=== PATIENT | male | born 1950 | race Caucasian/White ===

== ENCOUNTER → 2017-01-08 | Outpatient (CLI) | payer MEDICARE ==
[~2017-01-08] MED LIST: /TERBI25T PO; ASPI81CH32 PO; ATOR40TA PO; CINA30TA PO; DIAL3000 PO; FURO1TAB15 PO; GABA-279 PO; HUMU70IN SC; INSULADS SC; LOSA100T36 PO; Lantus SQ; PANT40TA2 PO; RENV2.4P PO; SERT-155 PO; SUCR1TA PO; SUCR1TAB56 PO; Spironolactone PO; THYR30TA PO; TORS20TA2 PO; TRIL600T PO
== END ==
LOC: M LAB 12:17
PROVIDERS: ATTEND Internal Medicine Nephrology
DX: Z99.2 Dependence on renal dialysis (principal)

== ENCOUNTER 2017-01-12 19:46 | Inpatient (IN) | payer MEDICARE ==
[~2017-01-12] VITALS: Ht 172.7 cm; Wt 92.7 kg
[~2017-01-12 19:46] MED LIST changes: -ASPI81CH32 PO; -ATOR40TA PO; -CINA30TA PO; -DIAL3000 PO; -FURO1TAB15 PO; -GABA-279 PO; -INSULADS SC; -PANT40TA2 PO; -RENV2.4P PO; -SERT-155 PO; -SUCR1TA PO; -SUCR1TAB56 PO
[2017-01-12] MEDS ORDERED: PANTOPRAZOLE 40MG INJ (PROTONIX) (C9113) IV ONE (20:45)
[2017-01-12 20:46] LABS: BASO % 0.4 % (0.0-1.0); EOS # 0.1 K/mm3 (0.0-0.50); EOS % 1.4 % (0.0-3.0); LARGE UNSTAINED CELL # 0.1 K/mm3 (0.0-0.4); LARGE UNSTAINED CELL % 1.2 % (0.0-4.0); LYMPH # 1.6 K/mm3 (1.5-4.5); LYMPH % 16.7 % (24.0-44.0); MEAN CORPUSCULAR HEMOGLOBIN 28.9 pg (27.0-33.0); MEAN CORPUSCULAR HGB CONC 32.2 g/dl (32.0-36.5); MEAN CORPUSCULAR VOLUME 89.8 fl (80.0-96.0); MONO # 0.6 K/mm3 (0.0-0.8); MONO % 6.3 % (0.0-5.0); NEUTROPHILS # 6.5 K/mm3 (1.8-7.7); NEUTROPHILS % 74.1 % (36.0-66.0); PLATELET COUNT, AUTOMATED 355 k/mm3 (150-450); RED CELL DISTRIBUTION WIDTH 12.5 % (11.5-14.5); WHITE BLOOD COUNT 8.8 K/mm3 (4.0-10.0)
[2017-01-12 20:52] LABS: INR 1.15
[2017-01-12 21:11] LABS: CALCIUM LEVEL 7.6 MG/DL (8.8-10.2); CREATININE FOR GFR 6.01 MG/DL (0.70-1.30); GLOMERULAR FILTRATION RATE 10.1 (>49)
[2017-01-12] MEDS ORDERED: CINA30TA PO (21:58)
[2017-01-12] MEDS ORDERED: DIAL3000 PO (21:58)
[2017-01-12] MEDS ORDERED: GABA-279 PO (21:58)
[2017-01-12] MEDS ORDERED: SERT-155 PO (21:58)
[2017-01-12] MEDS ORDERED: ASPI81CH32 PO (21:58)
[2017-01-12] MEDS ORDERED: ATOR40TA75 PO (21:58)
[2017-01-12] MEDS ORDERED: RENV2.4P PO (21:58)
[2017-01-12] MEDS ORDERED: FURO80TA2 PO (21:58)
[2017-01-12] MEDS ORDERED: INSULADS SC (21:59)
[2017-01-12] MEDS ORDERED: GLUCOSE 4 GM CHEW TABLET PO PRN (23:00)
[2017-01-12] MEDS ORDERED: GLUCAGON FOR INJ 1 MG VIAL (J1610) SC PRN (23:00)
[2017-01-12] MEDS ORDERED: DEXTROSE 50% 50 ML SYRINGE IV PRN (23:00)
[2017-01-12] MEDS ORDERED: ONDANSETRON 4MG/2ML VIAL (J2405) IV PRN (23:00)
[2017-01-13] VITALS (23 sets, daily range): BP systolic 109–181; BP diastolic 58–99
[2017-01-13] MEDS: PANTOPRAZOLE SODIUM 40 MG in D5W MINI-BAG PLUS 50 ML IV SCH ×5 (00:04→17:17)
[2017-01-13] MEDS: HumaLOG INSULIN (NovoLOG) PER UNIT SC SCH ×4 (00:11→17:18)
--- NOTE | 2017-01-13 01:36 | HPE ---
DATE OF ADMISSION: 01/12/2017 PRIMARY CARE PROVIDER: Gabriela Argueta, resident clinic. CHIEF COMPLAINT: Dark tarry stools. HISTORY OF PRESENT ILLNESS: The patient is a 66-year-old man with end-stage renal disease on hemodialysis Friday, Friday, Friday who was reportedly admitted to [facility] on 12/18 and was there for several days in [place]. He tells me that he had lots of fluid and had extra sessions of hemodialysis and Lasix and improved significantly. Upon discharge, he was started on a baby aspirin and told to have a stress test conducted locally when he got back home here. Over the last several days, the patient has noted progressively worsening fatigue, shortness of breath with exertion and then dark tarry stools. For the last 24-48 hours he has noted lightheadedness and dizziness when standing and today noticed ana blood in his stool, which prompted him to present to the emergency room. The patient also has had epigastric pain, which has progressively worsened over the last several days. He denies chest pain, nausea, vomiting. PAST MEDICAL HISTORY: 1. End-stage renal disease followed by Dr. Waters. 2. Secondary hyperparathyroidism. 3. Insulin-dependent diabetes mellitus. 4. Diabetic neuropathy, retinopathy and nephropathy. 5. Hypertension. 6. Dyslipidemia. 7. Obstructive sleep apnea. 8. Depression with inpatient mental health admissions. ALLERGIES: METFORMIN, ROSIGLITAZONE. PAST SURGICAL HISTORY: 1. Bilateral cataract surgery. 2. Gastric bypass surgery and repair. 3. Bilateral shoulder arthroscopy. SOCIAL HISTORY: Lives with his . He is a former drinker, but quit drinking months ago. He is retired. HOME MEDICATIONS: - aspirin 81 mg daily - atorvastatin 40 mg daily - cinacalcet 30 mg daily - Lasix 80 mg three times a day - gabapentin 100 mg daily - sertraline 150 mg daily - Lantus 8-14 units subcutaneously twice a day - Renvela 2.4 grams one packet three times a day - Daily-Isidro 3 mg one tablet REVIEW OF SYSTEMS: Negative other than history of present illness (HPI). FAMILY HISTORY: Noncontributory. PHYSICAL EXAMINATION: VITAL SIGNS: Temperature 98.5, pulse 116, respiratory rate 18, oxygen saturation 96% on room air, blood pressure 109/55. GENERAL: He is a pale, elderly man lying in a stretcher. He does not appear to be in any acute distress. HEENT: He has conjunctival pallor. Moist mucous membranes. No elevation of central venous pressure (CVP). CARDIOVASCULAR EXAMINATION: S1, S2, he is tachycardic with distant heart sounds appreciated. RESPIRATORY EXAMINATION: Clear. ABDOMINAL EXAMINATION: There is tenderness to palpation in the epigastric region. Bowel sounds are present. The abdomen is otherwise soft. EXTREMITIES: No clubbing or cyanosis. There is 1-2+ edema bilaterally. LABORATORY STUDIES: WBC 8.8, hemoglobin 6.5, hematocrit 20.2, platelet count 355. Chemistry panel: Sodium 133, potassium 5.0, chloride 94, bicarbonate 29, BUN 76 , creatinine 6.0. INR is 1.1. No imaging. ASSESSMENT AND PLAN: This is a 66-year-old man with end-stage renal disease presenting now with gastrointestinal (GI) bleed. 1. GI bleed. Given his epigastric symptoms and his recent start of a nonsteroidal antiinflammatory drug (NSAID), although it is a baby aspirin, there is concern for upper GI bleed potentially related to anastomosis site related to gastric bypass surgery versus other ulcer. Given that his blood pressure is somewhat soft and he is tachycardic and likely orthostatic, I will admit him to the medical intensive care unit for a Protonix drip. He is to receive two units of packed red blood cells (PRBCs) stat. We will trend his hemoglobin and hematocrit and transfuse more if necessary. I have spoken with Dr. Mcdermott already this evening. I requested a consultation for general surgery. If the patient fails to improve or his bleeding fails to resolve with the aforementioned measures, he may require endoscopy. They have agreed to see the patient in consultation. The patient is nothing by mouth. 2. End-stage renal disease on hemodialysis and secondary hyperparathyroidism. Will place a consult to Dr. Waters, who will be co-provider tomorrow morning for his regular scheduled hemodialysis. I would suspect the patient will receive several units of blood and will require fluid removal as he appears to be fluid overloaded already. 3. Insulin-dependent diabetes mellitus. Will place him on sliding scale and fingersticks every 6 hours. In relation to his diabetic neuropathy, will continue with his gabapentin. 4. Depression. Continue sertraline. 5. Dyslipidemia. The patient is continued on atorvastatin. 6. Coronary artery disease. It is questionable diagnosis. The patient was started on a statin and an aspirin after being in congestive heart failure (CHF) while in [facility] last month. It is possible that he was found to have coronary artery disease during that stay. I will put a records request in to obtain the discharge summary from that hospitalization. 7. Deep venous thrombosis (DVT) prophylaxis. Sequentials and thromboembolism deterrent stockings (TEDS), no pharmacological agents. DISPOSITION: The patient is admitted to medical intensive care unit to Dr. Guerrier's service who will continue following the patient at 7 a.m. [facility]
[2017-01-13 04:05] LABS: BASO % 0.4 % (0.0-1.0); EOS % 0.4 % (0.0-3.0); LARGE UNSTAINED CELL # 0.1 K/mm3 (0.0-0.4); LARGE UNSTAINED CELL % 1.4 % (0.0-4.0); LYMPH # 1.4 K/mm3 (1.5-4.5); LYMPH % 16.5 % (24.0-44.0); MEAN CORPUSCULAR HEMOGLOBIN 30.3 pg (27.0-33.0); MEAN CORPUSCULAR HGB CONC 34.5 g/dl (32.0-36.5); MEAN CORPUSCULAR VOLUME 87.7 fl (80.0-96.0); MONO # 0.6 K/mm3 (0.0-0.8); MONO % 6.8 % (0.0-5.0); NEUTROPHILS % 74.5 % (36.0-66.0); PLATELET COUNT, AUTOMATED 269 k/mm3 (150-450); RED CELL DISTRIBUTION WIDTH 13.6 % (11.5-14.5)
[2017-01-13 04:27] LABS: ALBUMIN 2.1 GM/DL (3.2-5.2); ALBUMIN/GLOBULIN RATIO 0.7 (1.00-1.93); BILIRUBIN,TOTAL 0.9 MG/DL (0.2-1.0); CALCIUM LEVEL 7.6 MG/DL (8.8-10.2); CREATININE FOR GFR 6.11 MG/DL (0.70-1.30); GLOMERULAR FILTRATION RATE 9.9 (>49); POTASSIUM SERUM 4.9 MEQ/L (3.5-5.1); TOTAL PROTEIN 5.1 GM/DL (6.4-8.2)
[2017-01-13] MEDS: SERTRALINE HCL 50 MG TAB PO SCH (08:56)
[2017-01-13] MEDS: ATORVASTATIN 20 MG TAB PO SCH (08:56)
[2017-01-13] MEDS: CINACALCET 30 MG TAB (SENSIPAR) PO SCH (08:56)
[2017-01-13] MEDS ORDERED: GABAPENTIN 100 MG CAP PO SCH (09:00)
[2017-01-13 13:05] LABS: MEAN CORPUSCULAR HEMOGLOBIN 30.3 pg (27.0-33.0); MEAN CORPUSCULAR HGB CONC 34.7 g/dl (32.0-36.5); MEAN CORPUSCULAR VOLUME 87.3 fl (80.0-96.0); RED CELL DISTRIBUTION WIDTH 13.8 % (11.5-14.5); WHITE BLOOD COUNT 9.8 K/mm3 (4.0-10.0)
--- NOTE | 2017-01-13 14:23 | CR ---
DATE OF CONSULTATION: 01/13/2017 REASON FOR CONSULTATION: Gastrointestinal (GI) bleed in this gentleman with end-stage renal disease who is in need for dialysis. HISTORY OF PRESENT ILLNESS: Mr. Rico is a 66-year-old gentleman with known history of diabetes, hypertension, dyslipidemia, end-stage renal disease and secondary hyperparathyroidism. He is admitted due to tarry stools and some rectal bleeding. His hemoglobin was noticed to be 6.5 on admission. He has been transfused 3 units of packed RBCs. I was notified this morning about his admission and a nephrology consultation was requested. The patient is seen this morning in the intensive care unit. PAST MEDICAL AND SURGICAL HISTORY: Significant for: 1. End-stage renal disease secondary to diabetic nephropathy. 2. Hypertension. 3. Insulin-dependent diabetes. 4. Anemia of chronic kidney disease. 5. Secondary hyperparathyroidism. 6. Dyslipidemia. 7. History of obstructive sleep apnea. 8. History of depression. 9. Prior history of gastric bypass surgery. PAST SURGICAL HISTORY: Significant for: 1. Bilateral cataract surgery. 2. Bilateral shoulder arthroscopy. 3. Gastric bypass surgery. 4. Left arm AV fistula creation. MEDICATIONS: His home medications include: - aspirin 81 mg daily - atorvastatin 40 mg daily - cinacalcet 30 mg daily - Lasix 80 mg three times a week - gabapentin 100 mg daily - sertraline 150 mg daily - Lantus insulin 14 units twice a day - Renvela three tablets three times a day with meals - multivitamin one tablet daily PERSONAL AND SOCIAL HISTORY: Patient is and lives with his five. He has history of prior drinking which he has quit a while ago. He does not smoke. FAMILY HISTORY: Negative for end-stage renal disease. REVIEW OF SYSTEMS: The patient denies any fever or chills. He recently moved to [facility] from [place]. He missed his dialysis treatment, I believe on Friday. He reports to be compliant with dialysis previously. Ears, nose and throat are unremarkable. Cardiovascular system negative for known coronary artery disease. He has a history of congestive heart failure with diminished left ventricular systolic function. Pulmonary system is negative for cough or hemoptysis. GI system is as per history of present illness. The patient reports multiple stools with either dark red or black color. He denies any vomiting. system is negative for dysuria or hematuria. Musculoskeletal system significant for chronic leg edema. Ears, nose and throat are unremarkable. Hematological system is significant for anemia of chronic kidney disease which has now worsened with acute blood loss. He has not had any anticoagulation other than aspirin. Psychosocial system significant for depression. Neurological system negative for seizures. Skin is negative for rash or ulcers. PHYSICAL EXAMINATION: The patient looks pale but not in any acute distress. He is sitting in the chair at the time of my initial visit. Temperature 97.9 degrees Fahrenheit, heart rate 92 per minute and respiratory rate 20 per minute. Blood pressure 135/62 mmHg and oxygen saturation 94% on room air. Head is atraumatic. Ears, nose and throat are unremarkable. Neck is supple and JVD is elevated at about angle. Heart exam reveals tachycardia but no pericardial friction rub. Systolic murmur grade 2/6 is audible. Lungs clear to auscultation bilaterally. Abdomen soft and minimal tenderness in epigastric area is present. Bowel sounds are normal. Extremities have 1+ edema but no cyanosis or clubbing. Left arm AV fistula is patent. Neurologically he is awake, alert and oriented times three. LABORATORY DATA: On admission, hemoglobin was 6.5 and hematocrit 20.2. WBC count 8.8, and platelets 355. Repeat hemoglobin was 7.3 and most recent one is 8.6. Sodium is 134 and potassium 4.9, BUN 80 and creatinine 6.11. Calcium level 7.6, total protein 5.1 and albumin 2.1. PROBLEMS: 1. Acute GI bleed. I am concerned about the possibility of uremic gastritis as the patient has missed dialysis treatment. He will be scheduled for dialysis later this afternoon. Do not use any heparin during dialysis treatment. The patient is also going to have upper endoscopy later this afternoon and will try to get his dialysis completed prior to endoscopy. He has been transfused 3 units of packed RBCs and we will consider to transfuse him further as needed. He should have another CBC drawn at the start of dialysis. 2. End-stage renal disease. The patient is regularly dialyzed on Friday, Friday and Friday schedule. He did miss his dialysis treatment on Friday. He will be dialyzed today and then we will try to keep him on his regular schedule. 3. Congestive heart failure. His volume status is slightly decompensated. Will remove about 3 liters of fluid with hemodialysis. At this point he should not be transfused unless it is an emergency or he is being dialyzed. We will transfuse him during dialysis if needed. 4. Hypertension. Blood pressure is reasonable on current medications and in fact he is currently not receiving any antihypertensives. 5. Secondary hyperparathyroidism. The patient has been on Sensipar during week days and he also receives vitamin D analog during hemodialysis. We will check his intact PTH level and then consider further steps. I thank you for involving me in the care of Mr. Rico. I will follow him along with you.
--- NOTE | 2017-01-13 18:16 | ROOR ---
Patient Name: Octavio Rico Procedure Date: 01/13/2017 5:20 PM Date of : 1950 Age: 66 Gender: Male Note Status: Finalized Procedure: Upper GI endoscopy Indications: Melena Providers: Melecio Peters MD Referring MD: Nereyda Guerrier MD Requesting Provider: Medicines: Monitored Anesthesia Care Complications: No immediate complications. Procedure: Pre-Anesthesia Assessment: - Prior to the procedure, a History and Physical was performed, and patient medications and allergies were reviewed. The patient is competent. The risks and benefits of the procedure and the sedation options and risks were discussed with the patient. All questions were answered and informed consent was obtained. Patient identification and proposed procedure were verified by the physician, the nurse and the cloth opener hand in the procedure room. Mental Status Examination: alert and oriented. Airway Examination: normal oropharyngeal airway and neck mobility. Respiratory Examination: clear to auscultation. CV Examination: normal. Prophylactic Antibiotics: The patient does not require prophylactic antibiotics. Prior Anticoagulants: The patient has taken aspirin, last dose was 1 day prior to procedure. ASA Grade Assessment: IV - A patient with severe systemic disease that is a constant threat to life. After reviewing the risks and benefits, the patient was deemed in satisfactory condition to undergo the procedure. The anesthesia plan was to use monitored anesthesia care (MAC). Immediately prior to administration of medications, the patient was re-assessed for adequacy to receive sedatives. The heart rate, respiratory rate, oxygen saturations, blood pressure, adequacy of pulmonary ventilation, and response to care were monitored throughout the procedure. The physical status of the patient was re-assessed after the procedure. The Endoscope was introduced through the and advanced to the. The Endoscope was introduced through the mouth, and advanced to the afferent and efferent jejunal loops. The upper GI endoscopy was accomplished without difficulty. The patient tolerated the procedure well. Findings: The examined esophagus was normal. Two non-bleeding cratered gastric ulcers with pigmented material were found at the anastomosis. The largest lesion was 10 mm in largest dimension. Clot removal with lavage was attempted. This was partially successful and revealed a non-bleeding lesion with an adherent clot (Mahad Class IIb). Estimated blood loss: none. Exam of the jejunum was otherwise normal. Impression: - Normal esophagus. - Non-bleeding gastric ulcers with pigmented material. - No specimens collected. Recommendation: - Admit the patient to hospital young for ongoing care. - Resume regular diet today. - Use Protonix (pantoprazole) 40 mg PO BID for 3 months. Melecio Peters MD Melecio Peters MD 01/13/2017 6:16:04 PM This report has been signed electronically. Number of Addenda: 0 Note Initiated On: 01/13/2017 5:20 PM Estimated Blood Loss: Estimated blood loss: none.
--- NOTE | 2017-01-13 18:47 | IPNPDOC ---
Text Note Date of Service The patient was seen on 01/13/17. NOTE Subjective: Octavio Rico is a 66 year old male with a h/o CHF, ESRD, IDDM, hypertension, dyslipidemia, depression, diabetic neuropathy, retinopathy and nephropathy with secondary hyperparathyroidism status post gastric bypass in 2009 who presents with the chief complaint of black, tarry stools. The stools start as a black solid and at the end turn to a dark maroon liquid which is described as tarry in consistency. He has had multiple episodes of melena ( about 4 to 5) since yesterday and has never had a GI bleed before. He was seen in the ED yesterday and admitted after a stool GUAIAC was positive. He complains of SOB, light headedness, and dizziness when sitting up. Increasing generalized weakness and fatigue which he rates as 8/10 in severity but states he is always fatigued at baseline. Some lower abdominal pain and nausea with dry heaves but no vomiting or hematemesis. Patient states there used to be a painful, "rock hard lump at the incision site" after his gastric bypass which has since improved on its own. Reports some pedal edema which is unchanged from his baseline. No chest pain or palpitations. No fever or chills. Of note, he was seen at [facility] in [place], [place] on where a CXR showed "fluid in my lungs". He was started on a statin and aspirin 81mg daily and referred for a stress test at that time but never completed one. Denies any history of WA in the past. Objective: Vitals: T:97.9F BP:135/62 RR:20 P:93 O2 Saturation: 94% RA General: Alert, elderly gentleman in no acute distress. Lying in gurney. HEENT: Head: normocephalic, atraumatic. Eyes: PERRL, sclera are nonicteric. Pale conjunctivae. Nose: No external lesions Throat: no pharyngeal erythema or exudates, moist buccal mucosa Neck: Strong, visible waveform pulsations R jugular > L Respiratory: clear to auscultation bilaterally with no wheezes, rales, or rhonchi. Cardiovascular: Tachycardia. There is a systolic murmur appreciated at the right parasternal and left upper parasternal areas. Abdomen: Palpable area of soft tissue in epigastric region that is nontender. Bilateral lower quadrantal tenderness, greatest in the midline lower abdomen. soft, no hepatosplenomegaly appreciated. Bowel sounds present. Extremities: 5/5 strength in upper and lower extremities bilaterally. 3+ pitting pretibial edema bilaterally. Neurological: sensation intact and symmetrical in upper and lower extremities bilaterally. Responds and answers questions appropriately. Lymphatics: no palpable lymph nodes, swollen glands Integumentary: skin free from rashes, lesions, abrasions Vascular: pulses palpable and symmetrical in upper and lower extremities bilaterally. Fistula in place left arm Laboratory data: CBC RBC 2.95 from 2.41 and 2.25 Hgb 8.6 from 7.3 and 6.5 Hct 24.8 from 21.2 and 20.2 CMP Na 134 from 133 Cl 97 from 94 BUN 80 from 76 Cr 6.11 from 6.01 Ca 7.6 from 7.6 Glucose 125 from 92 from 189 albumin low at 2.1 PTH high at 129.2 PT high at 14.8 INR 1.15 PTT 32.3 See remainder of laboratory data below Microbiology: none Imaging: none Assessment/Plan: Acute GI bleed: Suspect NSAID (aspirin) induced vs. anastamotic site bleed of gastric bypass surgery vs. ulcer vs. uremic gastritis. Continue protonix drip. Status-post 2 units PRBCs. Trend H&H and transfuse as necessary. General Surgery consulted for possible EGD. Patient made NPO for this procedure. Normocytic Anemia/Anemia of Chronic Disease: most likely related to blood loss and/or ESRD. Monitor H&H. Transfuse PRN. ESRD on HD on MWF schedule: Nephrology consulted. Follow recommendations. 2/2 Hyperparathyroidism: Follow Nephrology recommendations. IDDM: continue ISS and fingersticks q6h. Diabetic Neuropathy: continue gabapentin. HTN: currently controlled and stable. Continue to monitor. Depression: continue sertraline. Dyslipidemia: continue atorvastatin. ?CAD Dx: On a statin and aspirin after CHF Tx in [facility] last month. Continue statin. Hold aspirin as this could be the cause of his GI bleed. CHF: continue recommendations by nephrology to manage fluid status. DVT ppx: TEDs and SCDs. No pharmacologic ppx recommended at this time due to GI bleed. Immunizations as per protocol. My preceptor for this patient encounter was Dr. Nereyda Guerrier, and was physically present in the building during the encounter and was fully available. As needed, all aspects of the patient interview, examination, medical decision making process, and medical care plan development were reviewed and approved by the preceptor. Preceptor is aware and concurs with the plan as stated in the body of this note and will attest to such by his/her cosignature. VS,Fishbone, I+O VS, Fishbone, I+O Laboratory Tests 01/12/17 20:36 Red Blood Count 2.25 L, Mean Corpuscular Volume 89.8, Mean Corpuscular Hemoglobin 28.9, Mean Corpuscular Hemoglobin Concent 32.2, Red Cell Distribution Width 12.5, Neutrophils (%) (Auto) 74.1 H, Lymphocytes (%) (Auto) 16.7 L, Monocytes (%) (Auto) 6.3 H, Eosinophils (%) (Auto) 1.4, Basophils (%) ( Auto) 0.4, Neutrophils # (Auto) 6.5, Lymphocytes # (Auto) 1.6, Monocytes # (Auto ) 0.6, Eosinophils # (Auto) 0.1, Basophils # (Auto) 0.0, Calcium Level 7.6 L 01/13/17 03:46 Red Blood Count 2.41 L, Mean Corpuscular Volume 87.7, Mean Corpuscular Hemoglobin 30.3, Mean Corpuscular Hemoglobin Concent 34.5, Red Cell Distribution Width 13.6, Neutrophils (%) (Auto) 74.5 H, Lymphocytes (%) (Auto) 16.5 L, Monocytes (%) (Auto) 6.8 H, Eosinophils (%) (Auto) 0.4, Basophils (%) ( Auto) 0.4, Neutrophils # (Auto) 6.0, Lymphocytes # (Auto) 1.4 L, Monocytes # ( Auto) 0.6, Eosinophils # (Auto) 0.0, Basophils # (Auto) 0.0, Calcium Level 7.6 L , Aspartate Amino Transf (AST/SGOT) 15, Alanine Aminotransferase (ALT/SGPT) 16, Alkaline Phosphatase 70, Total Bilirubin 0.9, Total Protein 5.1 L, Albumin 2.1 L 01/13/17 08:55 01/13/17 12:38 Red Blood Count 2.95 L, Mean Corpuscular Volume 87.3, Mean Corpuscular Hemoglobin 30.3, Mean Corpuscular Hemoglobin Concent 34.7, Red Cell Distribution Width 13.8 Vital Signs Date Time Temp Pulse Resp B/P (MAP) Pulse Ox O2 Delivery O2 Flow Rate FiO2 01/13/17 11:47 97.9 93 20 150/70 (96) 93 01/13/17 09:35 Room Air 01/13/17 08:00 2.0 I&O- Last 24 Hours up to 6 AM 01/13/17 05:59 Intake Total 0 ml Output Total 150 ml Balance -150 ml MARY HECK OGME-1 Jan 13, 2017 14:51
[2017-01-13] MEDS: PANTOPRAZOLE 40MG TAB (PROTONIX) PO SCH (20:28)
[2017-01-13] MEDS: SUCRALFATE 1 GM TAB PO SCH (20:28)
[2017-01-13] MEDS ORDERED: HumaLOG INSULIN (NovoLOG) PER UNIT SC SCH (21:00)
[2017-01-13] MEDS ORDERED: SLF 3 ML SYR IV PRN (21:15)
[2017-01-13] MEDS: SLF 3 ML SYR IV SCH (21:33)
[2017-01-14 04:28] VITALS: BP 132/54
[2017-01-14] MEDS: SLF 3 ML SYR IV SCH (05:14)
[2017-01-14 07:06] LABS: MEAN CORPUSCULAR HEMOGLOBIN 30.3 pg (27.0-33.0); MEAN CORPUSCULAR HGB CONC 34.4 g/dl (32.0-36.5); MEAN CORPUSCULAR VOLUME 88.2 fl (80.0-96.0); RED CELL DISTRIBUTION WIDTH 13.9 % (11.5-14.5); WHITE BLOOD COUNT 7.3 K/mm3 (4.0-10.0)
[2017-01-14 07:23] LABS: CALCIUM LEVEL 8.1 MG/DL (8.8-10.2); CREATININE FOR GFR 4.36 MG/DL (0.70-1.30); GLOMERULAR FILTRATION RATE 14.6 (>49); POTASSIUM SERUM 4.4 MEQ/L (3.5-5.1)
[2017-01-14 08:05] VITALS: BP 128/64
[2017-01-14] MEDS: CINACALCET 30 MG TAB (SENSIPAR) PO SCH (08:06)
[2017-01-14] MEDS: HumaLOG INSULIN (NovoLOG) PER UNIT SC SCH ×2 (08:06→11:58)
[2017-01-14] MEDS: SUCRALFATE 1 GM TAB PO SCH ×2 (08:06→11:57)
[2017-01-14] MEDS: SERTRALINE HCL 50 MG TAB PO SCH (08:06)
[2017-01-14] MEDS: ATORVASTATIN 20 MG TAB PO SCH (08:06)
[2017-01-14] MEDS: PANTOPRAZOLE 40MG TAB (PROTONIX) PO SCH (08:07)
[2017-01-14] MEDS ORDERED: PANT40TA2 PO (11:05)
[2017-01-14] MEDS ORDERED: SUCR1TA PO (11:05)
--- NOTE | 2017-01-14 17:34 | IPN ---
DATE: 01/14/2017 Mr. Rico is seen this morning on his bedside. He underwent hemodialysis yesterday which he tolerated very well. He also had upper endoscopy done by Dr. Peters late afternoon which showed two nonbleeding ulcers near the anastomoses. He has history of gastric bypass in the past. Since initial transfusion of three units of packed red blood cells (RBCs), his hemoglobin and hematocrit have remained stable. He denies any further black stools or blood in the rectum. There is no nausea or vomiting and he is tolerating diet very well. He denies any dyspnea or chest pain. PHYSICAL EXAMINATION: On physical examination, temperature 97.3 degrees Fahrenheit, heart rate 110 per minute and respiratory rate 18 per minute. Blood pressure 128/64 mmHg and oxygen saturation 97% on two liters oxygen. Head is atraumatic. Neck is supple and jugular venous distention (JVD) is mildly elevated above sternal angle. Ears, nose and throat are unremarkable. Heart sounds are irregular in rhythm. Lungs with few basilar rales bilaterally. Abdomen is soft and nontender and without a palpable organomegaly. Extremities without any cyanosis or clubbing. Left arm arteriovenous (AV) fistula is patent. Neurologically, he is awake, alert and oriented times three. LABORATORY DATA: Today's laboratories show sodium level 136 and potassium 4.4. BUN 45 and creatinine 4.36. Calcium 8.1. WBC count 7.3, hemoglobin 8.5 and hematocrit 24.8. Platelets are 290. PROBLEMS: 1. Acute blood loss anemia. His hemoglobin was 6.5 on admission and he received three units of packed red blood cells (RBCs). Anemia has improved significantly since admission and has remained stable over the last 24 hours. 2. Gastrointestinal (GI) bleed and gastric ulcers. The patient will remain on a proton pump inhibitor (PPI). He did have two gastric ulcers but no active bleeding. He has been placed on Carafate 1 gram four times a day in addition to Protonix 40 mg twice a day which will be continued as outpatient. 3. End-stage renal disease. The patient was dialyzed yesterday and next dialysis will be scheduled for 01/15/2017 as an outpatient. We will not give him heparin during dialysis for the next two treatments. 4. Congestive heart failure. His volume status is mildly decompensated. We will try to remove about three liters of fluid with next hemodialysis on 01/15/2017. 5. Diabetes. His diabetes has been reasonably well-controlled during his stay here. The patient will resume his chronic insulin therapy at home. DISPOSITION: From a renal standpoint, the patient can be discharged to home today and followup as an outpatient. He has recently moved to [place] from [facility]. The patient will be seen in my office to establish for care and he will also followup at outpatient dialysis unit.
--- NOTE | 2017-01-14 19:45 | IPNPDOC ---
Text Note Date of Service The patient was seen on 01/14/17. VS,Vine, I+O VS, Fishbone, I+O Laboratory Tests 01/14/17 06:54 Red Blood Count 2.81 L, Mean Corpuscular Volume 88.2, Mean Corpuscular Hemoglobin 30.3, Mean Corpuscular Hemoglobin Concent 34.4, Red Cell Distribution Width 13.9, Calcium Level 8.1 L Vital Signs Date Time Temp Pulse Resp B/P (MAP) Pulse Ox O2 Delivery O2 Flow Rate FiO2 01/14/17 08:05 97.3 117 18 128/64 (85) 97 Nasal Cannula 2.0 I&O- Last 24 Hours up to 6 AM 01/14/17 06:00 Intake Total 940 ml Output Total 2550 ml Balance -1610 ml MARY HECK-1 Jan 14, 2017 19:45
--- NOTE | 2017-01-14 19:51 | DS.PDOC ---
Discharge Summary General Date of Admission Jan 12, 2017 at 22:54 Date of Discharge 01/14/17 Primary Care Physician: GABRIELA ARGUETA DO Attending Physician: SANTOSH OROZCO DO Specialist/Consultants Involve: AMARI WATERS MD @ Specialist/Consultants Involve Dr. Ronnell Peters Discharge Summary Consults: Nephrology: Dr. Amari Waters General Surgery: Dr. Ronnell Peters Procedures performed during hospital stay: Upper GI Endoscopy Discharge diagnosis: Acute GI Bleed Normocytic Anemia Anemia of Chronic Disease Secondary diagnosis: End Stage Renal Disease on Hemodialysis on MWF schedule Secondary Hyperparathyroidism Insulin Dependent Diabetes Mellitus Diabetic Neuropathy Hypertension Depression Dyslipidemia Possible Coronary Artery Disease (unconfirmed) Congestive Heart Failure Hospital course: Mr. Rico is a 66 yo M with a PMH of ESRD (secondary to diabetic nephropathy) on HD on MWF schedule and secondary hyperparathyroidism, anemia of CKD, JACKELYN, depression, hx of gastric bypass surgery, CHF, IDDM, HTN, dyslipidemia , presented to [facility] ED on 01/12/17 for progressively worsening fatigue, SOB with exertion, lightheadedness and dizziness for 24-48 hours prior to arrival, and dark tarry stools with ana blood in his stool. He had just been discharged from [facility] in [place] on 12/18 for reported fluid overload for which he had extra session of HD and lasix with noted improvement. He was begun on a baby aspirin upon discharge. He was instructed to apparently have a stress test done back home here locally. However, he began to have the above noted symptoms several days after discharge. On the H&P physical examination, patient was reported to have epigastric tenderness to palpation and 1-2+ edema bilaterally. H&H was 6.5 and 20.2 respectively, BUN was 76, Cr was 6. Patient was admitted for GI bleed. There was a concern for upper GI bleed potentially related to the anastomatic site related to patient's gastric bypass surgery versus possible ulcer vs. NSAID induced bleed (recently begun aspirin). Patient was admitted to the ICU for protonix drip and received 3 units of PRBCs. General surgery was consulted. Nephrology was consulted for ESRD and secondary hyperparathyroidism as well as for fluid management. Patient was placed on insulin sliding scale and fingersticks q6h. His home medications were continued. Patient also may have coronary artery disease but this is a questionable diagnosis. After being at [facility] and treated for CHF, he was started on a statin and aspirin last month. Therefore, it is possible that they may have found CAD during that hospitalization. Patient was given DVT prophylaxis with TEDs and sequentials but no pharmacologic therapy due to bleeding risk. EGD was performed which showed normal esophagus, non-bleeding gastric ulcers with pigmented material at the anastamosis site of the gastric bypass surgical site, and no specimens were collected. A clot removal with lavage was attempted which was partially successful and revealed a non-bleeding lesion with an adherent clot (Mahad Class IIb). Jejunum was normal. Dr. Peters recommended for patient to resume his regular diet and to use protonix 40 mg PO BID x 3 months. During nephrology consult, Dr. Waters was concerned about the possibility of uremic gastritis as the patient had missed a dialysis treatment. Dr. Waters ordered a dialysis treatment on 01/13/17 and for patient to continue with his regular dialysis schedule. On 01/14/17, patient reported improvement in his symptoms and denied SOB, lightheadedness, dizziness, rectal bleeding. He was clinically and hemodynamically stable for discharge. His H&H was 8.5 and 24.8. BUN was 45 and Cr was 4.36. GFR was 14.6. PTH intact was 129.2. Progress note on date of discharge: Subjective: Patient seen and examined sitting up in chair. Denies headache, fevers, chills, lightheadedness, chest pain, SOB, nausea, vomiting, abdominal pain, diarrhea, constipation, weakness, dizziness, melena, hematochezia, hematemesis. Denies fatigue more than usual. Admits to some lower extremity edema but improved from prior after hemodialysis yesterday. Objective: Vitals: T:97.3 F BP:128/64 RR:18 P:117 O2 Saturation: 97% on 2L nasal cannula. General: Alert, elderly gentleman in no acute distress. Sitting up in chair. HEENT: Head: normocephalic, atraumatic. Eyes: PERRL, sclera are nonicteric. + Conjunctival pallor. Nose: No external lesions Neck: Supple. Respiratory: clear to auscultation bilaterally with no wheezes, rales, or rhonchi. Cardiovascular: Tachycardic rate. +Systolic murmur appreciated at the right parasternal and left upper parasternal areas. Abdomen: Soft, nontender, nondistended, no hepatosplenomegaly appreciated. Bowel sounds present. Extremities: 1-2+ pitting pretibial edema bilaterally. Neurological: no focal neurologic deficits appreciated bilaterally. Integumentary: skin free from rashes, lesions, abrasions Vascular: +2 dorsalis pedis and radial pulses palpable and symmetric bilaterally. Fistula in place left arm. Laboratory data: See remainder of laboratory data below Microbiology: none Imaging: none Assessment: 66 yo M presented for acute GI bleed suspected due to possible uremic gastritis vs. NSAID induced (aspirin) vs. anastamotic site of bleed of gastric bypass surgery vs. other ulcer. Status-post 3 units PRBCs. Disposition: Clinically and hemodynamically stable for discharge to home. Will stop aspirin. He will continue his other home medications. Follow-up: With Dr. Amari Waters in 1-[address] Peters within 1-2 weeks. With PCP within 3-5 days. Activity: As tolerated. Diet: Regular Medications on discharge: Please see below. Cc: Dr. Gabriela Argueta Time spent on discharge: 35 minutes. Vital Signs/I&Os Vital Signs Date Time Temp Pulse Resp B/P (MAP) Pulse Ox O2 Delivery O2 Flow Rate FiO2 01/14/17 08:05 97.3 117 18 128/64 (85) 97 Nasal Cannula 2.0 I&O- Last 24 Hours up to 6 AM 01/14/17 06:00 Intake Total 940 ml Output Total 2550 ml Balance -1610 ml Laboratory Data Labs 24H Laboratory Tests 2 01/13/17 20:22: Bedside Glucose (Misc Panel) 207H 01/14/17 06:54: Anion Gap 7L, Glomerular Filtration Rate 14.6L, Blood Urea Nitrogen 45H, Creatinine 4.36H, Sodium Level 136, Potassium Level 4.4, Chloride Level 100, Carbon Dioxide Level 29, Calcium Level 8.1L 01/14/17 11:51: Bedside Glucose (Misc Panel) 192H CBC/BMP Laboratory Tests 01/14/17 06:54 Red Blood Count 2.81 L, Mean Corpuscular Volume 88.2, Mean Corpuscular Hemoglobin 30.3, Mean Corpuscular Hemoglobin Concent 34.4, Red Cell Distribution Width 13.9, Calcium Level 8.1 L FSBS Laboratory Tests Test 01/13/17 20:22 01/14/17 11:51 Range/Units Bedside Glucose (Misc Panel) 207 192 80-115 MG/DL Discharge Medications Scheduled (Sertraline HCl) 50 Mg Tab, 50 MG PO DAILY, (Reported) (Dialyvite 3000 3 mg) 1 Tab Tab, 1 TAB PO DAILY, (Reported) Atorvastatin Calcium (Atorvastatin Calcium) 40 Mg Tab, 40 MG PO DAILY, (Reported ) Cinacalcet Hydrochloride (Sensipar) 30 Mg Tab, 30 MG PO DAILY, (Reported) Insulin Glargine (Lantus) 100 Unit/Ml Inj, 8-14 UNIT SC BID, (Reported) Pantoprazole Sodium (Pantoprazole Sodium) 40 Mg Tab, 40 MG PO BID, (Reported) Sevelamer Carbonate (Renvela Oral Suspension) 2.4 Gm Ron, 1 PKT PO WM, (Reported ) PATIENT STATES HAS BEEN TOO WEAK TO TAKE FOR FEW DAYS Sucralfate (Sucralfate) 1 Gm Tab, 1 GM PO ACHS, (Reported) Scheduled PRN Gabapentin (Gabapentin) 100 Mg Cap, 100 MG PO DAILY PRN for DIABETIC NEUROPATHY, (Reported) Allergies Coded Allergies: Metformin (Verified Adverse Reaction, Severe, Heart Failure, 12/04/12) Rosiglitazone (Verified Adverse Reaction, Severe, Heart Failure, 12/04/12) GME ATTESTATION GME ATTESTATION My preceptor for this patient encounter was Dr. Santosh Orozco, and was physically present in the building during the encounter and was fully available. As needed, all aspects of the patient interview, examination, medical decision making process, and medical care plan development were reviewed and approved by the preceptor. Preceptor is aware and concurs with the plan as stated in the body of this note and will attest to such by his/her cosignature. MARY HECK OGME-1 Jan 14, 2017 19:51
[2017-01-14] MEDS ORDERED: GABAPENTIN 100 MG CAP PO SCH (21:00)
== END 2017-01-14 12:45 | disposition home health service (06) | DRG 377 ==
LOC: M ED 20:14 → M ED INP 22:54 → M ICU 23:47 → M PCU 01-13 09:40
PROVIDERS: ADMIT Internal Medicine; ATTEND General Practice
PROC: 30233N1 Transfusion of Nonautologous Red Blood Cells into Peripheral Vein, Percutaneous Approach (ICD-10-PCS; principal; 2017-01-12)
PROC: 0DJ08ZZ Inspection of Upper Intestinal Tract, Via Natural or Artificial Opening Endoscopic (ICD-10-PCS; 2017-01-13)
PROC: 0DC68ZZ Extirpation of Matter from Stomach, Via Natural or Artificial Opening Endoscopic (ICD-10-PCS; 2017-01-13)
PROC: 5A1D00Z (ICD-10-PCS; 2017-01-14)
DX: K92.2 Gastrointestinal hemorrhage, unspecified (principal); N18.6 End stage renal disease; N25.81 Secondary hyperparathyroidism of renal origin; I13.2 Hypertensive heart and chronic kidney disease with heart failure and with stage 5 chronic kidney disease, or end stage renal disease; D62 Acute posthemorrhagic anemia; E11.40 Type 2 diabetes mellitus with diabetic neuropathy, unspecified; E78.5 Hyperlipidemia, unspecified; F32.9 Major depressive disorder, single episode, unspecified; I50.9 Heart failure, unspecified; I25.10 Atherosclerotic heart disease of native coronary artery without angina pectoris; E11.21 Type 2 diabetes mellitus with diabetic nephropathy; D63.1 Anemia in chronic kidney disease; G47.33 Obstructive sleep apnea (adult) (pediatric); Z79.899 Other long term (current) drug therapy; Z88.8 Allergy status to other drugs, medicaments and biological substances; E11.319 Type 2 diabetes mellitus with unspecified diabetic retinopathy without macular edema; Z79.82 Long term (current) use of aspirin; Z79.01 Long term (current) use of anticoagulants; K25.9 Gastric ulcer, unspecified as acute or chronic, without hemorrhage or perforation

== ENCOUNTER → 2017-01-16 | Outpatient (REF) | payer MEDICARE ==
[~2017-01-16] MED LIST changes: +ASPI81CH32 PO; +ATOR40TA PO; +CINA30TA PO; +DIAL3000 PO; +FURO1TAB15 PO; +GABA-279 PO; +INSULADS SC; +PANT40TA2 PO; +RENV2.4P PO; +SERT-155 PO; +SUCR1TA PO; +SUCR1TAB56 PO
[2017-01-16 16:47] LABS: BASO % 0.4 % (0.0-1.0); EOS # 0.1 K/mm3 (0.0-0.50); EOS % 1.1 % (0.0-3.0); LARGE UNSTAINED CELL # 0.1 K/mm3 (0.0-0.4); LARGE UNSTAINED CELL % 1.8 % (0.0-4.0); LYMPH # 1.4 K/mm3 (1.5-4.5); LYMPH % 15.5 % (24.0-44.0); MEAN CORPUSCULAR HEMOGLOBIN 29.9 pg (27.0-33.0); MEAN CORPUSCULAR HGB CONC 33.3 g/dl (32.0-36.5); MEAN CORPUSCULAR VOLUME 89.9 fl (80.0-96.0); MONO # 0.8 K/mm3 (0.0-0.8); MONO % 9.7 % (0.0-5.0); NEUTROPHILS # 5.8 K/mm3 (1.8-7.7); NEUTROPHILS % 71.6 % (36.0-66.0); PLATELET COUNT, AUTOMATED 354 k/mm3 (150-450); RED CELL DISTRIBUTION WIDTH 14.2 % (11.5-14.5); WHITE BLOOD COUNT 8.2 K/mm3 (4.0-10.0)
== END ==
LOC: M SFHCPLAZ 14:01
DX: K25.4 Chronic or unspecified gastric ulcer with hemorrhage (principal)

== ENCOUNTER 2017-01-19 07:54 | Inpatient (IN) | payer MEDICARE ==
[~2017-01-19] VITALS: Ht 172.7 cm; Wt 87.4 kg
[~2017-01-19 07:54] MED LIST changes: -SUCR1TAB56 PO
[2017-01-19 08:42] LABS: BASO % 0.4 % (0.0-1.0); EOS # 0.1 K/mm3 (0.0-0.50); EOS % 1.9 % (0.0-3.0); LARGE UNSTAINED CELL # 0.2 K/mm3 (0.0-0.4); LARGE UNSTAINED CELL % 2.3 % (0.0-4.0); LYMPH # 1.6 K/mm3 (1.5-4.5); LYMPH % 20.8 % (24.0-44.0); MEAN CORPUSCULAR HEMOGLOBIN 29.7 pg (27.0-33.0); MEAN CORPUSCULAR HGB CONC 32.8 g/dl (32.0-36.5); MEAN CORPUSCULAR VOLUME 90.5 fl (80.0-96.0); MONO # 0.5 K/mm3 (0.0-0.8); MONO % 7.3 % (0.0-5.0); NEUTROPHILS # 4.7 K/mm3 (1.8-7.7); NEUTROPHILS % 67.3 % (36.0-66.0); PLATELET COUNT, AUTOMATED 365 k/mm3 (150-450); RED CELL DISTRIBUTION WIDTH 14.5 % (11.5-14.5); WHITE BLOOD COUNT 6.9 K/mm3 (4.0-10.0)
--- NOTE | 2017-01-19 08:48 | REP ---
Portable chest, 01/19/2017, 2069, single AP view, patient sitting: Comparison 02/21/2013. There are bilateral pleural effusions as an interval change. Cardiac size appears enlarged, however there has magnification from portable positioning. The visualized lung ewing are clear. Sierra, mediastinum, bony thorax are unremarkable. Impression: Bilateral pleural effusions. Cardiomegaly. Signed by Saul Pace MD 01/19/2017 08:40 A
[2017-01-19 08:59] LABS: CALCIUM LEVEL 8.1 MG/DL (8.8-10.2); CREATININE FOR GFR 4.97 MG/DL (0.70-1.30); GLOMERULAR FILTRATION RATE 12.5 (>49); POTASSIUM SERUM 3.6 MEQ/L (3.5-5.1)
[2017-01-19] MEDS ORDERED: PANT40TA2 PO (09:53)
[2017-01-19] MEDS ORDERED: SUCR1TAB56 PO (09:53)
[2017-01-19 10:21] LABS: INR 1.1
[2017-01-19] MEDS ORDERED: GABAPENTIN 100 MG CAP PO PRN (10:30)
[2017-01-19] MEDS ORDERED: ACETAMINOPHEN TAB 650MG DOSE (2X325MG) PO PRN (10:30)
[2017-01-19] MEDS ORDERED: DEXTROSE 50% 50 ML SYRINGE IV PRN (10:30)
[2017-01-19] MEDS ORDERED: GLUCOSE 4 GM CHEW TABLET PO PRN (10:30)
[2017-01-19] MEDS ORDERED: GLUCAGON FOR INJ 1 MG VIAL (J1610) SC PRN (10:30)
[2017-01-19 10:33] LABS: PERCENT SATURATION 17.7 % (19.7-37.4)
[2017-01-19 10:55] LABS: MAGNESIUM LEVEL 2.4 MG/DL (1.8-2.4)
[2017-01-19 11:18] LABS: PHOSPHORUS LEVEL 3.5 MG/DL (2.5-4.9)
--- NOTE | 2017-01-19 12:10 | HPE ---
DATE OF ADMISSION: 01/19/2017 PRIMARY CARE PROVIDER: Dr. Argueta, resident clinic. CHIEF COMPLAINT: Increased shortness of breath with dizziness. HISTORY OF PRESENT ILLNESS: This patient is a 66-year-old male with a past medical history significant for end stage renal disease, insulin dependent diabetes, diabetic neuropathy, retinopathy and nephropathy, hypertension, dyslipidemia, obstructive sleep apnea, and depression who presented to [facility] on 01/19/2017 for worsening shortness of breath. The patient stated for the past two weeks he started having more shortness of breath and he could not lie flat and he also noticed to have increased fatigue and difficulty with daily activity functions. The patient was also noted to have dizziness during the body posture changes. The patient has a history of recent hospitalization from 01/12/2017 to 01/14/2017 for symptomatic anemia from gastrointestinal (GI) bleed. Upper endoscopy was performed. The patient was found to have gastric ulcers. Per patient, after discharge the patient did not see any blood in the stool. The patient did not get a colonoscopy the last time because he thought the bleeding seems more like an upper GI bleed not lower GI bleed and he did not feel the need for the colonoscopy. The patient also has a history of obstructive sleep apnea. He was on CPAP previously; however, he could not tolerate it. He had a gastric bypass and after significant weight loss he thought he did not need the obstructive sleep apnea treatment anymore. The list of discharge medications were reviewed with the patient; however, per patient he was told take the water pill three times a day; however, he only remembered to take it once a day. ALLERGIES: - METFORMIN - ROSIGLITAZONE PAST MEDICAL HISTORY: 1. End stage renal disease on hemodialysis on Mondays, Wednesdays and Fridays schedule. 2. Secondary hyperparathyroidism. 3. Insulin dependent diabetes. 4. Diabetic neuropathy, retinopathy and nephropathy. 5. Hypertension. 6. Dyslipidemia. 7. Obstructive sleep apnea, not on CPAP. 8. Depression and had history [facility] admission in the past. PAST SURGICAL HISTORY: 1. Gastric bypass in 2009. 2. Bilateral shoulder arthroplasty. SOCIAL HISTORY: Denies smoking. Patient quit drinking many months ago. The patient lives with his . The patient is full code. HOME MEDICATIONS: - atorvastatin 40 mg by mouth daily - Sensipar 30 mg by mouth daily - Daily-Isidro one tablet by mouth daily - Lasix 80 mg by mouth three times a day - gabapentin 100 mg by mouth daily - Lantus 14 units subcutaneously twice a day - pantoprazole 40 mg by mouth twice a day - sertraline 50 mg by mouth daily - Renvela one packet by mouth with meals - sucralfate 1 gram by mouth before meals and at bedtime REVIEW OF SYSTEMS: General: No fever. No chills. HEENT: No vision change. No auditory changes. Cardiovascular: No chest pain. No palpitations. Respiratory: Increased shortness of breath after discharge from the hospital last time. Now patient cannot sleep flat. Denies any sputum production. He denied any weakness. Abdomen: History of gastric bypass in 2009. The patient was recently admitted for GI bleed from 01/12/2017 to 01/14/2017. Denies any active bleeding after discharge. The patient had an EGD which was negative. Musculoskeletal: Noted to have a worsening swelling of the bilateral lower extremities. Neurological: Patient has chronic diabetic neuropathy, has decreased sensation of the bilateral lower extremities for many years. OBJECTIVE: Vital Signs: Temperature 97.9. Pulse 80. Respirations 16. Blood pressure 124/63. Pulse oximetry 97% in room air. General: No signs of acute distress. Alert and oriented times three. HEENT: Positive jugular venous distention (JVD). Normocephalic, atraumatic. Cardiovascular: Positive systolic murmur best heard at the left sternal border. Positive S1, S2. Regular rate. Lungs: Positive fine crackles bilaterally. No wheezes. Abdomen: Morbidly obese. Soft. Nontender. Nondistended. Bowel sounds present. No rebound. No guarding. Extremities: 2+ pitting edema below the knee. No sign of cyanosis. LABORATORY DATA: WBC 6.9, hemoglobin 7.5, hematocrit 23, and platelet count 365. Sodium is 136, potassium 3.6, chloride 94, BUN 28, creatinine 4.97, GFR 12.5, fasting glucose 81, calcium 8.1, magnesium 2.4, iron 31, TIBC 175, ferritin 1279. BNP 1490. Triglycerides 61. Total cholesterol 110. LDL is 43.8. TSH is 1.02. PT 14.3, INR 1.1. IMAGING STUDIES: Chest x-ray shows bilateral pleural effusion and cardiomegaly. ASSESSMENT AND PLAN: 1. Acute respiratory distress, most likely secondary to fluid overload. The patient will be admitted to the progressive care unit (PCU) on the inpatient status. The television agent has been consulted. The patient may have urgent hemodialysis today followed by ultra filtration tomorrow. According to the history, the patient has been very noncompliant with his medications. This creates a group home issue for the patient's medical management. 2. Symptomatic anemia. The patient came in with hemoglobin of 7.5 with hematocrit of 23. The patient had recent hospitalization for GI bleed. The patient was admitted from 01/12/2017 to 01/14/2017 and the patient received two packs of red blood cell transfusion on 01/12/2017 and 01/13/2017. EGD was done. The patient was found to have non bleeding gastric ulcers. The patient was discharged home. No colonoscopy was performed at that time. Per patient, he has not noticed any bleeding. Will follow with Hemoccult. The patient will receive one pack of red blood cell transfusion during hemodialysis today. Blood counts already obtained during the admission process. 3. Insulin dependent diabetes. Will follow A1c. The patient will be on long acting Levemir twice a day with sliding scale. 4. Diabetic neuropathy, retinopathy and nephropathy. The patient is on gabapentin. 5. Secondary hyperparathyroidism. 6. Hypertension. Will refer the Lasix dosage to the nephrology team. 7. Dyslipidemia. Atorvastatin. Lipid panel is really in normal range. 8. Obstructive sleep apnea. Per patient, patient cannot tolerate CPAP. The patient will be on obstructive sleep apnea protocol. 9. Depression. [facility] admission. The patient is on sertraline 50 mg by mouth daily. 10. History of gastric bypass surgery in 2009. Will follow with the electrolytes to see if the patient has electrolyte abnormalities causing patient's anemia. 11. Deep vein thrombosis (DVT) prophylaxis. The patient has history of GI bleed. Currently the patient has symptomatic anemia. Will try to rule out active bleeding. No anticoagulation is warranted at this time. Will continue him with thromboembolic deterrent stockings (TEDS) and sequential compression device. MTDD
[2017-01-19] MEDS ORDERED: DARBEPOETIN 100 MCG/0.5 ML *DIALYSIS* SYRINGE (J0882) IV SCH (13:15)
--- NOTE | 2017-01-19 14:22 | CR ---
DATE OF CONSULTATION: 01/19/2017 REQUESTING PHYSICIAN: Dr. Mila Cordova REASON FOR CONSULTATION: Management of end-stage renal disease, hemodialysis and fluid overload. CHIEF COMPLAINT: Patient presented to the emergency room today with progressive shortness of breath, inability to sleep at night. HISTORY OF PRESENT ILLNESS: Mr. Octavio Rico is a 66-year-old male with past medical history of end-stage renal disease on hemodialysis, well known to nephrology service from outpatient dialysis center. Patient was recently admitted to the hospital from 01/14/2017 for upper gastrointestinal (GI) bleeding, which showed gastric ulcers. Patient was stabilized, was given blood transfusions and sent home, but now, patient has come back to the hospital with progressively worsening shortness of breath, dyspnea, orthopnea, inability to ambulate. Patient reports he could not sleep all night. He was sitting up. He also complained about increased fatigue and swelling of the legs. On initial examination and imaging in the emergency room, he was found to have bilateral pleural effusions. His hemoglobin is down to 7.5 again. Patient is being admitted with symptomatic anemia and congestive heart failure (CHF), along with fluid overload. Nephrology service has been called for further help in the management of end-stage renal disease, hemodialysis, fluid overload and anemia requiring blood transfusion. PAST MEDICAL HISTORY: Patient has a past medical history of: 1. End-stage renal disease, on hemodialysis every Friday, Friday and Friday. Cause of renal failure was diabetic nephropathy. 2. Hypertension. 3. Insulin-dependent diabetes mellitus. 4. Secondary hyperparathyroidism. 5. Obstructive sleep apnea, not currently on continuous positive airway pressure (CPAP) . 6. Depression. 7. Hyperlipidemia. PAST SURGICAL HISTORY: Patient has a history of: 1. Gastric bypass surgery in 2009. 2. Bilateral cataract surgeries. 3. Bilateral shoulder arthroplasties. 4. Left upper arm atrioventricular (AV) fistula placement. ALLERGIES: Patient is allergic to METFORMIN and ROSIGLITAZONE. FAMILY HISTORY: No significant family history of end-stage renal disease requiring hemodialysis. SOCIAL HISTORY: Patient denies any smoking or illicit drug abuse. Patient used to drink alcohol, but he quit. He lives with at his home. HOME MEDICATIONS: Patient's home medications include: - Sensipar 30 mg by mouth daily - Arielle-Isidro one tablet daily - atorvastatin 40 mg daily - Lasix 80 mg by mouth three times a day, but patient is not very compliant with this dose of Lasix. - gabapentin 100 mg daily - Lantus 14 units twice a day - Protonix 40 mg twice a day - sertraline 50 mg daily - Renvela one packet three times a day with meals - sucralfate 1 gram by mouth before meals and at bedtime REVIEW OF SYSTEMS: GENERAL: Patient is complaining of weakness and inability to walk. Otherwise, he denies any fevers or chills. EYES: He denies any burry vision or double vision. EARS, NOSE and THROAT: He denies any dysphagia, odynophagia, ear discharge. CARDIOVASCULAR: He denies any chest pain, but he dose report lower extremity edema. RESPIRATORY: Patient reports dyspnea, orthopnea and shortness of breath on mild exertion. GASTROINTESTINAL: He denies any melena or hematochezia. He denies any vomiting, but he reports recent history of gastrointestinal (GI) bleed and gastric ulcers. GENITOURINARY: He denies any dysuria or hematuria. He reports that he still makes about 4-500 mL of urine a day. MUSCULOSKELETAL: He denies any muscle aches and pains, but he reports lower extremity edema. CENTRAL NERVOUS SYSTEM: Patient reports diabetic neuropathy, but denied any seizures or strokes. PSYCHIATRIC: Patient reports history of depression. SKIN: He denies any rashes or ulcers. HEMATOLOGICAL/ONCOLOGIC: Patient reports history of anemia secondary to end-stage renal disease ENDOCRINE: Patient reports history of insulin-dependent diabetes and secondary hyperparathyroidism. All other review of systems is negative. PHYSICAL EXAMINATION: GENERAL: Patient is awake, alert oriented times three, sitting upright in the bed, in mild respiratory distress. VITAL SIGNS: Temperature is 98 degrees Fahrenheit, blood pressure 122/58, pulse 80, respiratory rate 18, saturating 98% on nasal cannula. HEAD and NECK EXAMINATION: Extraocular muscles intact. Pupils equally round and reactive to light. Mucous membranes are moist. Neck is supple. There is slightly elevated jugular venous distention (JVD). CARDIOVASCULAR: S1, S2. Regular rate. No murmurs, rubs or gallops. RESPIRATORY: Decreased breath sounds at the basses. Decreased vocal resonance bilaterally at the bases. Mild crepitations on deep inspiration. ABDOMEN: Soft. Positive bowel sounds. Nontender. No ascites. No organomegaly. EXTREMITIES: No clubbing or cyanosis. Pulses 2+. Patient has 2+ pitting edema of the bilateral lower extremities up to knees. CENTRAL NERVOUS SYSTEM: No focal neurological deficit. Power is 5/5 in all extremities. PSYCHIATRIC: Normal mood and affect. AV ACCESS: Patient has a left upper arm atrioventricular (AV) fistula with positive thrill and bruit. LABORATORY REVIEW: CBC showed a WBC of 6.9, hemoglobin 7.5, platelets 365. INR 1.1. PTT 39.3. BMP showed sodium 136, potassium 3.6, chloride 94, bicarbonate 35, BUN 28, creatinine 4.9, calcium 8.1, iron 31, transferrin saturation 17.7, ferritin 1279. Brain natriuretic peptide (BNP) 1490. IMAGING: A chest x-ray done today in the emergency room showed bilateral pleural effusions and cardiomegaly. CURRENT INPATIENT MEDICATIONS: Patient's current inpatient medications include: - Tylenol as needed - Lipitor 40 mg - Sensipar 30 mg - Neurontin 100 mg as needed - Levemir 8 units subcutaneously twice a day - Protonix 40 mg by mouth twice a day - Zoloft 50 mg daily - Carafate 1 gram by mouth with meals ASSESSMENT: A 66-year-old male with past medical history of end-stage renal disease on hemodialysis, recently admitted for a gastrointestinal (GI) bleed. Patient is being admitted again with shortness of breath secondary to fluid overload and symptomatic anemia. PLAN: 1. Acute respiratory distress secondary to fluid overload. Patient has bilateral pleural effusions on the x-ray. I am going to emergently dialyze the patient. I shall try to do an ultrafiltration of about 3 liters, as tolerated by his blood pressure. If needed, patient will get another session of ultrafiltration tomorrow morning. 2. Symptomatic anemia. Patient recently had upper gastrointestinal (GI) bleed secondary to bleeding ulcers. Continue the Protonix at this time. Patient will need repeat fecal occult blood testing to make sure he is not still bleeding. I am going to get the patient one unit of packed red blood cells transfusion during dialysis today. Patient will get another unit tomorrow morning. Consent was already obtained by the hospitalist team. 3. Lower extremity edema. Patient has some residual kidney function. He is supposed to be on Lasix 80 mg by mouth three times a day. He is apparently not taking Lasix as outpatient. I am going to start the patient on Lasix IV daily, 4. Secondary hyperparathyroidism. Continue current dose of Sensipar 30 mg by mouth daily. 5. Insulin-dependent diabetes mellitus. Continue insulin sliding scale and Humalog, as per home dose. 6. Depression. Continue home dose of Zoloft 50 mg by mouth daily. 7. Malabsorption secondary to history of gastric bypass surgery in the past. Iron levels were done, which are adequate at this time. B12 and folate level are still pending. Continue the dialysis vitamins daily. Thank you for involving us in the care of this patient. We shall be happy to follow the patient along with you tomorrow morning. Emergent hemodialysis was arranged and patient was examined during dialysis as well. Plan of care was discussed with the emergency room (ER) physician, Dr. Almodovar and with the hospitalist team, Dr. Mila Cordova.
[2017-01-19 15:15] VITALS: BP 148/70
[2017-01-19] MEDS: PANTOPRAZOLE 40MG TAB (PROTONIX) PO SCH ×2 (15:27→20:25)
[2017-01-19] MEDS: HumaLOG INSULIN (NovoLOG) PER UNIT SC SCH ×3 (15:27→20:25)
[2017-01-19] MEDS: SUCRALFATE 1 GM TAB PO SCH ×3 (15:27→20:25)
[2017-01-19] MEDS: ATORVASTATIN 20 MG TAB PO SCH (15:52)
[2017-01-19] MEDS: SERTRALINE HCL 50 MG TAB PO SCH (15:52)
[2017-01-19 16:00] VITALS: BP 134/63
[2017-01-19] MEDS: CINACALCET 30 MG TAB (SENSIPAR) PO SCH (18:30)
--- NOTE | 2017-01-19 19:32 | ECGEPIP ---
Stationary ECG Study [facility] - ED Test Date: 2017-01-19 Pat Name: XIOMY BOYD Department: Room: [place] [address] Gender: M Calciner Feeder: heber : 1950 Requested By: DENIZ Espinosa Order Number: [id number] Reading MD: Carmen Gan Measurements Intervals [place] Rate: 80 P: 67 ID: [id number] QRS: 21 QRSD: 93 T: 0 QT: 400 QTc: 462 Interpretive Statements SINUS RHYTHM NONSPECIFIC T-WAVE ABNORMALITY DECREASED RATE 12/04/12 Electronically Signed On 01-19-2017 19:32:29 EDT by Carmen Gan
[2017-01-19 20:00] VITALS: PULSE 87
[2017-01-19] MEDS: LEVEMIR (INSULIN DETEMIR) 1 UNITS/0.01ML SC SCH (20:26)
[2017-01-19 21:33] VITALS: BP 137/72
[2017-01-20] VITALS (8 sets, daily range): BP systolic 126–178; BP diastolic 62–80; PULSE 83–96
[2017-01-20] MEDS: ATORVASTATIN 20 MG TAB PO SCH (05:22)
[2017-01-20] MEDS: SUCRALFATE 1 GM TAB PO SCH ×4 (05:23→20:38)
[2017-01-20] MEDS: SERTRALINE HCL 50 MG TAB PO SCH (05:23)
[2017-01-20] MEDS: PANTOPRAZOLE 40MG TAB (PROTONIX) PO SCH ×2 (05:23→20:38)
[2017-01-20] MEDS: LEVEMIR (INSULIN DETEMIR) 1 UNITS/0.01ML SC SCH ×2 (05:23→20:39)
[2017-01-20] MEDS: CINACALCET 30 MG TAB (SENSIPAR) PO SCH (05:26)
[2017-01-20] MEDS: HumaLOG INSULIN (NovoLOG) PER UNIT SC SCH ×4 (05:30→20:39)
[2017-01-20 05:36] LABS: MEAN CORPUSCULAR HEMOGLOBIN 30.5 pg (27.0-33.0); MEAN CORPUSCULAR HGB CONC 32.8 g/dl (32.0-36.5); RED CELL DISTRIBUTION WIDTH 14.5 % (11.5-14.5); WHITE BLOOD COUNT 7.6 K/mm3 (4.0-10.0)
[2017-01-20 06:01] LABS: CALCIUM LEVEL 8.4 MG/DL (8.8-10.2); CREATININE FOR GFR 4.15 MG/DL (0.70-1.30); GLOMERULAR FILTRATION RATE 15.5 (>49); POTASSIUM SERUM 4.1 MEQ/L (3.5-5.1)
[2017-01-20] MEDS ORDERED: PANTOPRAZOLE 40MG TAB (PROTONIX) PO SCH (09:00)
[2017-01-20 10:12] LABS: VITAMIN B12 LEVEL 1135 PG/ML (247-911)
[2017-01-20 10:13] LABS: FOLATE > 24.0 NG/ML (>5.4)
--- NOTE | 2017-01-20 12:17 | IPN ---
DATE: 01/20/2017 SUBJECTIVE: Patient is seen and examined in the room today. Patient states his difficulty breathing has been improving. Patient still have significant bilateral lower extremity swelling but he feels to swelling is better. Patient has hemodialysis yesterday with 2.5 liter fluid removal. Patient tolerated dialysis well. No complaints. OBJECTIVE: Vital signs: Temperature is 98.6, pulse 85, respiration 20, blood pressure 129/62, pulse ox 98% on room air. General: No sign of acute distress. Alert and oriented times three. HEENT: Normocephalic, atraumatic. Extraocular motor grossly intact. Cardiovascular: Positive S1, S2. Regular rate. Lungs: Positive for fine crackles bilaterally. No wheezes. Abdomen: Soft, nontender, nondistended. Bowel sounds present. No rebound, no guarding. Extremities: 2+ pedal edema bilaterally especially below the knee. No cyanosis. LABORATORY DATA: WBC is 7.6, hemoglobin 8.9, hematocrit 27.2, platelet count 384. Sodium 138, potassium 4.1, chloride 99, carbon dioxide 31, BUN 19, creatinine 4.15, glomerular filtration rate 15.5, fasting glucose is 76, A1c 6, calcium is 8.4. ASSESSMENT AND PLAN: 1. Fluid overload. Patient had hemodialysis yesterday, 2.5 liters was removed from patient. Patient is scheduled for repeat hemodialysis today again. During yesterday's dialysis and today's dialysis, patient will be supplemented with one packed red blood cell units each. Per the medical record, patient does not have any echocardiogram performed in the past and patient never had a diagnosis of congestive heart failure. Echocardiogram was performed and we are awaiting for the results. 2. End stage renal disease on hemodialysis. Patient's regular dialysis days are Friday, Friday, Friday. Patient had dialysis on Friday and patient will have repeat hemodialysis today. We will appreciate nephrology's assistance. 3. Symptomatic anemia. During admission, patient was found to have hemoglobin of 7.9. One packed red blood cell unit was given during dialysis yesterday. We will plan to give patient another unit of pack red blood cell transfusion today. Patient's hemoglobin and hematocrit is improving. No sign of active bleeding. However, patient does have a history of gastrointestinal bleed. Patient had a recent hospitalization for GI bleed. Patient was admitted from 01/12 to 01/14/2017. Patient received two packed red blood cell transfusion at the time. EGD was performed. Patient was showing non-bleeding gastric ulcers. No colonoscopy was performed at that time. I have ordered stool hemoccult, however, no result is available yet. 4. Insulin dependent diabetes. Patient has a good hemoglobin A1c. Continue with Levemir twice daily, with sliding scale. Patient has diabetic neuropathy, retinopathy and nephropathy. Patient is on gabapentin. 5. History of hyperparathyroidism. 6. Hypotension. Refer Lasix dosage to nephrology team. 7. Dyslipidemia, on atorvastatin. 8. Obstructive sleep apnea (JACKELYN). Patient could not tolerate the CPAP. Patient on obstructive sleep apnea protocol. 9. Depression. Patient has a history of [facility] admission. Patient is currently on Sertraline 50 mg by mouth daily. 10. History of gastric bypass surgery in 2009. 11. Hypertension. Blood pressure in satisfactory range. 12. Dyslipidemia. Patient is on atorvastatin 40 mg by mouth daily. 13. Deep venous thrombosis (DVT) prophylaxis due to history of gastrointestinal (GI) bleed. Patient is on thromboembolic deterrent stockings (TEDS) and Sequential compression devices (SCD).
--- NOTE | 2017-01-20 19:39 | ECHO ---
DATE OF PROCEDURE: 01/20/2017 REFERRING PHYSICIAN: Dr. Cordova INDICATION: Dyspnea. Patient has a history of gastric bypass surgery and a known pleural effusion. HEIGHT: 68 inches WEIGHT: 206 pounds DIMENSIONS: IVS: 1.3 LV: 5.0 LVPW: 1.3 LA: 4.7 Aorta: 3.4 Ascending aorta 3.3. LV systolic 3.3. FINDINGS: The study is of acceptable technical quality. Of note the patient is in sinus rhythm with ventricular rate approximately 90 beats per minute. Left ventricle is of normal size and has overall preserved LV systolic function. I estimate left ventricle ejection fraction (LVEF) around 55 to 60%. Mild left ventricular hypertrophy is noted. The right ventricle is not dilated. Aortic valve is sclerotic and there is thickening of cusps and some limitation of mobility, by 2D imaging I assume about mild aortic stenosis. There are degenerative abnormalities of mitral valve with mitral annular calcifications but leaflets are fairly mobile. Tricuspid and pulmonic valves appear normal. No pericardial effusion is noted. Left pleural effusion and ascites are noted. Inferior vena cava is dilated and there is minimal collapse with respiration indicative of likely very high central venous pressure aortic root appears normal. Aortic arch was not well seen. Abdominal aorta appears normal. Doppler interrogation of aortic valve reveals no insufficiency and mild stenosis (mean gradient 24 mmHg, calculated SHEKHAR 1.7 cm2). There is mild mitral insufficiency and mild tricuspid insufficiency. Calculated pulmonary artery pressure is at least in low 50's which would correspond to moderate pulmonary hypertension but I can not rule out that it is even higher. Pulmonic valve us functionally competent. Mitral inflow pattern and tissue Doppler imaging of mitral annulus reveal grade 2 diastolic dysfunction. There is normal mitral inflow pattern and tissue Doppler velocities are 7.9 and 8.0 cm per second for septal and lateral mitral annulus respectively. CONCLUSIONS: 1. The study is of acceptable technical quality. 2. Normal left ventricle (LV) size with grossly normal LV systolic function and grade 2 diastolic dysfunction. Mild left ventricular hypertrophy. 3. Mild aortic stenosis. 4. Mild mitral and tricuspid insufficiency. 5. High central venous pressure. 6. At least moderate pulmonary hypertension. 7. Ascites and left pleural effusions are noted. COMMENT: Subacute bacterial endocarditis (SBE) prophylaxis is not recommended. [facility]
--- NOTE | 2017-01-20 22:06 | IPN ---
DATE: 01/20/2017 SUBJECTIVE: The patient was seen and examined at the bedside today morning during hemodialysis. Patient was dialyzed yesterday as well. He tolerated the hemodialysis procedure well. He was given one unit of packed red blood cell (PRBC) transfusion yesterday. He reports that his shortness of breath is significantly better. He was able to lay down flat last night and sleep last night as well. Today, patient was getting his regular hemodialysis as per Friday, Friday, Friday schedule. Patient does not have any active complaints at this time. REVIEW OF SYSTEMS: Patient denies any fevers, chills, rigors, headache, nausea, vomiting, chest pain, shortness of breath, pain in abdomen, constipation, or diarrhea. The rest of the review of systems is negative. OBJECTIVE: VITAL SIGNS: Temperature 98 degrees Fahrenheit, blood pressure 129/62, pulse 85, respiratory rate 18, saturating 98% on room air. INTAKE/OUTPUT: Ultrafiltration with hemodialysis is 2.5 liters yesterday, it was 3 liters today, and weight in the bed scale is 91.3 kg. PHYSICAL EXAMINATION: GENERAL: The patient is awake, alert, oriented times three, laying in bed getting hemodialysis done. No apparent distress at this time. HEAD and NECK EXAM: Extraocular muscles intact. Pupils equally round and reactive to light. Neck is supple. There is no jugular venous distention (JVD). CARDIOVASCULAR: S1, S2, regular rate. No murmur, rub, or gallop. RESPIRATORY: Chest is clear to auscultation bilaterally. Patient has slightly decreased breath sounds and decreased vocal resonance at the bases at this time. ABDOMEN: Soft, positive bowel sounds, nontender. No asictes. No organomegaly. EXTREMITIES: No clubbing or cyanosis. Pulses are 2+. Patient has 2+ pitting edema of the bilateral lower extremities. CENTRAL NERVOUS SYSTEM (WHEELCHAIR VAN DRIVER): No focal neurological deficit. Power is 5/5 in all extremities. PSYCHIATRIC: Normal mood and affect. ARTERIOVENOUS (AV) ACCESS: Patient has a left upper arm AV fistula which is being used for dialysis at this time. LABORATORY REVIEW: CBC showed WBC 7.6, hemoglobin 8.9, platelets 384. BMP showed sodium 137, potassium 4.1, chloride 99, bicarbonate 31, BUN 19, creatinine 4.15, calcium 8.4. CURRENT MEDICATIONS: The patient's current medications were all reviewed by me. His Protonix has been changed to 40 mg by mouth twice a day. There is no other change in the medication today as compared with yesterday. ASSESSMENT: 66-year-old male with past medical history of end-stage renal disease on hemodialysis recently admitted for gastrointestinal (GI) bleed about a week ago. Patient was admitted again yesterday with shortness of breath secondary to fluid overload and symptomatic anemia. PLAN: 1. Acute respiratory distress secondary to fluid overload. Patient was dialyzed yesterday, 2.5 liters of fluid was removed. Patient is symptomatically significantly better. We should do another ultrafiltration (UF) of 3 liters as tolerated by his blood pressure today. 2. Symptomatic anemia. Patient got one unit of packed red blood cell (PRBC) transfusion yesterday. His fecal occult blood testing is pending. I will give him another dose of one unit of packed red blood cell (PRBC) transfusion again during hemodialysis today. Patient was also given a dose of Aranesp 200 mcg IV with hemodialysis yesterday. 3. Lower extremity edema. We are trying to manage the edema with hemodialysis and ultrafiltration. I have started the patient on Lasix, but patient does not make any significant urine so we shall have to manage his volume status with dialysis only.
[2017-01-21 06:00] VITALS: BP 127/68
[2017-01-21 07:16] LABS: MEAN CORPUSCULAR HEMOGLOBIN 30.1 pg (27.0-33.0); MEAN CORPUSCULAR HGB CONC 32.2 g/dl (32.0-36.5); MEAN CORPUSCULAR VOLUME 93.3 fl (80.0-96.0); RED CELL DISTRIBUTION WIDTH 14.4 % (11.5-14.5); WHITE BLOOD COUNT 7.5 K/mm3 (4.0-10.0)
[2017-01-21 07:28] LABS: CALCIUM LEVEL 8.6 MG/DL (8.8-10.2); CREATININE FOR GFR 3.61 MG/DL (0.70-1.30); GLOMERULAR FILTRATION RATE 18.1 (>49); POTASSIUM SERUM 4.2 MEQ/L (3.5-5.1)
[2017-01-21] MEDS: HumaLOG INSULIN (NovoLOG) PER UNIT SC SCH (07:30)
[2017-01-21] MEDS: LEVEMIR (INSULIN DETEMIR) 1 UNITS/0.01ML SC SCH (08:36)
[2017-01-21] MEDS: SUCRALFATE 1 GM TAB PO SCH (08:37)
[2017-01-21] MEDS: ATORVASTATIN 20 MG TAB PO SCH (08:37)
[2017-01-21] MEDS: SERTRALINE HCL 50 MG TAB PO SCH (08:37)
[2017-01-21] MEDS: PANTOPRAZOLE 40MG TAB (PROTONIX) PO SCH (08:37)
[2017-01-21] MEDS: CINACALCET 30 MG TAB (SENSIPAR) PO SCH (08:44)
--- NOTE | 2017-01-21 11:18 | IPN ---
DATE: 01/21/2017 SUBJECTIVE: The patient was seen and examined at the bedside today in the morning. The patient got a second session of hemodialysis done yesterday. He feels much better today. His hemoglobin is stable. He says his shortness of breath is significantly improved and he wants to go home today. REVIEW OF SYSTEMS: The patient denies any fevers, chills, rigors, headache, nausea, vomiting, chest pain, shortness of breath, pain in abdomen, constipation, diarrhea, hematochezia or melena. The rest of the review of systems is negative. OBJECTIVE: VITAL SIGNS: Temperature 97.2 degrees Fahrenheit, blood pressure 127/68, pulse 86, respiratory rate 14, saturating 99% on room air. INTAKE/OUTPUT: Urine output is not recorded. Ultrafiltration with hemodialysis was 3 liters yesterday. Weight in the bed scale is 87.4 kg today. PHYSICAL EXAMINATION: GENERAL: The patient is awake, alert, oriented times three, sitting on the sofa in no apparent distress. HEAD and NECK EXAM: Extraocular muscles intact. Pupils equally round and reactive to light. Neck is supple. There is no jugular venous distention (JVD). CARDIOVASCULAR: S1, S2, regular rate. No murmur, rub, or gallop. RESPIRATORY: Chest is clear to auscultation bilaterally. Bilateral equal air entry. No rales or rhonchi. ABDOMEN: Soft, positive bowel sounds, nontender. No ascites. No organomegaly. EXTREMITIES: No clubbing or cyanosis. Pulses are 2+. Patient has 2+ pitting edema of the bilateral lower extremities. CENTRAL NERVOUS SYSTEM (VP RHEUMATOLOGY): No focal neurological deficit. Power is 5/5 in all extremities. LABORATORY REVIEW: CBC showed WBC 7.5, hemoglobin 9.9, platelets 353. BMP showed sodium 135, potassium 4.2, chloride 100, bicarbonate 30, BUN 16, creatinine 3.6, calcium 8.6. CURRENT MEDICATIONS: The patient's medications were all reviewed by me. There is no change in the medications today as compared with yesterday. ASSESSMENT: 66-year-old male with past medical history of end-stage renal disease on hemodialysis recently admitted for symptomatic anemia and shortness of breath secondary to fluid overload. PLAN: 1. Shortness of breath. The patient's shortness of breath is significantly better. He was dialyzed back to back for two days. Next hemodialysis session is tomorrow. There is no urgent need of hemodialysis today. 2. Symptomatic anemia. The patient got two units of packed red blood cell (PRBC) transfusions during this admission. Hemoglobin is 9.9 now, which is close to the target. The rest of the anemia management is as per outpatient. 3. End stage renal disease on hemodialysis. The patient's regular dialysis days are Friday, Friday and Friday. Next hemodialysis session will be tomorrow as outpatient. DISCHARGE PLANNING: It is okay to discharge the patient from a nephrology standpoint. The rest of the fluid and anemia management will be done as an outpatient.
--- NOTE | 2017-01-21 22:51 | DSES ---
DATE OF ADMISSION: 01/19/2017 DATE OF DISCHARGE: 01/21/2017 PRIMARY CARE PROVIDER: Dr. Gabriela Argueta, Resident Clinic HIGH REACH OPERATOR: Poonam Guerrero MD PRIMARY DISCHARGE DIAGNOSES: 1. Fluid overload secondary to end-stage renal disease on hemodialysis. 2. End-stage renal disease secondary to diabetic nephropathy. 3. Hypertension. 4. Secondary hyperparathyroidism. 5. Obstructive sleep apnea, not on continuous positive airway pressure (CPAP). 6. Grade 2 diastolic dysfunction. 7. Mild aortic stenosis. 8. Depression. 9. Hyperlipidemia. 10. History of left upper arm arteriovenous (AV) fistula. 11. History of gastric bypass surgery 2009. DISCHARGE MEDICATIONS: - atorvastatin 40 mg daily - Sensipar 30 mg daily - Dialyvite 3000 3 mg daily - gabapentin 100 as needed - Lantus insulin 8-14 units twice a day - Protonix 40 mg twice a day - sertraline 50 mg daily - sevelamer one packet with meals - Carafate 1 gram before food and nightly Patient is currently not on Lasix as he is unresponsive. Fluid management per his commercial hvac technician and diuresis to be done via hemodialysis only. Patient is not on an angiotensin-converting enzyme (JOSE D) inhibitor secondary to end-stage renal disease on maintenance hemodialysis. HOSPITAL COURSE: This is a 66-year-old male with history of end-stage renal disease secondary to type 2 diabetes with diabetic nephropathy and retinopathy, insulin-dependent, hypertension, dyslipidemia, obstructive sleep apnea (JACKELYN), not on CPAP, and depression, presented on 01/19/2017, with worsening shortness of breath, fatigue, and difficulty with activities of daily living (ADLs). Patient was recently hospitalized from 01/12/2017 to 01/14/2017, for symptomatic anemia secondary to gastric ulcers. No colonoscopy was performed. He was found to be in fluid overload. Hemoglobin was 7.5, hematocrit of 23, with symptomatic anemia. The patient did receive red blood cell transfusion, a total of two units, with improvement in hemoglobin and maintenance of hemoglobin at 9.9 and hematocrit of 30, with no recurrent bleeding. Patient underwent hemodialysis as he was not responsive to Lasix. Chest x-ray showed bilateral pleural effusions. Patient's echocardiogram showed normal systolic function, grade 2 diastolic dysfunction with ejection fraction (EF) of 60%, mild aortic stenosis, and at least moderate pulmonary hypertension with mild mitral and tricuspid insufficiency. His admission weight was 93.44 kg, discharge weight of 87.4 kg. The patient was instructed on no added salt diet, daily weights, and to call his commercial hvac technician and to continue on maintenance hemodialysis as outpatient. He had symptomatic improvement, ambulated well, was on room air, 99% on discharge. LABORATORY DATA ON DISCHARGE: White count 7.5, hemoglobin 9.9, hematocrit 30, platelet count 353, sodium 135, potassium 4.2, chloride 100, bicarbonate 30, BUN 16, creatinine 3.6, glucose of 99, BNP of 1490. IMAGING STUDY: Chest x-ray shows bilateral pleural effusions and cardiomegaly.
== END 2017-01-21 12:00 | disposition home health service (06) | DRG 291 ==
LOC: M ED 08:15 → M ED INP 10:26 → M PCU 15:12 → M MS5PR 01-20 12:42
PROVIDERS: ADMIT Internal Medicine; ATTEND General Practice
PROC: 30233N1 Transfusion of Nonautologous Red Blood Cells into Peripheral Vein, Percutaneous Approach (ICD-10-PCS; principal; 2017-01-19)
DX: I50.33 Acute on chronic diastolic (congestive) heart failure (principal); N18.6 End stage renal disease; N25.81 Secondary hyperparathyroidism of renal origin; K90.9 Intestinal malabsorption, unspecified; E78.5 Hyperlipidemia, unspecified; F32.9 Major depressive disorder, single episode, unspecified; E11.21 Type 2 diabetes mellitus with diabetic nephropathy; G47.33 Obstructive sleep apnea (adult) (pediatric); I35.0 Nonrheumatic aortic (valve) stenosis; Z79.899 Other long term (current) drug therapy; E11.319 Type 2 diabetes mellitus with unspecified diabetic retinopathy without macular edema; E87.70 Fluid overload, unspecified; Z88.8 Allergy status to other drugs, medicaments and biological substances; E11.40 Type 2 diabetes mellitus with diabetic neuropathy, unspecified; Z79.4 Long term (current) use of insulin; Z91.19 Patient's noncompliance with other medical treatment and regimen; D64.9 Anemia, unspecified; Z98.84 Bariatric surgery status

== ENCOUNTER 2017-04-02 10:26 | Inpatient (IN) | payer MEDICARE ==
[~2017-04-02] VITALS: Ht 172.7 cm; Wt 81.8 kg
[~2017-04-02 10:26] MED LIST changes: -ATOR40TA PO; +ATOR40TA75 PO; -FURO1TAB15 PO; +FURO80TA2 PO; +SUCR1TAB56 PO
[2017-04-02] MEDS ORDERED: PANTOPRAZOLE 40MG INJ (PROTONIX) (C9113) IV ONE (11:15)
[2017-04-02] MEDS ORDERED: ONDANSETRON 4MG/2ML VIAL (J2405) IV ONE (11:15)
[2017-04-02] MEDS ORDERED: NS 1,000 ML IV ONE (11:15)
[2017-04-02 12:01] LABS: ALBUMIN 2.9 GM/DL (3.2-5.2); ALBUMIN/GLOBULIN RATIO 0.83 (1.00-1.93); ALKALINE PHOSPHATASE 71 U/L (45-117); ALT/SGPT 21 U/L (12-78); AMYLASE 54 U/L (25-115); ANION GAP 5 MEQ/L (8-16); AST/SGOT 12 U/L (15-37); BILIRUBIN,DIRECT 0.2 MG/DL (0.0-0.2); BILIRUBIN,TOTAL 0.5 MG/DL (0.2-1.0); BLOOD UREA NITROGEN 65 MG/DL (7-18); CALCIUM LEVEL 8.8 MG/DL (8.8-10.2); CARBON DIOXIDE LEVEL 33 MEQ/L (21-32); CHLORIDE LEVEL 97 MEQ/L (98-107); CREATININE FOR GFR 5.45 MG/DL (0.70-1.30); GLOMERULAR FILTRATION RATE 11.3 (>49); GLUCOSE, FASTING 130 MG/DL (80-110); SODIUM LEVEL 135 MEQ/L (136-145); TOTAL PROTEIN 6.4 GM/DL (6.4-8.2)
[2017-04-02 12:03] LABS: POTASSIUM SERUM 5.2 MEQ/L (3.5-5.1)
[2017-04-02 12:06] LABS: BASO % 0.8 % (0.0-1.0); EOS # 0.1 K/mm3 (0.0-0.50); EOS % 1.6 % (0.0-3.0); LARGE UNSTAINED CELL # 0.1 K/mm3 (0.0-0.4); LARGE UNSTAINED CELL % 2.8 % (0.0-4.0); LYMPH # 1.3 K/mm3 (1.5-4.5); MEAN CORPUSCULAR HEMOGLOBIN 28.9 pg (27.0-33.0); MEAN CORPUSCULAR VOLUME 90.1 fl (80.0-96.0); MONO # 0.3 K/mm3 (0.0-0.8); MONO % 6.5 % (0.0-5.0); NEUTROPHILS # 2.8 K/mm3 (1.8-7.7); NEUTROPHILS % 62.2 % (36.0-66.0); PLATELET COUNT, AUTOMATED 208 k/mm3 (150-450); RED CELL DISTRIBUTION WIDTH 15.8 % (11.5-14.5); WHITE BLOOD COUNT 4.5 K/mm3 (4.0-10.0)
[2017-04-02] MEDS ORDERED: GLUCOSE 4 GM CHEW TABLET PO PRN (12:45)
[2017-04-02] MEDS ORDERED: GLUCAGON FOR INJ 1 MG VIAL (J1610) SC PRN (12:45)
[2017-04-02] MEDS ORDERED: ONDANSETRON 4MG/2ML VIAL (J2405) IV PRN (12:45)
[2017-04-02] MEDS ORDERED: DEXTROSE 50% 50 ML SYRINGE IV PRN (12:45)
[2017-04-02] MEDS ORDERED: ONDANSETRON 4 MG TAB (S0181) PO PRN (12:45)
[2017-04-02] MEDS ORDERED: ACETAMINOPHEN TAB 650MG DOSE (2X325MG) PO PRN (12:45)
--- NOTE | 2017-04-02 12:45 | REP ---
CT ABDOMEN AND PELVIS WITHOUT IV CONTRAST: CT abdomen and pelvis is performed without oral or IV contrast. Sagittal and coronal reconstruction images are performed. There are no prior studies for comparison. Visualized lung bases demonstrate mild to moderate pleural effusions, right greater than left with some minimal adjacent atelectasis/infiltrate. Liver, spleen, adrenals, pancreas are grossly unremarkable. There are extensive vascular calcifications. There is a small cyst in the lower pole of the right kidney. No hydronephrosis. There is no abdominal aortic aneurysm. No definite adenopathy is seen. There is no free air or free fluid. No gross bowel wall thickening is seen. The appendix appears normal. No definite pelvic mass is seen. The urinary bladder is grossly unremarkable. There are degenerative changes of the spine. IMPRESSION: Mild to moderate bilateral pleural effusions with minor adjacent atelectasis/infiltrate. No definite acute abnormality is seen in the abdomen or pelvis although the study is limited without IV contrast. Signed by Saul Aquino MD 04/02/2017 04:43 P
--- NOTE | 2017-04-02 14:12 | HPEPDOC ---
Medical History and Physical Date of Admission Apr 02, 2017 at 12:43 History and Physical HISTORY AND PHYSICAL Date of admission: 04/02/2017 PCP: Dr. Argueta at the resident clinic Chief complaint: Bloody bowel movements HPI: 66y/o male with end-stage renal disease on hemodialysis, diabetes mellitus type 2, diabetic neuropathy, diabetic retinopathy, diabetic nephropathy, hypertension, hyperlipidemia, history of JACKELYN, depression, obesity s/p gastric bypass, known gastric ulcers, who presented with 7 episodes of bloody BMs. He states that these began at 9 AM this morning. After arriving at the ER, he says he has had one more bowel movement that was bloody. He states that prior to 9 AM this morning he was feeling well. He denies any rectal pain or abdominal pain. He also denies any nausea, vomiting, or dizziness. He describes the blood in his stool as clots. He denies being on any anticoagulation, but states that he previously was on aspirin, but Dr. Waters instructed him to stop this several months ago. The patient reports that his last colonoscopy was greater than 6 years ago. He has had a recent EGD performed at our facility by Dr. Peters in January of this year. At that time, it showed 2 nonbleeding gastric ulcers at the anastomoses. At the time, it was recommended that the patient use Protonix twice a day for 3 months, but on his home medication list, he does not report that this is something he is still taking. Past medical history: end-stage renal disease on hemodialysis, diabetes mellitus type 2, diabetic neuropathy, diabetic retinopathy, diabetic nephropathy , hypertension, hyperlipidemia, history of JACKELYN, depression, known gastric ulcers Past surgical history: Gastric bypass in 2009, bilateral shoulder arthroplasty Family history: Congenital heart disease, diabetes mellitus type 2, coronary artery disease, brain aneurysm Social history: The patient currently lives with his . He states that he has a history of heavy drinking, but has not had a drink in several years. He denies any history of drug or tobacco use. Allergies: Metformin, rosiglitazone Review of systems: General: Negative for fever and chills Eyes: Negative for vision changes and ocular discharge ENT: Negative for sore throat and nose bleed Cardiovascular: Negative for chest pain and palpitations Respiratory: Negative for cough. Positive for shortness of breath GI: Negative for nausea, vomiting, abdominal pain, rectal pain. Positive for bloody bowel movements with clots Musculoskeletal: Negative for neck and back pain Skin: Negative for rash Neuro: Negative for headache, dizziness, numbness, tingling Psych: Positive for depression, negative for suicidal ideation Endocrine: The patient states that he still urinates, and he denies any changes in his urinary habits : Negative for dysuria Heme: Positive for rectal bleeding Home meds: See below Physical exam: Vital signs: Vital Sign - Last 24 Hours 04/02/17 04/02/17 04/02/17 10:27 11:00 11:46 Temp 98.6 97.6 Pulse 80 80 Resp 16 17 B/P (MAP) 160/72 (101) 136/65 (88) Pulse Ox 100 91 O2 Delivery Room Air Gen.: awake, alert, no acute distress Eyes: Extraocular movements intact, normal sclera ENT: Moist mucous membranes Cardiovascular: RRR, no murmurs rubs or gallops Lungs: clear to auscultation bilaterally, no rales, rhonchi, or wheeze Abdomen: Soft, NT/ND, normal BS, small reducible abdominal wall hernia located along his prior surgical incision Musculoskeletal: normal range of motion Extremities: 2+ peripheral edema Neuro: alert and oriented 3, normal speech, no focal deficits Psych: Normal mood with congruent affect Labs and radiology: See below Hemoglobin 9.6, baseline hemoglobin appears to be in the nines Wet read of the CT abdomen and pelvis shows no acute findings, but final read by radiologist is still pending Assessment and plan: 66y/o male with end-stage renal disease on hemodialysis, diabetes mellitus type 2, diabetic neuropathy, diabetic retinopathy, diabetic nephropathy, hypertension , hyperlipidemia, history of JACKELYN, depression, obesity s/p gastric bypass, known gastric ulcers, who presented with 7 episodes of bloody BMs and is admitted with lower GI bleed. 1. Lower GI bleed in setting of known gastric ulcers: Patient is currently hemodynamically stable and his hemoglobin is at his baseline in the nines. We' ll continue to monitor serial H&H's, and the patient has agreed to blood transfusion if his clinical situation should change and he needs that. Transfusion consent was completed by myself and his emergency department nurse Sandy, and was placed on his chart. I have spoken with Dr. Somers of general surgery, who has agreed to evaluate the patient for potential scope. At this time he will be nothing by mouth with IV PPI given twice a day. Given that he is on hemodialysis, we will hold off on any fluids at this time, and defer any fluids to nephrology. We will continue him on his home Carafate. 2. End-stage renal disease on hemodialysis: We appreciate the help of Dr. Yocasta Waters in managing his dialysis. 3. Diabetes mellitus type 2: Hold home Lantus while nothing by mouth. Continue sliding scale insulin while in house. 4. History of JACKELYN: The patient states that since his last sleep study he has lost over 100 pounds. He denies using the CPAP at this time. He will need further evaluation as an outpatient with a repeat sleep study given history of dramatic change in weight. 5. Depression: Continue home Zoloft. DVT prophylaxis: SCDs Dispo: admit as an inpatient to the service of Dr. Vincent CODE STATUS: Full code Vital Signs Vital Signs Date Time Temp Pulse Resp B/P (MAP) Pulse Ox O2 Delivery O2 Flow Rate FiO2 04/02/17 11:46 97.6 80 17 136/65 (88) 91 04/02/17 10:27 Room Air Laboratory Data Labs 24H Laboratory Tests 2 04/02/17 10:52: White Blood Count 4.5, Red Blood Count 3.33L, Hemoglobin 9.6L, Hematocrit 30.0L , Mean Corpuscular Volume 90.1, Mean Corpuscular Hemoglobin 28.9, Mean Corpuscular Hemoglobin Concent 32.0, Red Cell Distribution Width 15.8H, Platelet Count 208, Neutrophils (%) (Auto) 62.2, Lymphocytes (%) (Auto) 26.0, Monocytes (%) (Auto) 6.5H, Eosinophils (%) (Auto) 1.6, Basophils (%) (Auto) 0.8 , Neutrophils # (Auto) 2.8, Lymphocytes # (Auto) 1.3L, Monocytes # (Auto) 0.3, Eosinophils # (Auto) 0.1, Basophils # (Auto) 0.0, Large Unclassified Cells % 2.8 , Large Unclassified Cells # 0.1, Anion Gap 5L, Glomerular Filtration Rate 11.3L , Lactic Acid Level 0.8, Calcium Level 8.8, Aspartate Amino Transf (AST/SGOT) 12L, Alanine Aminotransferase (ALT/SGPT) 21, Alkaline Phosphatase 71, Total Bilirubin 0.5, Direct Bilirubin 0.2, Total Protein 6.4, Albumin 2.9L, Albumin/ Globulin Ratio 0.83L, Amylase Level 54, Lipase 226 CBC/BMP Laboratory Tests 04/02/17 10:52 Red Blood Count 3.33 L, Mean Corpuscular Volume 90.1, Mean Corpuscular Hemoglobin 28.9, Mean Corpuscular Hemoglobin Concent 32.0, Red Cell Distribution Width 15.8 H, Neutrophils (%) (Auto) 62.2, Lymphocytes (%) (Auto) 26.0, Monocytes (%) (Auto) 6.5 H, Eosinophils (%) (Auto) 1.6, Basophils (%) ( Auto) 0.8, Neutrophils # (Auto) 2.8, Lymphocytes # (Auto) 1.3 L, Monocytes # ( Auto) 0.3, Eosinophils # (Auto) 0.1, Basophils # (Auto) 0.0 Home Medications Scheduled (Sertraline HCl) 50 Mg Tab, 50 MG PO DAILY (Dialyvite 3000 3 mg) 1 Tab Tab, 1 TAB PO DAILY Insulin Glargine (Lantus) 100 Unit/Ml Inj, 8-12 UNIT SC BID Sucralfate (Sucralfate) 1 Gm Tab, 1 GM PO ACHS Allergies Coded Allergies: Metformin (Verified Adverse Reaction, Severe, Heart Failure, 12/04/12) Rosiglitazone (Verified Adverse Reaction, Severe, Heart Failure, 12/04/12) CAROLE ESTRADA Apr 02, 2017 14:12
[2017-04-02 17:30] VITALS: BP 145/65
[2017-04-02] MEDS: SUCRALFATE 1 GM TAB PO SCH ×2 (17:30→21:00)
[2017-04-02] MEDS ORDERED: GOLYTELY SOLN 4000 ML BTL PO ONE (20:00)
[2017-04-02 20:10] VITALS: BP 171/78
[2017-04-02] MEDS: PANTOPRAZOLE 40MG INJ (PROTONIX) (C9113) IV SCH (20:59)
[2017-04-03 00:23] VITALS: BP 157/78
[2017-04-03 05:14] VITALS: BP 148/73
[2017-04-03 05:58] LABS: BASO % 0.8 % (0.0-1.0); EOS # 0.1 K/mm3 (0.0-0.50); EOS % 2.2 % (0.0-3.0); LARGE UNSTAINED CELL # 0.2 K/mm3 (0.0-0.4); LARGE UNSTAINED CELL % 3.5 % (0.0-4.0); LYMPH # 1.5 K/mm3 (1.5-4.5); MEAN CORPUSCULAR HEMOGLOBIN 28.7 pg (27.0-33.0); MEAN CORPUSCULAR HGB CONC 32.7 g/dl (32.0-36.5); MEAN CORPUSCULAR VOLUME 87.9 fl (80.0-96.0); MONO # 0.3 K/mm3 (0.0-0.8); MONO % 6.7 % (0.0-5.0); NEUTROPHILS # 2.7 K/mm3 (1.8-7.7); PLATELET COUNT, AUTOMATED 193 k/mm3 (150-450); WHITE BLOOD COUNT 4.7 K/mm3 (4.0-10.0)
[2017-04-03] MEDS ORDERED: GOLYTELY SOLN 4000 ML BTL PO ONE (06:00)
[2017-04-03 06:30] LABS: ANION GAP 9 MEQ/L (8-16); BLOOD UREA NITROGEN 43 MG/DL (7-18); CALCIUM LEVEL 8.8 MG/DL (8.8-10.2); CARBON DIOXIDE LEVEL 28 MEQ/L (21-32); CHLORIDE LEVEL 100 MEQ/L (98-107); GLOMERULAR FILTRATION RATE 16.6 (>49); GLUCOSE, FASTING 115 MG/DL (80-110); MAGNESIUM LEVEL 2.6 MG/DL (1.8-2.4); POTASSIUM SERUM 4.6 MEQ/L (3.5-5.1); SODIUM LEVEL 137 MEQ/L (136-145)
[2017-04-03 08:00] VITALS: BP 158/70
[2017-04-03] MEDS: SERTRALINE HCL 50 MG TAB PO SCH (08:05)
[2017-04-03] MEDS: PANTOPRAZOLE 40MG INJ (PROTONIX) (C9113) IV SCH ×2 (08:05→21:56)
[2017-04-03] MEDS: SUCRALFATE 1 GM TAB PO SCH ×4 (08:05→21:56)
--- NOTE | 2017-04-03 09:50 | CR.PDOC ---
General Surgery Consultation Date of Consultation 04/03/17 History and Physical CONSULT REPORT FOR: Shani Hogan REASON FOR CONSULTATION: GI bleeding HISTORY OF PRESENT ILLNESS: Remaining asked to follow along with the patient during this hospitalization as he is being admitted for new onset of passage of bloody stools, about 8 times today. Patient describes loose, dark maroon, with some fresh blood and clots since this morning. He was apparently well prior to this. Have previously met him back in January when he was admitted for os is crevice melena. I did an upper GI endoscopy. At that time the bleeding has stopped. He was found to have some prepyloric ulcers with stigmata of bleed. He has been obtained on Carafate. His aspirin has been on hold since then. PAST MEDICAL HISTORY: As noted in the HPI and my previous consult PAST SURGICAL HISTORY: INCLUDES: See HPI and my previous consult PREVIOUS ANESTHESIA REACTIONS: None ALLERGIES: Please see below. HOME MEDICATIONS: Please see below. REVIEW OF SYSTEMS: GENERAL: Denies chills, denies weight gain or significant weight loss HEENT: Denies blurred vision and double vision. Denies ear symptoms. Denies hoarseness. NECK: Denies any neck pain CARDIOVASCULAR: Denies chest pain and palpitations. MUSCULOSKELETAL: Denies arthralgias, back pain and thrombophlebitis. SKIN: Denies rash. NEUROLOGIC: Denies headache, stroke and transient ischemic attack. PSYCHIATRIC: Denies anxiety and depression. ENDOCRINE: Denies thyroid disease. HEMATOLOGY/ONCOLOGY: Denies bleeding or clotting disorder. HEART: Denies any chest pains, palpitations, paroxysmal dyspnea, orthopnea. PULMONARY: Denies chronic cough, dyspnea and wheezing. GASTROINTESTINAL: Denies nausea, vomiting GENITOURINARY: On dialysis ENDOCRINE: Denies polydipsia, polyphagia, polyuria, heat or cold intolerance. INFECTIOUS: Denies any recent upper respiratory tract infection, UTI, need for use of antibiotics. NUTRITION: Reports good appetite. PHYSICAL EXAMINATION: VITALS SIGNS: Please see below. GENERAL APPEARANCE:Patient seen, laying in bed, awake, alert, and oriented. Comfortable, in no acute distress. SKIN: Warm and moist. HEENT: Normocephalic, atraumatic. [place] palpebral conjunctiva, anicteric sclerae. Lips and mucosa appear moist. NECK: Supple, no thyromegaly. No obvious jugular venous distention. LUNGS: Clear to auscultation bilaterally. No wheezing appreciated. HEART: No chest wall abnormalities. Regular rate and rhythm with no murmurs appreciated. ABDOMEN: Abdomen is , soft, nondistended, mildly tender periumbilical area no rebound or guarding EXTREMITIES: Extremities have no deformities. No edema identified ANCILLARIES: . LABORATORY DATA: Please see below. IMAGING STUDIES: . IMPRESSION AND PLAN: GI bleeding Patient was seen while he was on dialysis. He looks hemodynamically stable he is tolerating dialysis well. His initial hemoglobin is close to his baseline though he reports he has had several bloody stools this morning. He has had only one bloody bowel movement episode so far since he had been seen in the emergency room. From his description, probably lower GI bleeding. His last colonoscopy was in 2009. He is not sure if they ever mentioned diverticulosis during that time. But most likely this is diverticular in origin. This does not sound like melanotic stools previous description. Since we had evidence of ulcers back in January I'll also like to do an upper endoscopy this time around. We will do a bowel prep tonight so long as he remains hemodynamically stable, we will proceed with colonoscopy and upper endoscopy in the morning. Vital Signs Vital Signs Date Time Temp Pulse Resp B/P (MAP) Pulse Ox O2 Delivery O2 Flow Rate FiO2 04/03/17 08:00 97.7 89 18 158/70 (99) 99 Room Air I&Os I&O- Last 24 Hours up to 6 AM 04/03/17 06:00 Intake Total 480 ml Output Total 2300 ml Balance -1820 ml Laboratory Data Labs 24H Laboratory Tests 2 04/02/17 10:52: White Blood Count 4.5, Red Blood Count 3.33L, Hemoglobin 9.6L, Hematocrit 30.0L , Mean Corpuscular Volume 90.1, Mean Corpuscular Hemoglobin 28.9, Mean Corpuscular Hemoglobin Concent 32.0, Red Cell Distribution Width 15.8H, Platelet Count 208, Neutrophils (%) (Auto) 62.2, Lymphocytes (%) (Auto) 26.0, Monocytes (%) (Auto) 6.5H, Eosinophils (%) (Auto) 1.6, Basophils (%) (Auto) 0.8 , Neutrophils # (Auto) 2.8, Lymphocytes # (Auto) 1.3L, Monocytes # (Auto) 0.3, Eosinophils # (Auto) 0.1, Basophils # (Auto) 0.0, Large Unclassified Cells % 2.8 , Large Unclassified Cells # 0.1, Anion Gap 5L, Glomerular Filtration Rate 11.3L , Lactic Acid Level 0.8, Calcium Level 8.8, Aspartate Amino Transf (AST/SGOT) 12L, Alanine Aminotransferase (ALT/SGPT) 21, Alkaline Phosphatase 71, Total Bilirubin 0.5, Direct Bilirubin 0.2, Total Creatine Kinase 82, Creatine Kinase MB 1.4, Creatine Kinase MB Relative Index 1.70, Troponin I < 0.02, Total Protein 6.4, Albumin 2.9L, Albumin/Globulin Ratio 0.83L, Amylase Level 54, Lipase 226 04/02/17 17:59: Bedside Glucose (Misc Panel) 73L 04/02/17 21:09: Total Creatine Kinase 55, Creatine Kinase MB 1.4, Creatine Kinase MB Relative Index 2.54, Troponin I < 0.02 04/03/17 00:04: Bedside Glucose (Misc Panel) 151H 04/03/17 05:49: White Blood Count 4.7, Red Blood Count 3.09L, Hemoglobin 8.9L, Hematocrit 27.2L , Mean Corpuscular Volume 87.9, Mean Corpuscular Hemoglobin 28.7, Mean Corpuscular Hemoglobin Concent 32.7, Red Cell Distribution Width 16.0H, Platelet Count 193, Neutrophils (%) (Auto) 58.0, Lymphocytes (%) (Auto) 29.0, Monocytes (%) (Auto) 6.7H, Eosinophils (%) (Auto) 2.2, Basophils (%) (Auto) 0.8 , Neutrophils # (Auto) 2.7, Lymphocytes # (Auto) 1.5, Monocytes # (Auto) 0.3, Eosinophils # (Auto) 0.1, Basophils # (Auto) 0.0, Large Unclassified Cells % 3.5 , Large Unclassified Cells # 0.2, Anion Gap 9, Glomerular Filtration Rate 16.6L , Blood Urea Nitrogen 43H, Creatinine 3.90H, Sodium Level 137, Potassium Level 4.6, Chloride Level 100, Carbon Dioxide Level 28, Calcium Level 8.8, Total Creatine Kinase 59, Magnesium Level 2.6H, Creatine Kinase MB 1.2, Creatine Kinase MB Relative Index 2.03, Troponin I < 0.02 CBC/BMP Laboratory Tests 04/02/17 10:52 Red Blood Count 3.33 L, Mean Corpuscular Volume 90.1, Mean Corpuscular Hemoglobin 28.9, Mean Corpuscular Hemoglobin Concent 32.0, Red Cell Distribution Width 15.8 H, Neutrophils (%) (Auto) 62.2, Lymphocytes (%) (Auto) 26.0, Monocytes (%) (Auto) 6.5 H, Eosinophils (%) (Auto) 1.6, Basophils (%) ( Auto) 0.8, Neutrophils # (Auto) 2.8, Lymphocytes # (Auto) 1.3 L, Monocytes # ( Auto) 0.3, Eosinophils # (Auto) 0.1, Basophils # (Auto) 0.0 04/02/17 18:04 04/02/17 23:44 04/03/17 05:49 Red Blood Count 3.09 L, Mean Corpuscular Volume 87.9, Mean Corpuscular Hemoglobin 28.7, Mean Corpuscular Hemoglobin Concent 32.7, Red Cell Distribution Width 16.0 H, Neutrophils (%) (Auto) 58.0, Lymphocytes (%) (Auto) 29.0, Monocytes (%) (Auto) 6.7 H, Eosinophils (%) (Auto) 2.2, Basophils (%) ( Auto) 0.8, Neutrophils # (Auto) 2.7, Lymphocytes # (Auto) 1.5, Monocytes # (Auto ) 0.3, Eosinophils # (Auto) 0.1, Basophils # (Auto) 0.0, Calcium Level 8.8, Total Creatine Kinase 59 Home Medications Scheduled (Sertraline HCl) 50 Mg Tab, 50 MG PO DAILY, (Reported) (Dialyvite 3000 3 mg) 1 Tab Tab, 1 TAB PO DAILY, (Reported) Insulin Glargine (Lantus) 100 Unit/Ml Inj, 8-12 UNIT SC BID, (Reported) Sucralfate (Sucralfate) 1 Gm Tab, 1 GM PO ACHS, (Reported) Allergies Coded Allergies: Metformin (Verified Adverse Reaction, Severe, Heart Failure, 12/04/12) Rosiglitazone (Verified Adverse Reaction, Severe, Heart Failure, 12/04/12) PATRICK MENESES MD Apr 03, 2017 09:49
[2017-04-03 12:00] VITALS: BP 145/68
--- NOTE | 2017-04-03 14:12 | IPNPDOC ---
Subjective Date Seen The patient was seen on 04/03/17. Subjective Chief Complaint/HPI Patient seen and examined at the bedside. States that he did have dark colored stools overnight, but notes that they were a clearer brown compared to before when they were darker with clots. Otherwise denies any acute overnight complaints. Objective Physical Examination General Exam: Positive: Alert, Cooperative, No Acute Distress ENT Exam: Positive: Atraumatic, Mucous membr. moist/pink Neck Exam: Negative: JVD Chest Exam: Positive: Clear to auscultation, Normal air movement Heart Exam: Positive: Rate Normal, Normal S1, Normal S2 Abdomen Exam: Positive: Soft, Negative: Tenderness Extremity Exam: Negative: Tenderness, Swelling Psych Exam: Positive: Oriented x 3 Assessment /Plan Plan/VTE VTE Prophylaxis Ordered?: Yes Plan Acute GI bleed History of Gastric Ulcers noted on EGD in January 2017 Patient did have a colonoscopy in 2009, does not recollect the results at this time Not on any anticoagulation or antiplatelet therapy Hgb stable since admission, blood pressure stable Patient does state that he had a few BMs overnight with dark colored stool noted --however he reports that the color is turning into a clearer brown compared to before when it was dark with clots Denies any symptoms of SOB, C/P, Palpitations Cont PPI, Carafate Surgery on board--tentatively scheduled for EGD + Colonoscopy today End-stage renal disease on hemodialysis s/p HD yesterday Nephrology on board for assistance Diabetes mellitus type 2 Insulin Sliding Scale History of JACKELYN Not on CPAP, as he states that he has lost 100lbs since Will need to f/u as an outpatient for repeat studies, further evaluation Depression Continue Zoloft DVT Prophylaxis TEDs VS, I&O, 24H, Fishbone Vital Signs/I&O Vital Signs Date Time Temp Pulse Resp B/P (MAP) Pulse Ox O2 Delivery O2 Flow Rate FiO2 04/03/17 12:00 97.8 86 18 145/68 (93) 100 Room Air I&O- Last 24 Hours up to 6 AM 04/03/17 06:00 Intake Total 480 ml Output Total 2300 ml Balance -1820 ml Laboratory Data 24H LABS Laboratory Tests 2 04/02/17 17:59: Bedside Glucose (Misc Panel) 73L 04/02/17 21:09: Total Creatine Kinase 55, Creatine Kinase MB 1.4, Creatine Kinase MB Relative Index 2.54, Troponin I < 0.02 04/03/17 00:04: Bedside Glucose (Misc Panel) 151H 04/03/17 05:49: Total Creatine Kinase 59, Creatine Kinase MB 1.2, Creatine Kinase MB Relative Index 2.03, Troponin I < 0.02, White Blood Count 4.7, Red Blood Count 3.09L, Hemoglobin 8.9L, Hematocrit 27.2L, Mean Corpuscular Volume 87.9, Mean Corpuscular Hemoglobin 28.7, Mean Corpuscular Hemoglobin Concent 32.7, Red Cell Distribution Width 16.0H, Platelet Count 193, Neutrophils (%) (Auto) 58.0, Lymphocytes (%) (Auto) 29.0, Monocytes (%) (Auto) 6.7H, Eosinophils (%) (Auto) 2.2, Basophils (%) (Auto) 0.8, Neutrophils # (Auto) 2.7, Lymphocytes # (Auto) 1.5, Monocytes # (Auto) 0.3, Eosinophils # (Auto) 0.1, Basophils # (Auto) 0.0, Large Unclassified Cells % 3.5, Large Unclassified Cells # 0.2, Anion Gap 9, Glomerular Filtration Rate 16.6L, Blood Urea Nitrogen 43H, Creatinine 3.90H, Sodium Level 137, Potassium Level 4.6, Chloride Level 100, Carbon Dioxide Level 28, Calcium Level 8.8, Magnesium Level 2.6H 04/03/17 12:13: Bedside Glucose (Misc Panel) 122H CBC/BMP Laboratory Tests 04/02/17 18:04 04/02/17 23:44 04/03/17 05:49 Red Blood Count 3.09 L, Mean Corpuscular Volume 87.9, Mean Corpuscular Hemoglobin 28.7, Mean Corpuscular Hemoglobin Concent 32.7, Red Cell Distribution Width 16.0 H, Neutrophils (%) (Auto) 58.0, Lymphocytes (%) (Auto) 29.0, Monocytes (%) (Auto) 6.7 H, Eosinophils (%) (Auto) 2.2, Basophils (%) ( Auto) 0.8, Neutrophils # (Auto) 2.7, Lymphocytes # (Auto) 1.5, Monocytes # (Auto ) 0.3, Eosinophils # (Auto) 0.1, Basophils # (Auto) 0.0, Calcium Level 8.8, Total Creatine Kinase 59 04/03/17 11:43 MARY ZACARIAS MD Apr 03, 2017 14:12
[2017-04-03] MEDS ORDERED: GLUCOSE 4 GM CHEW TABLET PO PRN (14:15)
[2017-04-03] MEDS ORDERED: DEXTROSE 50% 50 ML SYRINGE IV PRN (14:15)
[2017-04-03] MEDS ORDERED: GLUCAGON FOR INJ 1 MG VIAL (J1610) SC PRN (14:15)
[2017-04-03] MEDS ORDERED: PROPOFOL 200 MG/20 ML VIAL As Ordered ONE (15:27)
[2017-04-03] MEDS ORDERED: LIDOCAINE 2% INJ 100 MG/5 ML SDV (FOR ANES.) As Ordered ONE (15:28)
--- NOTE | 2017-04-03 15:37 | ROOR ---
Patient Name: Octavio Rico Procedure Date: 04/03/2017 2:24 PM Date of : 1950 Age: 66 Gender: Male Note Status: Finalized Procedure: Upper GI endoscopy Indications: Melena Providers: Melecio Peters MD Referring MD: Amari Waters MD Requesting Provider: Medicines: Monitored Anesthesia Care Complications: No immediate complications. Procedure: Pre-Anesthesia Assessment: - Prior to the procedure, a History and Physical was performed, and patient medications and allergies were reviewed. The patient is competent. The risks and benefits of the procedure and the sedation options and risks were discussed with the patient. All questions were answered and informed consent was obtained. Patient identification and proposed procedure were verified by the physician, the nurse and the anesthesiologist in the procedure room. Mental Status Examination: alert and oriented. Airway Examination: normal oropharyngeal airway and neck mobility. Respiratory Examination: clear to auscultation. CV Examination: normal. Prophylactic Antibiotics: The patient does not require prophylactic antibiotics. Prior Anticoagulants: The patient has taken no previous anticoagulant or antiplatelet agents. ASA Grade Assessment: III - A patient with severe systemic disease. After reviewing the risks and benefits, the patient was deemed in satisfactory condition to undergo the procedure. The anesthesia plan was to use monitored anesthesia care (MAC). Immediately prior to administration of medications, the patient was re-assessed for adequacy to receive sedatives. The heart rate, respiratory rate, oxygen saturations, blood pressure, adequacy of pulmonary ventilation, and response to care were monitored throughout the procedure. The physical status of the patient was re-assessed after the procedure. The Endoscope was introduced through the mouth, and advanced to the afferent and efferent jejunal loops. The upper GI endoscopy was accomplished without difficulty. The patient tolerated the procedure well. Findings: The examined esophagus was normal. One oozing superficial gastric ulcer with adherent clot was found at the anastomosis. The lesion was 10 mm in largest dimension. Initially nonbleeding with adherent clot, when clot dislodged, no active bleeding but surrounding mucosa friable with slight contact bleeding. Attempt at clip placement failed, hard mucosa, clip would not take. Bleeding stopped on its own. For hemostasis, one hemostatic clip was successfully placed (MR conditional). Bleeding had stopped at the end of the procedure. The examined jejunum was normal. Impression: - Normal esophagus. - Oozing gastric ulcer with adherent clot. Clip (MR conditional) was placed. - Normal examined jejunum. - No specimens collected. Recommendation: - Admit the patient to hospital young for ongoing care. - Clear liquid diet today. Melecio Peters MD Melecio Peters MD 04/03/2017 3:37:09 PM This report has been signed electronically. Number of Addenda: 0 Note Initiated On: 04/03/2017 2:24 PM Estimated Blood Loss: Estimated blood loss was minimal.
--- NOTE | 2017-04-03 15:42 | ROOR ---
Patient Name: Octavio Rico Procedure Date: 04/03/2017 2:26 PM Date of : 1950 Age: 66 Room: Main OR Gender: Male Note Status: Finalized Procedure: Colonoscopy Indications: Gastrointestinal bleeding Providers: Melecio Petres MD Referring MD: Amari Waters MD Requesting Provider: Medicines: Monitored Anesthesia Care Complications: No immediate complications. Procedure: Pre-Anesthesia Assessment: - Prior to the procedure, a History and Physical was performed, and patient medications and allergies were reviewed. The patient is competent. The risks and benefits of the procedure and the sedation options and risks were discussed with the patient. All questions were answered and informed consent was obtained. Patient identification and proposed procedure were verified by the physician, the nurse and the anesthesiologist in the procedure room. Mental Status Examination: alert and oriented. Airway Examination: normal oropharyngeal airway and neck mobility. Respiratory Examination: clear to auscultation. CV Examination: normal. Prophylactic Antibiotics: The patient does not require prophylactic antibiotics. Prior Anticoagulants: The patient has taken no previous anticoagulant or antiplatelet agents. ASA Grade Assessment: III - A patient with severe systemic disease. After reviewing the risks and benefits, the patient was deemed in satisfactory condition to undergo the procedure. The anesthesia plan was to use monitored anesthesia care (MAC). Immediately prior to administration of medications, the patient was re-assessed for adequacy to receive sedatives. The heart rate, respiratory rate, oxygen saturations, blood pressure, adequacy of pulmonary ventilation, and response to care were monitored throughout the procedure. The physical status of the patient was re-assessed after the procedure. The Colonoscope was introduced through the anus and advanced to the cecum, identified by appendiceal orifice and ileocecal valve. The colonoscopy was somewhat difficult due to inability to fully insufflate, pt not able to hold air. The quality of the bowel preparation was fair. Findings: The perianal exam findings include non-thrombosed external hemorrhoids and internal hemorrhoids that prolapse with straining, but require manual replacement into the anal canal (Grade III). The colon (entire examined portion) appeared normal. No evidence of recent bleed, no stimata of recent bleed. No additional abnormalities were found on retroflexion. Impression: - Preparation of the colon was fair. - Non-thrombosed external hemorrhoids and internal hemorrhoids that prolapse with straining, but require manual replacement into the anal canal (Grade III) found on perianal exam. - The entire examined colon is normal. - No specimens collected. Recommendation: - Admit the patient to hospital young for ongoing care. Melecio Peters MD Melecio Peters MD 04/03/2017 3:41:50 PM This report has been signed electronically. Number of Addenda: 0 Note Initiated On: 04/03/2017 2:26 PM Estimated Blood Loss: Estimated blood loss: none.
[2017-04-03] MEDS ORDERED: NS 1,000 ML IV SCH (16:15)
[2017-04-03 16:52] VITALS: BP 167/79
--- NOTE | 2017-04-03 17:15 | CR ---
DATE OF CONSULTATION: 04/02/2017 CONSULTATION REPORT FOR: Dr. Shani Hogan REASON FOR CONSULTATION: Management of end-stage renal disease on hemodialysis. CHIEF COMPLAINT: Recurrent bloody bowel movements. HISTORY OF PRESENT ILLNESS: The patient is a 66-year-old male with past medical history of end-stage renal disease secondary to type 2 diabetes on hemodialysis Friday, Friday and Friday maintenance schedule via a left upper extremity arteriovenous (AV) fistula, has been dialysis dependent for the past two years, also past medical history of long-standing type 2 diabetes of 40 years duration, diabetic neuropathy, diabetic retinopathy, history of hypertension, dyslipidemia, obesity status post gastric bypass, and history of known gastric ulcers and secondary hyperparathyroidism. The patient was in his usual state of health until this morning when he had seven episodes of bloody bowel movements. He denies any associated abdominal pain or cramps. He denies any nausea or vomiting. He does note mild lightheadedness in the morning. The bloody bowel movements were described as dark clots. He had one further episode in the emergency room this morning. The patient has had a prior episode of gastrointestinal (GI) bleed. He was admitted to [facility] in January of 2017 for the same. He had an upper endoscopy performed at the time that showed two non-bleeding gastric ulcers. His last colonoscopy was several years ago. On triage, the patient was hypertensive, blood pressure 160/82 with a normal pulse of 80. In the emergency room, he was given one liter normal saline bolus and started on Protonix IV. Laboratories revealed a stable hemoglobin of 9.6 with a potassium of 5.2. He is due for dialysis today. The patient did not require transfusion thus far. He has been scheduled for endoscopy and colonoscopy tomorrow. The patient was seen by myself on hemodialysis today. He had 2000 mL removed and tolerated his session without any complaint. REVIEW OF SYSTEMS: Negative for headache, syncope. Positive for mild lightheadedness in the morning, since resolved. Negative for chest pain, palpitations. Positive for dyspnea on exertion. Negative for nausea, vomiting, diarrhea. Positive for multiple dark bloody bowel movements as per history of present illness (HPI). Positive for lower extremity edema. Negative for abdominal pain. Remainder of review of systems is negative. VITAL SIGNS: Temperature 97.7, pulse 81, respiratory rate 18, blood pressure 124/65, saturating 100% on room air. Intake: Received one liter normal saline bolus in the emergency room (ER). Dialysis net ultrafiltration: 2000 mL. PHYSICAL EXAMINATION: GENERAL: Awake, alert and oriented times three, sitting upright in no acute distress. EYES: Extraocular muscles intact. No conjunctival pallor. EARS, NOSE AND THROAT: Moist mucous membranes. NECK: Supple. No lymphadenopathy. CARDIOVASCULAR: Regular rate and rhythm. No murmurs, 2+ radial pulse, 1 to 2+ pitting edema in the lower extremities. LUNGS: Clear to auscultation bilaterally without rales, rhonchi, or wheeze. ABDOMEN: Soft, nontender, nondistended. Positive bowel sounds. MUSCULOSKELETAL: Normal range of motion. EXTREMITIES: Left upper extremity fistula with thrill and bruit. NEUROLOGIC: Alert and oriented times three. No focal deficits. Appropriately interactive and conversational. PSYCHIATRIC: Appropriate mood and affect. LABORATORY DATA: Hemoglobin 9.6, white count 4.5, of note the hemoglobin is pre-dialysis, platelet count 208. Sodium 135, potassium 5.2, bicarbonate 33, BUN 65, corrected calcium 9.6. IMAGING STUDIES: CT abdomen and pelvis shows mild to moderate bilateral pleural effusions. No free air. No free fluid. INPATIENT MEDICATIONS: - acetaminophen as needed - ondansetron 4 mg by mouth six hours as needed - Protonix 40 mg IV twice a day - sertraline 50 mg by mouth daily - sucralfate HOME MEDICATIONS: Insulin, Dialyvite, sertraline. The patient denies taking sevelamer, Sensipar, Protonix. PAST MEDICAL HISTORY: 1. End-stage renal disease secondary to diabetic nephropathy. 2. Insulin-dependent diabetes. 3. Anemia of chronic kidney disease. 4. Secondary hyperparathyroidism. 5. Dyslipidemia. 6. History of obstructive sleep apnea. 7. History of depression. 8. History of gastric ulcer. PAST SURGICAL HISTORY: 1. Bilateral cataract surgery. 2. Bilateral shoulder arthroscopy. 3. Gastric bypass surgery. 4. Left arm arteriovenous (AV) fistula creation. PERSONAL AND SOCIAL HISTORY: He has a prior history of drinking which he has quit awhile ago. He does not smoke. Denies recreational drugs. FAMILY HISTORY: Negative for end-stage renal disease. ALLERGIES: METFORMIN, ROSIGLITAZONE. ASSESSMENT AND PLAN: A 66-year-old male with end-stage renal disease on hemodialysis, type 2 diabetes, volume overload, secondary hyperparathyroidism, anemia of chronic kidney disease, depression, obesity status post gastric bypass, history of known gastric ulcer who presents with gastrointestinal (GI) bleed. 1. End-stage renal disease, on hemodialysis Friday, Friday and Friday maintenance schedule via left upper extremity arteriovenous (AV) fistula. The patient is clinically volume overloaded on examination. He has 2+ peripheral edema and mild to moderate bilateral pleural effusions. He denies history of recent missed dialysis sessions. He has significant interdialytic weight gain. He was previously on oral diuretics on non-dialysis days. He needs optimization of his fluid balance. He notes dyspnea on exertion and occasionally sleeps in a recliner. His volume status would be optimized over days to weeks of hemodialysis with serial ultrafiltration and fluid restriction by the patient. This will be done outpatient after this acute event of GI bleed has resolved. He has received his maintenance hemodialysis session today with 2 kg ultrafiltration. 2. GI bleed, history of gastric ulcer. The patient's target hemoglobin at dialysis is between 10-11. His current hemoglobin is 9.6 in pre-dialysis, likely diluted. He is currently asymptomatic from his GI bleed. If he needs a transfusion, we can arrange with hemodialysis. He is having complete blood count (CBC) monitoring. He will be nothing by mouth after midnight for scope tomorrow. He remains on IV Protonix twice a day. The patient denies any history of anticoagulant medication. He is no longer on aspirin for the past few months. 3. Hyperkalemia, potassium 5.2, will improve with dialysis. Continue maintenance schedule. 4. Grade 2 diastolic dysfunction. Echocardiogram 01/20/2017 reviewed. Normal left ventricular (LV) systolic function with diastolic dysfunction and moderate pulmonary hypertension. The patient's volume status is decompensated. He has bilateral mild to moderate pleural effusions and significant peripheral edema. We would optimize his volume status over days to weeks after this acute episode of GI bleed has resolved. 5. Secondary hyperparathyroidism. We will check his intact parathyroid hormone level and then consider further steps. Plan of care was discussed with Dr. Shani Hogan. Thank you for involving us in the care of Mr. Rico. I will follow him along with you.
[2017-04-03] MEDS: HumaLOG INSULIN (NovoLOG) PER UNIT SC SCH (17:34)
[2017-04-03] MEDS ORDERED: HumaLOG INSULIN (NovoLOG) PER UNIT SC SCH ×2 (18:00→21:00)
[2017-04-03 20:00] VITALS: BP 161/82
[2017-04-04] VITALS: BP 111/58
[2017-04-04 04:00] VITALS: BP 113/56
[2017-04-04 05:56] LABS: BASO % 0.3 % (0.0-1.0); EOS % 0.2 % (0.0-3.0); LARGE UNSTAINED CELL # 0.1 K/mm3 (0.0-0.4); LARGE UNSTAINED CELL % 0.9 % (0.0-4.0); LYMPH % 8.4 % (24.0-44.0); MEAN CORPUSCULAR HEMOGLOBIN 29.4 pg (27.0-33.0); MEAN CORPUSCULAR HGB CONC 33.8 g/dl (32.0-36.5); MONO # 0.4 K/mm3 (0.0-0.8); MONO % 3.8 % (0.0-5.0); NEUTROPHILS # 9.7 K/mm3 (1.8-7.7); NEUTROPHILS % 86.4 % (36.0-66.0); PLATELET COUNT, AUTOMATED 170 k/mm3 (150-450); RED CELL DISTRIBUTION WIDTH 16.2 % (11.5-14.5); WHITE BLOOD COUNT 11.2 K/mm3 (4.0-10.0)
[2017-04-04 06:15] LABS: CALCIUM LEVEL 8.4 MG/DL (8.8-10.2); CREATININE FOR GFR 5.06 MG/DL (0.70-1.30); GLOMERULAR FILTRATION RATE 12.3 (>49); MAGNESIUM LEVEL 2.6 MG/DL (1.8-2.4)
[2017-04-04] MEDS: HumaLOG INSULIN (NovoLOG) PER UNIT SC SCH ×2 (07:52→12:14)
[2017-04-04] MEDS: PANTOPRAZOLE 40MG INJ (PROTONIX) (C9113) IV SCH (07:52)
[2017-04-04] MEDS: SERTRALINE HCL 50 MG TAB PO SCH (07:52)
[2017-04-04] MEDS: SUCRALFATE 1 GM TAB PO SCH ×2 (07:52→12:13)
[2017-04-04 08:00] VITALS: BP 137/63
[2017-04-04] MEDS ORDERED: SLF 3 ML SYR IV PRN (11:15)
[2017-04-04] MEDS ORDERED: PROT1TAB2 PO (12:59)
[2017-04-04] MEDS ORDERED: SLF 3 ML SYR IV SCH (14:00)
--- NOTE | 2017-04-04 14:21 | DS.PDOC ---
Discharge Summary General Date of Admission Apr 02, 2017 at 12:43 Date of Discharge 04/04/17 Specialist/Consultants Involve Dr. Peters of General Surgery, Dr. Yocasta Waters of Nephrology Discharge Summary PROCEDURES PERFORMED DURING STAY: EGD, Colonoscopy ADMITTING DIAGNOSES: 1. . GI bleeding 2. . End-stage renal disease on hemodialysis DISCHARGE DIAGNOSES: 1. . GI bleeding 2. . End-stage renal disease on hemodialysis COMPLICATIONS/CHIEF COMPLAINT: Gi Hemorrhage. HISTORY OF PRESENT ILLNESS: . 66 y/o male with end-stage renal disease on hemodialysis, diabetes mellitus type 2, diabetic neuropathy, diabetic retinopathy, diabetic nephropathy, hypertension, hyperlipidemia, history of JACKELYN, depression, obesity s/p gastric bypass, known gastric ulcers, who presented with 7 episodes of bloody BM. The patient stated that he had began having dark colored stools around 9 AM prior to his presentation to the ER. He denied any associated abdominal pain. He did note that he had a recent EGD performed at [facility] by Dr. Peters last month. At that time, the patient was noted to have 2 nonbleeding gastric ulcers. He was recommended to continue on Protonix twice a day. However, the patient reports that the dark colored bowel movements concerned him over the last 24 hours sleep presents to the ER. He denied any complaints of fevers, chills, nausea, vomiting, chest pain, shortness breath, abdominal pain, or any other acute complaints. In the ER, the patient was noted to have a stable hemoglobin. He was admitted to the hospitalist service for further evaluation and management. A consult was placed to surgery for further evaluation and management. Nephrology was also consulted to assist in dialysis management for the patient's chronic end-stage renal disease. During hospitalization, the patient did undergo an EGD which revealed an oozing gastric ulcer with adherent clot. A clip was placed. In addition, the patient also had a colonoscopy done which revealed external hemorrhoids and internal hemorrhoids the prolapse with straining. The patient did not have any further episodes of dark colored stools here. He did receive 1 unit of packed red blood cells. Otherwise, the patient remained hemodynamically stable. At this time, the patient states that he is feeling well and is eager to return home. He has been advised to follow-up with his primary care physician within one week. In addition he has also been advised to follow-up for his dialysis appointment later this afternoon up with her p.m. In the event of any recurrent GI bleeding or acute emergencies, the patient has been advised return to ER. DISCHARGE MEDICATIONS: Please see below. ALLERGIES: Please see below. PHYSICAL EXAMINATION ON DISCHARGE: VITAL SIGNS: Please see below. General Exam: Positive: Alert, Cooperative, No Acute Distress ENT Exam: Positive: Atraumatic, Mucous membr. moist/pink Neck Exam: Negative: JVD Chest Exam: Positive: Clear to auscultation, Normal air movement Heart Exam: Positive: Rate Normal, Normal S1, Normal S2 Abdomen Exam: Positive: Soft, Negative: Tenderness Extremity Exam: Negative: Tenderness, Swelling Psych Exam: Positive: Oriented x 3 LABORATORY DATA: Please see below. IMAGING: Procedure: Upper GI endoscopy Indications: Melena Providers: Melecio Peters MD Referring MD: Amari Waters MD Requesting Provider: Medicines: Monitored Anesthesia Care Complications: No immediate complications. Procedure: Pre-Anesthesia Assessment: - Prior to the procedure, a History and Physical was performed, and patient medications and allergies were reviewed. The patient is competent. The risks and benefits of the procedure and the sedation options and risks were discussed with the patient. All questions were answered and informed consent was obtained. Patient identification and proposed procedure were verified by the physician, the nurse and the anesthesiologist in the procedure room. Mental Status Examination: alert and oriented. Airway Examination: normal oropharyngeal airway and neck mobility. Respiratory Examination: clear to auscultation. CV Examination: normal. Prophylactic Antibiotics: The patient does not require prophylactic antibiotics. Prior Anticoagulants: The patient has taken no previous anticoagulant or antiplatelet agents. ASA Grade Assessment: III - A patient with severe systemic disease. After reviewing the risks and benefits, the patient was deemed in satisfactory condition to undergo the procedure. The anesthesia plan was to use monitored anesthesia care (MAC). Immediately prior to administration of medications, the patient was re-assessed for adequacy to receive sedatives. The heart rate, respiratory rate, oxygen saturations, blood pressure, adequacy of pulmonary ventilation, and response to care were monitored throughout the procedure. The physical status of the patient was re-assessed after the procedure. The Endoscope was introduced through the mouth, and advanced to the afferent and efferent jejunal loops. The upper GI endoscopy was accomplished without difficulty. The patient tolerated the procedure well. Findings: The examined esophagus was normal. One oozing superficial gastric ulcer with adherent clot was found at the anastomosis. The lesion was 10 mm in largest dimension. Initially nonbleeding with adherent clot, when clot dislodged, no active bleeding but surrounding mucosa friable with slight contact bleeding. Attempt at clip placement failed, hard mucosa, clip would not take. Bleeding stopped on its own. For hemostasis, one hemostatic clip was successfully placed (MR conditional). Bleeding had stopped at the end of the procedure. The examined jejunum was normal. Impression: - Normal esophagus. - Oozing gastric ulcer with adherent clot. Clip (MR conditional) was placed. - Normal examined jejunum. - No specimens collected. Recommendation: - Admit the patient to hospital young for ongoing care. - Clear liquid diet today. Procedure: Colonoscopy Indications: Gastrointestinal bleeding Providers: Melecio Peters MD Referring MD: Amari Waters MD Requesting Provider: Medicines: Monitored Anesthesia Care Complications: No immediate complications. Procedure: Pre-Anesthesia Assessment: - Prior to the procedure, a History and Physical was performed, and patient medications and allergies were reviewed. The patient is competent. The risks and benefits of the procedure and the sedation options and risks were discussed with the patient. All questions were answered and informed consent was obtained. Patient identification and proposed procedure were verified by the physician, the nurse and the anesthesiologist in the procedure room. Mental Status Examination: alert and oriented. Airway Examination: normal oropharyngeal airway and neck mobility. Respiratory Examination: clear to auscultation. CV Examination: normal. Prophylactic Antibiotics: The patient does not require prophylactic antibiotics. Prior Anticoagulants: The patient has taken no previous anticoagulant or antiplatelet agents. ASA Grade Assessment: III - A patient with severe systemic disease. After reviewing the risks and benefits, the patient was deemed in satisfactory condition to undergo the procedure. The anesthesia plan was to use monitored anesthesia care (MAC). Immediately prior to administration of medications, the patient was re-assessed for adequacy to receive sedatives. The heart rate, respiratory rate, oxygen saturations, blood pressure, adequacy of pulmonary ventilation, and response to care were monitored throughout the procedure. The physical status of the patient was re-assessed after the procedure. The Colonoscope was introduced through the anus and advanced to the cecum, identified by appendiceal orifice and ileocecal valve. The colonoscopy was somewhat difficult due to inability to fully insufflate, pt not able to hold air. The quality of the bowel preparation was fair. Findings: The perianal exam findings include non-thrombosed external hemorrhoids and internal hemorrhoids that prolapse with straining, but require manual replacement into the anal canal (Grade III). The colon (entire examined portion) appeared normal. No evidence of recent bleed, no stimata of recent bleed. No additional abnormalities were found on retroflexion. Impression: - Preparation of the colon was fair. - Non-thrombosed external hemorrhoids and internal hemorrhoids that prolapse with straining, but require manual replacement into the anal canal (Grade III) found on perianal exam. - The entire examined colon is normal. - No specimens collected. Recommendation: - Admit the patient to hospital young for ongoing care. PROGNOSIS: Medically stable ACTIVITY: As tolerated. DIET: . 2 g low sodium diet DISCHARGE PLAN: DISPOSITION: 01 Home, Self-Care. DISCHARGE INSTRUCTIONS: 1. . Follow-up with primary care physician within one week 2. . Follow with nephrology for dialysis sessions as per schedule 3. . Return to the ER for any acute emergencies DISCHARGE CONDITION: Stable. TIME SPENT ON DISCHARGE: Greater than 30 minutes. Vital Signs/I&Os Vital Signs Date Time Temp Pulse Resp B/P (MAP) Pulse Ox O2 Delivery O2 Flow Rate FiO2 04/04/17 08:00 98.1 86 18 137/63 (87) 96 Room Air 04/03/17 16:06 2 I&O- Last 24 Hours up to 6 AM 04/04/17 06:00 Intake Total 485 ml Balance 485 ml Laboratory Data Labs 24H Laboratory Tests 2 04/03/17 17:17: Bedside Glucose (Misc Panel) 172H 04/03/17 22:31: Bedside Glucose (Misc Panel) 141H 04/04/17 05:45: White Blood Count 11.2H, Red Blood Count 2.67L, Hemoglobin 7.9L, Hematocrit 23.2L, Mean Corpuscular Volume 87.0, Mean Corpuscular Hemoglobin 29.4, Mean Corpuscular Hemoglobin Concent 33.8, Red Cell Distribution Width 16.2H, Platelet Count 170, Neutrophils (%) (Auto) 86.4H, Lymphocytes (%) (Auto) 8.4L, Monocytes (%) (Auto) 3.8, Eosinophils (%) (Auto) 0.2, Basophils (%) (Auto) 0.3, Neutrophils # (Auto) 9.7H, Lymphocytes # (Auto) 1.0L, Monocytes # (Auto) 0.4, Eosinophils # (Auto) 0.0, Basophils # (Auto) 0.0, Large Unclassified Cells % 0.9 , Large Unclassified Cells # 0.1, Anion Gap 11, Glomerular Filtration Rate 12.3L , Blood Urea Nitrogen 51H, Creatinine 5.06H, Sodium Level 138, Potassium Level 5.0, Chloride Level 101, Carbon Dioxide Level 26, Calcium Level 8.4L, Magnesium Level 2.6H 04/04/17 12:00: Bedside Glucose (Misc Panel) 217H CBC/BMP Laboratory Tests 04/03/17 18:03 04/04/17 05:45 Red Blood Count 2.67 L, Mean Corpuscular Volume 87.0, Mean Corpuscular Hemoglobin 29.4, Mean Corpuscular Hemoglobin Concent 33.8, Red Cell Distribution Width 16.2 H, Neutrophils (%) (Auto) 86.4 H, Lymphocytes (%) (Auto ) 8.4 L, Monocytes (%) (Auto) 3.8, Eosinophils (%) (Auto) 0.2, Basophils (%) ( Auto) 0.3, Neutrophils # (Auto) 9.7 H, Lymphocytes # (Auto) 1.0 L, Monocytes # ( Auto) 0.4, Eosinophils # (Auto) 0.0, Basophils # (Auto) 0.0, Calcium Level 8.4 L 04/04/17 08:28 FSBS Laboratory Tests Test 04/03/17 17:17 04/03/17 22:31 04/04/17 12:00 Range/Units Bedside Glucose (Misc Panel) 172 141 217 80-115 MG/DL Discharge Medications Scheduled (Sertraline HCl) 50 Mg Tab, 50 MG PO DAILY, (Reported) (Dialyvite 3000 3 mg) 1 Tab Tab, 1 TAB PO DAILY, (Reported) Insulin Glargine (Lantus) 100 Unit/Ml Inj, 8-12 UNIT SC BID, (Reported) Pantoprazole Sodium Sesquihydr (Protonix) 40 Mg Tab, 40 MG PO BID Sucralfate (Sucralfate) 1 Gm Tab, 1 GM PO ACHS, (Reported) Allergies Coded Allergies: Metformin (Verified Adverse Reaction, Severe, Heart Failure, 12/04/12) Rosiglitazone (Verified Adverse Reaction, Severe, Heart Failure, 12/04/12) MARY ZACARIAS MD Apr 04, 2017 14:21
--- NOTE | 2017-04-09 14:43 | IPN ---
DATE: 04/03/2017 SUBJECTIVE: The patient is seen today at the bedside. He tolerated his dialysis treatment well yesterday without issues. He had a net ultrafiltration of 2000 mL. He has nothing by mouth pending for endoscopy and colonoscopy later today. CBC monitoring overnight has shown stable hemoglobin. REVIEW OF SYSTEMS: Negative for headaches and fatigue, chest pain, palpitations, shortness of breath at rest. Negative for nausea and vomiting. Positive for multiple dark blood bowel movements. Positive for lower extremity edema. Remainder of review of systems is negative. PHYSICAL EXAMINATION : VITAL SIGNS: Afebrile. Temperature 97.7, pulse 89, respiratory rate 18, blood pressure 148/73, pulse oximetry 97 to 99% on room air. Intake and output: Intake, the patient has been nothing by mouth overnight. Dialysis yesterday removed 2000 mL ultrafiltration. Urine recorded as 300 mL and five recorded bowel movements after bowel prep overnight. Weight on the bed scale 82 kg, decreased from 83.6 yesterday. Awake, alert and oriented times three. Sitting upright in no acute distress. Extraocular muscles intact. No conjunctival pallor. Moist mucous membranes. Neck is supple. CARDIOVASCULAR: Regular rate and rhythm. 2+ radial pulse. 2+ pitting edema in the lower extremities. LUNGS: Symmetrical bilateral air entry without wheeze or rhonchi. ABDOMEN: Soft, nontender, nondistended. EXTREMITIES: Left upper extremity fistula with thrill and bruit. Bilateral lower extremities with pitting edema. NEUROLOGIC: Alert and oriented times three. No focal deficits. PSYCHIATRIC: Appropriate mood and affect. LABORATORY DATA: WBC 4.7, hemoglobin 8.9, unchanged from yesterday. Platelets 193. Sodium 137, potassium 4.6, bicarbonate 28, magnesium 2.6, troponin negative. INPATIENT MEDICATIONS: Unchanged from previous 24 hours. The patient did receive bowel prep for colonoscopy. ASSESSMENT AND PLAN: 1. End stage renal disease on hemodialysis Friday, Friday and Friday. The patient received a 2 hour hemodialysis treatment yesterday, which is shorter than his chronic time. I will not give him an extra hemodialysis session today as he did receive the bowel prep overnight and had frequent bowel movements. He will continue with his next maintenance session tomorrow to stay on his Friday, Friday and Friday schedule. He is clinically volume overloaded on examination. CAT scan did show bilateral mild to moderate pleural effusions and he does have peripheral edema. He has been noted to have significant intradialytic weight gain, although he states that he is compliant with fluid restriction. His volume status will continue to be optimized over weeks of chronic outpatient hemodialysis with challenges to his dry weight and serial ultrafiltration and fluid restriction by the patient. He may also need to be started on oral diuretics. He does have residual renal function. His volume status can be managed outpatient after this acute event has resolved of gastrointestinal bleed. 2. History of gastric ulcer. THe patient's hemoglobin has been stable over the past 24 hours. He has not required transfusion. He is receiving IV Protonix, and he is nothing by mouth for endoscopy and colonoscopy. 3. Grade 2 diastolic dysfunction with hypervolemia. Plan as detailed above.
--- NOTE | 2017-04-09 15:27 | IPN ---
DATE: 04/04/2017 SUBJECTIVE: The patient is seen today at the bedside. He is receiving one unit packed red blood cells transfusion ordered by hospitalist after his hemoglobin was 7.9 this morning. He underwent endoscopy yesterday which revealed an oozing gastric ulcer with adherent clot for which a clip was placed. He also had a colonoscopy which revealed external hemorrhoids and internal hemorrhoids that prolapsed with straining. The patient is currently discharge pending. He is due for dialysis at his outpatient center at 4:00 pm today. He has no complaints this morning. REVIEW OF SYSTEMS: Negative for dizziness, lightheadedness, chest pain, abdominal pain, nausea, vomiting, positive for dyspnea on exertion and lower extremity edema. PHYSICAL EXAMINATION: VITAL SIGNS: Afebrile, 98.9, pulse 86, respiratory rate 18, blood pressure 113/56, saturating 96% on room air. GENERAL: Awake, alert, oriented times four. No acute distress. HEENT: Atraumatic. Moist mucous membranes. Extraocular muscles intact. NECK: Supple. No jugular venous distention (JVD). CHEST: S1, S2, regular rate and rhythm. 2+ radial pulse. Pitting edema of the lower extremities present. RESPIRATORY: Clear to auscultation bilaterally on room air. ABDOMEN: Soft, nontender. NEUROLOGICAL: No focal deficits. PSYCHIATRIC: Appropriate mood and affect. LABS: WBC 11.2, hemoglobin 7.9, decreased from 9.3 yesterday. After platelets 170. Sodium 138, potassium 5.0. Magnesium 2.6. Glucose 120. IMAGING: Upper GI endoscopy: Oozing superficial gastric ulcer with adherent clot, with friable surrounding mucosa and slight contact bleeding. One hemostatic clip placed. Colonoscopy: Nonthrombosed external hemorrhoids and internal hemorrhoids that prolapse with straining. ASSESSMENT AND PLAN: 1. End-stage renal disease, on hemodialysis Friday, Friday, Friday. The patient is discharged pending today. He will go to his regular outpatient hemodialysis session. He will continue to have CBC monitoring at hemodialysis per protocol. 2. GI bleed. Gastric ulcer. Status post endoscopy and colonoscopy. The patient is being discharged on Protonix 40 mg by mouth twice a day and sucralfate 1 gram with meals. He is not on any anticoagulants or blood thinners including not on aspirin. 3. Diastolic dysfunction, volume overload. Will need his EDW challenged as an outpatient with more aggressive ultrafiltration over weeks with likely need for oral diuretics to help with his volume status.
== END 2017-04-04 13:58 | disposition home or self-care (01) | DRG 326 ==
LOC: M ED 10:26 → M ED INP 12:43 → M PCU 17:50
PROVIDERS: ADMIT Hospitalist; ATTEND Internal Medicine
PROC: 5A1D00Z (ICD-10-PCS; 2017-04-02)
PROC: 0DJD8ZZ Inspection of Lower Intestinal Tract, Via Natural or Artificial Opening Endoscopic (ICD-10-PCS; 2017-04-03)
PROC: 0DQ68ZZ Repair Stomach, Via Natural or Artificial Opening Endoscopic (ICD-10-PCS; principal; 2017-04-03 07:30)
PROC: 30233N1 Transfusion of Nonautologous Red Blood Cells into Peripheral Vein, Percutaneous Approach (ICD-10-PCS; 2017-04-04)
DX: K25.4 Chronic or unspecified gastric ulcer with hemorrhage (principal); N18.6 End stage renal disease; I12.0 Hypertensive chronic kidney disease with stage 5 chronic kidney disease or end stage renal disease; Z99.2 Dependence on renal dialysis; E11.40 Type 2 diabetes mellitus with diabetic neuropathy, unspecified; E11.21 Type 2 diabetes mellitus with diabetic nephropathy; F32.9 Major depressive disorder, single episode, unspecified; K64.4 Residual hemorrhoidal skin tags; D63.1 Anemia in chronic kidney disease; K64.2 Third degree hemorrhoids; E11.319 Type 2 diabetes mellitus with unspecified diabetic retinopathy without macular edema; E78.5 Hyperlipidemia, unspecified; Z98.84 Bariatric surgery status; Z88.8 Allergy status to other drugs, medicaments and biological substances; Z79.899 Other long term (current) drug therapy; Z79.4 Long term (current) use of insulin; Z82.49 Family history of ischemic heart disease and other diseases of the circulatory system; Z83.3 Family history of diabetes mellitus

== ENCOUNTER 2017-06-29 19:31 | Emergency (ER) | payer MEDICARE ==
[~2017-06-29] VITALS: Ht 172.7 cm; Wt 82.7 kg
[~2017-06-29 19:31] MED LIST changes: +PROT1TAB2 PO
[2017-06-29] MEDS ORDERED: GABA-279 PO (19:44)
[2017-06-29] MEDS ORDERED: TORS100T PO (19:44)
[2017-06-29] MEDS ORDERED: PIPERACILLIN/TAZOBACTAM SOD 2.25 GM in APPROPRIATE DILUENT 1 EA IV ONE (20:45)
[2017-06-29] MEDS ORDERED: VANCOMYCIN HCL 1,000 MG, VIAL MATE ADAPTER 1 EACH in D5W 250 ML IV ONE (20:45)
[2017-06-29 21:29] LABS: BASO % 0.3 % (0.0-1.0); EOS # 0.1 10^3/uL (0.0-0.50); EOS % 1.6 % (0.0-3.0); IMMATURE GRANULOCYTE % 0.3 % (0-0); LYMPH # 1.1 10^3/uL (1.5-4.5); LYMPH % 16.5 % (24.0-44.0); MEAN CORPUSCULAR HEMOGLOBIN 28.4 pg (27.0-33.0); MEAN CORPUSCULAR HGB CONC 32.7 g/dl (32.0-36.5); MEAN CORPUSCULAR VOLUME 86.8 fl (80.0-96.0); MONO # 0.6 10^3/uL (0.0-0.8); MONO % 8.6 % (0.0-5.0); NEUTROPHILS # 4.9 10^3/uL (1.8-7.7); NEUTROPHILS % 72.7 % (36.0-66.0); PLATELET COUNT, AUTOMATED 196 10^3/uL (150-450); RED CELL DISTRIBUTION WIDTH 14.8 % (11.5-14.5); WHITE BLOOD COUNT 6.7 10^3/uL (4.0-10.0)
[2017-06-29 21:46] LABS: CREATININE FOR GFR 4.13 MG/DL (0.70-1.30); GLOMERULAR FILTRATION RATE 15.5 (>49); POTASSIUM SERUM 3.7 MEQ/L (3.5-5.1)
[2017-06-29] MEDS ORDERED: FURO80TA2 PO (21:47)
[2017-06-29] MEDS ORDERED: NEPHTAB PO (21:47)
[2017-06-29] MEDS ORDERED: RENV2.4P PO (21:47)
[2017-06-29] MEDS ORDERED: APAP325T4 PO (21:48)
[2017-06-29 21:53] LABS: ERYTHROCYTE SEDIMENTATION RATE 23 mm/hr (0-20)
[2017-06-29] MEDS ORDERED: DOXY100C37 PO (23:33)
[2017-06-29] MEDS ORDERED: KEFL500C17 PO (23:33)
[2017-06-30 00:11] VITALS: BP 134/72
--- NOTE | 2017-06-30 07:49 | REP ---
Clinical: Pain. Technique: AP, lateral, bilateral oblique views of the right foot. Findings: Advanced osteopenia and primarily mid/hind foot arthritic degenerative changes are appreciated including diffuse heterogeneity, subcortical cystic changes, and joint space narrowing. No acute fracture dislocation. Extensive vascular calcifications noted. Lateral view best demonstrates swelling over the metatarsal region. Surrounding soft tissues without subcutaneous emphysema or radiodense foreign body. Impression: Advanced osteopenia and degenerative changes primarily involving the mid foot. Moderate swelling. Diffuse vascular calcifications raise the possibility of underlying atherosclerotic disease and diabetes. Signed by Barber Bowers MD 06/30/2017 07:41 A
== END 2017-06-30 00:33 | disposition left against medical advice (07) ==
LOC: M ED 19:31
DX: S91.111A Laceration without foreign body of right great toe without damage to nail, initial encounter (principal); L03.031 Cellulitis of right toe; E11.9 Type 2 diabetes mellitus without complications; I12.0 Hypertensive chronic kidney disease with stage 5 chronic kidney disease or end stage renal disease; N18.6 End stage renal disease; Z99.2 Dependence on renal dialysis; Z98.84 Bariatric surgery status; X58.XXXA Exposure to other specified factors, initial encounter; Y92.89 Other specified places as the place of occurrence of the external cause; Y93.89 Activity, other specified; Y99.9 Unspecified external cause status
CPT/HCPCS: 36415; 73630; 80048; 83605; 85025; 85652; 86140; 87040; 96365; 96366; 96368; 99284; J2543; J3370

== ENCOUNTER 2017-07-02 09:25 | Emergency (ER) | payer MEDICARE ==
[~2017-07-02] VITALS: Ht 172.7 cm; Wt 81.8 kg
[2017-07-02 10:20] LABS: BASO % 0.2 % (0.0-1.0); EOS # 0.1 10^3/uL (0.0-0.50); EOS % 1.1 % (0.0-3.0); IMMATURE GRANULOCYTE % 0.4 % (0-0); LYMPH # 0.9 10^3/uL (1.5-4.5); LYMPH % 10.1 % (24.0-44.0); MEAN CORPUSCULAR HGB CONC 33.3 g/dl (32.0-36.5); MEAN CORPUSCULAR VOLUME 87.1 fl (80.0-96.0); MONO # 0.9 10^3/uL (0.0-0.8); MONO % 10.8 % (0.0-5.0); NEUTROPHILS # 6.6 10^3/uL (1.8-7.7); NEUTROPHILS % 77.4 % (36.0-66.0); PLATELET COUNT, AUTOMATED 187 10^3/uL (150-450); RED CELL DISTRIBUTION WIDTH 14.8 % (11.5-14.5); WHITE BLOOD COUNT 8.5 10^3/uL (4.0-10.0)
[2017-07-02 10:39] LABS: ALBUMIN 3.1 GM/DL (3.2-5.2); ALBUMIN/GLOBULIN RATIO 0.82 (1.00-1.93); BILIRUBIN,DIRECT 0.4 MG/DL (0.0-0.2); BILIRUBIN,TOTAL 0.9 MG/DL (0.2-1.0); CALCIUM LEVEL 9.4 MG/DL (8.8-10.2); CREATININE FOR GFR 4.54 MG/DL (0.70-1.30); GLOMERULAR FILTRATION RATE 13.9 (>49); POTASSIUM SERUM 4.2 MEQ/L (3.5-5.1); TOTAL PROTEIN 6.9 GM/DL (6.4-8.2)
[2017-07-02 10:47] LABS: ERYTHROCYTE SEDIMENTATION RATE 29 mm/hr (0-20)
[2017-07-02] MEDS ORDERED: PROT1TAB2 PO (11:04)
[2017-07-02 11:08] VITALS: BP 152/79
--- NOTE | 2017-07-02 11:35 | REP ---
ABDOMINAL SERIES: Supine and erect views of the abdomen and pelvis demonstrate no free air. There is no compelling evidence for small bowel obstruction. There are diffuse vascular calcifications in the abdomen and pelvis. There are degenerative changes of the spine. An accompanying view of the chest demonstrates chronic small effusions with mild bibasilar atelectasis/infiltrate. The heart is not significantly enlarged. IMPRESSION: No free air or obstruction. Chronic small effusions and mild bibasilar atelectasis/infiltrate. Signed by Saul Aquino MD 07/02/2017 01:53 P
--- NOTE | 2017-07-03 07:45 | ED PDOC ---
Post-Departure Follow-Up radiology report faxed to Carmen Taylor MD Jul 03, 2017 07:45
== END 2017-07-02 11:18 | disposition home or self-care (01) ==
LOC: M ED 09:25
DX: L03.115 Cellulitis of right lower limb (principal); K92.2 Gastrointestinal hemorrhage, unspecified; E11.9 Type 2 diabetes mellitus without complications; N18.6 End stage renal disease; Z99.2 Dependence on renal dialysis; G47.30 Sleep apnea, unspecified; K92.1 Melena; F31.9 Bipolar disorder, unspecified; Z98.84 Bariatric surgery status; Z79.4 Long term (current) use of insulin; Z79.899 Other long term (current) drug therapy; Z88.8 Allergy status to other drugs, medicaments and biological substances
CPT/HCPCS: 74022; 80048; 80076; 85025; 85652; 86140; 99283; G0463

== ENCOUNTER → 2017-07-02 | Outpatient (REF) | payer MEDICARE ==
[~2017-07-02] MED LIST changes: +APAP325T4 PO; +DOXY100C37 PO; +KEFL500C17 PO; +NEPHTAB PO; +TORS100T PO
== END ==
LOC: M SFHCPLAZ 09:12
PROVIDERS: ATTEND Family Medicine
DX: L03.115 Cellulitis of right lower limb (principal); K92.1 Melena; Z53.21 Procedure and treatment not carried out due to patient leaving prior to being seen by health care provider

== ENCOUNTER → 2017-07-14 | Outpatient (CLI) | payer MEDICARE ==
[2017-07-14 13:34] LABS: BASO # 0.1 10^3/uL (0.0-0.2); BASO % 0.7 % (0.0-1.0); EOS # 0.1 10^3/uL (0.0-0.50); EOS % 1.1 % (0.0-3.0); IMMATURE GRANULOCYTE % 0.1 % (0-0); LYMPH % 13.6 % (24.0-44.0); MEAN CORPUSCULAR HGB CONC 32.5 g/dl (32.0-36.5); MEAN CORPUSCULAR VOLUME 89.2 fl (80.0-96.0); MONO # 0.6 10^3/uL (0.0-0.8); MONO % 7.6 % (0.0-5.0); NEUTROPHILS # 5.8 10^3/uL (1.8-7.7); NEUTROPHILS % 76.9 % (36.0-66.0); PLATELET COUNT, AUTOMATED 245 10^3/uL (150-450); RED CELL DISTRIBUTION WIDTH 14.7 % (11.5-14.5); WHITE BLOOD COUNT 7.5 10^3/uL (4.0-10.0)
[2017-07-14 14:06] LABS: ERYTHROCYTE SEDIMENTATION RATE 41 mm/hr (0-20)
--- NOTE | 2017-07-14 15:41 | REP ---
Right foot four views: Comparison is 06/29/2017. Soft tissue edema over the dorsum, as previously. There are no lytic, blastic or destructive skeletal changes. There is diffuse demineralization as previously. There is joint space narrowing and osteoarthritis at the [facility] articulations as previously. There is calcified atheroma. No radiopaque foreign body. Impression: Soft tissue edema over the dorsum. Osteoarthritis. No change from prior study. No lytic, blastic or destructive skeletal changes. Signed by Saul Pace MD 07/14/2017 03:33 P
== END ==
LOC: M LAB 12:46
PROVIDERS: ATTEND Family Medicine
DX: L97.519 Non-pressure chronic ulcer of other part of right foot with unspecified severity (principal); E11.621 Type 2 diabetes mellitus with foot ulcer; M19.071 Primary osteoarthritis, right ankle and foot; R60.0 Localized edema; N18.5 Chronic kidney disease, stage 5; E11.22 Type 2 diabetes mellitus with diabetic chronic kidney disease; Z99.2 Dependence on renal dialysis

== ENCOUNTER → 2017-07-16 | Outpatient (REF) | payer MEDICARE ==
[~2017-07-16] MED LIST changes: +CEPH500T PO; +PERCOCET PO; +VITMTA PO
== END ==
LOC: M LAB REF 16:20
PROVIDERS: ATTEND Surgery
DX: E11.621 Type 2 diabetes mellitus with foot ulcer (principal); L97.514 Non-pressure chronic ulcer of other part of right foot with necrosis of bone
CPT/HCPCS: 11044; 85652; 86140; 87070; 87077; 87186; 88305; G0463

== ENCOUNTER 2017-07-22 11:16 | Inpatient (IN) | payer MEDICARE ==
[~2017-07-22] VITALS: Ht 172.7 cm; Wt 86.0 kg
[~2017-07-22 11:16] MED LIST changes: -CEPH500T PO; -PERCOCET PO; -VITMTA PO
[2017-07-22] MEDS ORDERED: ONDANSETRON 4MG/2ML VIAL (J2405) IV PRN (13:30)
[2017-07-22 14:02] LABS: BASO % 0.4 % (0.0-1.0); EOS # 0.1 10^3/uL (0.0-0.50); EOS % 0.6 % (0.0-3.0); IMMATURE GRANULOCYTE % 0.3 % (0-0); LYMPH % 11.9 % (24.0-44.0); MEAN CORPUSCULAR HEMOGLOBIN 28.9 pg (27.0-33.0); MEAN CORPUSCULAR HGB CONC 31.6 g/dl (32.0-36.5); MEAN CORPUSCULAR VOLUME 91.6 fl (80.0-96.0); MONO # 0.6 10^3/uL (0.0-0.8); MONO % 7.6 % (0.0-5.0); NEUTROPHILS # 6.3 10^3/uL (1.8-7.7); NEUTROPHILS % 79.2 % (36.0-66.0); PLATELET COUNT, AUTOMATED 267 10^3/uL (150-450); RED CELL DISTRIBUTION WIDTH 15.8 % (11.5-14.5)
[2017-07-22 14:14] LABS: INR 0.98
[2017-07-22] MEDS ORDERED: CEPH500T PO (14:30)
[2017-07-22 14:36] LABS: CREATININE FOR GFR 4.45 MG/DL (0.70-1.30); GLOMERULAR FILTRATION RATE 14.3 (>49); POTASSIUM SERUM 4.1 MEQ/L (3.5-5.1)
[2017-07-22] MEDS ORDERED: DEXTROSE 50% 50 ML SYRINGE IV PRN (14:45)
[2017-07-22] MEDS ORDERED: GLUCAGON FOR INJ 1 MG VIAL (J1610) SC PRN (14:45)
[2017-07-22] MEDS ORDERED: GLUCOSE 4 GM CHEW TABLET PO PRN (14:45)
[2017-07-22] MEDS: HumaLOG INSULIN (NovoLOG) PER UNIT SC SCH ×4 (14:45→23:45)
[2017-07-22] MEDS ORDERED: PANT40TA2 PO (14:46)
[2017-07-22] MEDS ORDERED: TORS100T PO (14:46)
[2017-07-22] MEDS ORDERED: VITMTA PO (14:46)
[2017-07-22] MEDS ORDERED: SUCR1TA PO (14:46)
[2017-07-22] MEDS ORDERED: RENV2.4P PO (14:46)
[2017-07-22] MEDS ORDERED: PIPERACILLIN/TAZOBACTAM SOD 3.375 GM in APPROPRIATE DILUENT 1 EA IV SCH (15:00)
[2017-07-22 15:08] VITALS: BP 136/79
[2017-07-22] MEDS ORDERED: PANTOPRAZOLE 40MG TAB (PROTONIX) PO PRN (16:00)
[2017-07-22] MEDS ORDERED: SUCRALFATE 1 GM TAB PO PRN (16:00)
--- NOTE | 2017-07-22 16:26 | CR.PDOC ---
[facility] Consultation Consultation DATE OF CONSULTATION: 07/22/17 PRIMARY CARE PHYSICIAN: Sherwin Davies DO REFERRING PROVIDER: Ishmael Molina MD ATTENDING PHYSICIAN: Ishmael Molina MD REASON FOR CONSULTATION/CHIEF COMPLAINT: ESRD on hemodialysis. HISTORY OF PRESENT ILLNESS: Mr. Rico is a 66-year-old male who presents to [facility] as a direct admission from the wound center for wet gangrene of the right foot digit. Nephrology has been consulted for management of patient's ESRD on hemodialysis. Past medical history is significant for: diabetes mellitus, diabetic neuropathy , diabetic nephropathy, osteomyelitis, end-stage renal disease on hemodialysis MWF, gastroesophageal reflux disease, depression, dyslipidemia, hypertension, obstructive sleep apnea, and secondary hyperparathyroidism from ESRD. Patient states that he was in his usual state of health until approximately three weeks ago when his was taking off the sock on his right foot when she noticed that his toe was black and had "split open." Patient has neuropathy of his bilateral feet as was unaware of the injury to his toe. He made an appointment with the wound center where he was evaluated and states that his toe was "cleaned." Patient had a follow-up appointment on 07/25/17, but his noticed this morning that the toe was not doing any better and had actually worsened. They called the wound center where an opening was available for this morning. Upon presentation to the wound center, the patient was instructed to present for direct admission to the hospital to be further evaluated by the vascular surgeon. Wound center encounter: 66-year-old neuropathic diabetic male with long- standing adequately controlled with a hemoglobin A1c of 5.9. He is on dialysis and recently obtained new diabetic shoes. Within 2 weeks of changing his shoes he developed a blister involving the plantar surface of his right great toe which progressed to wet gangrene he was seen by his family practice physician who placed him on oral antibiotic therapy and referred him to our clinic. When seen the patient has an advanced Carrillo grade 3 diabetic foot ulcer which has required extensive debridement. He was instructed to be at strict bedrest not where the prior shoes and avoid any ambulation at this time. He will be referred to the body welder for appropriate footwear. A vascular evaluation has been ordered an additional blood work obtained. I discussed this case in detail with the patient and his alerting them to the fact that he may eventually require an amputation of the right great toe. Hyperbaric oxygen therapy was also discussed with the patient. When the patient was evaluated today there has been further progression of his ischemic gangrene. Bone debridement pathology report consistent with osteomyelitis. As no vascular studies could be obtained I discussed the case with Dr. Molina our vascular surgeon and told him that in my opinion the patient should be a direct admit to the hospital today, and would require an arteriogram with possible angioplasty if indicated for limb salvage. I also told Dr. Molina and the patient that in my opinion an open amputation of the right great toe was indicated. With that in mind the patient will be sent to admissions at [facility] today for a direct admission under Dr. Molina's service. Patient was assured that his dialysis will continue without interruption. Patient admits to numbness in the bilateral lower feet and chronic peripheral edema. States that he does still make urine. No acute complaints and denies shortness of breath, chest pain, fever, night sweats, chills, abdominal pain, constipation, diarrhea. Initial laboratory evaluation reveal chronic kidney disease stage III, some elevation in the blood glucose level, and very mild anemia. Vascular surgery will be performing an angiogram. Regularly scheduled dialysis days are MWF. ALLERGIES: Please see below. HOME MEDICATIONS: Please see below. PAST MEDICAL HISTORY: 1. Diabetes mellitus 2. Diabetic neuropathy 3. End-stage renal disease on hemodialysis 4. Gastroesophageal reflux disease 5. Depression 6. Dyslipidemia 7. Hypertension 8. Obstructive sleep apnea 9. Secondary hyperparathyroidism PAST SURGICAL HISTORY: 1. Gastric bypass 2. Bilateral shoulder surgery for spurs 3. Bilateral cataract surgery 4. Blepharoplasty 5. Umbilical hernia repair 6. Right arm port placement and replacement 7. Colonoscopy FAMILY HISTORY: Father: , 72, Staphylococcus septicemia, AAA Mother: , 82, CABG x3, heart disease Siblings: Seven - 5 siblings are alive - 2 siblings are Children: Three - Son, alive, 40 - Son, alive, 37 - Daughter, alive, 35, Grave's disease SOCIAL HISTORY: Marital status and/or living arrangements: Children: Three adult children - Sons x2 - Daughter Tobacco use: Denies ETOH: Former heavy alcohol user Illicit drug use: Denies IV drug use: Denies REVIEW OF SYSTEMS: CONSTITUTIONAL: Denies fever, night sweats, chills HEENT: Denies headache, acute changes to vision or hearing. CARDIOVASCULAR: Admits to chronic peripheral edema; denies chest pain, palpitations. RESPIRATORY: Denies shortness of breath, wheeze. GENITOURINARY: Still makes urine; denies hematuria, dysuria, urinary urgency or frequency. MUSCULOSKELETAL: Denies weakness. GASTROINTESTINAL: Denies nausea, vomiting, abdominal pain, constipation, diarrhea. SKIN: Admits to right great toe gangrene. NEUROLOGICAL: Admits to chronic bilateral lower extremity numbness. PSYCHIATRIC: Mood is stable. ENDOCRINE: Denies weight changes. HEMATOLOGIC/LYMPHATIC: Denies epistaxis, hematemesis, hemoptysis, melena, hematochezia. ALLERGIC/IMMUNOLOGIC: Denies lymphadenopathy. PHYSICAL EXAMINATION: VITAL SIGNS: Please see below. GENERAL APPEARANCE: male, well nourished, well developed, appears stated age, no acute distress. HEENT: Atraumatic, normocephalic, PERRL, EOMI, oral mucosa appears pink and moist, nasal septum appears midline, nares are patent, wearing a baseball cap. RESPIRATORY: Clear to auscultation bilaterally, adequate inspiratory and expiratory airway excursion, no wheeze, rhonchi, crackles. CARDIOVASCULAR: Regular rate and rhythm, normal S1 and S2, no murmur, rub, click. ABDOMEN: Soft, non-tender, non-distended, bowel sounds appreciated. EXTREMITIES: +3-4 pitting edema appreciated in the bilateral lower extremities, somewhat right lower extremity erythema. NEUROLOGICAL: CN II-XII grossly intact. PSYCHIATRIC: Alert and conversant, pleasant. LABORATORY DATA: Please see below. ASSESSMENT/PLAN: Mr. Rico is a 66-year-old male with a past medical history is significant for diabetes mellitus, diabetic neuropathy, diabetic nephropathy, osteomyelitis, end-stage kidney disease on hemodialysis MWF, gastroesophageal reflux disease, depression, dyslipidemia, hypertension, obstructive sleep apnea, and secondary hyperparathyroidism from ESRD presents with wet gangrene of the right great toe. Nephrology has been consulted for management of ESRD on hemodialysis. 1. Wet gangrene of right great toe: Evaluated by vascular surgery for angiogram and possible amputation depending on results of angiogram. Patient is currently NPO until procedure is performed. Remains on Zosyn empirically. 2. ESRD on hemodialysis: Patient's regular dialysis days are MWF. Received hemodialysis yesterday. Appropriate to continue with hemodialysis tomorrow. Depending on when angiogram takes place, still appropriate for patient to receive hemodialysis on regular schedule. Continue with Torsemide 100mg orally daily to maintain fluid balance. Monitor I/Os. 3. Hyperphosphatemia: Secondary to ESRD. Patient takes Renvela outpatient. Will start Fosrenol while admitted. Obtaining a phosphorous level. 4. Diabetes mellitus with diabetic neuropathy: Since patient is NPO for procedure, patient will have fingersticks every six hours with sliding scale insulin and hypoglycemic protocol. Continue with Gabapentin for diabetic neuropathy. 5. Gastroesophageal reflux disease: Continue with Protonix and Sucralfate. DISPOSITION: Will continue to follow along while this patient is admitted for management of ESRD on hemodialysis. Thank you for consult. Laboratory Data Labs 24H Laboratory Tests 2 07/22/17 13:54: Immature Granulocyte % (Auto) 0.3H, White Blood Count 8.0, Red Blood Count 3.94L , Hemoglobin 11.4L, Hematocrit 36.1L, Mean Corpuscular Volume 91.6, Mean Corpuscular Hemoglobin 28.9, Mean Corpuscular Hemoglobin Concent 31.6L, Red Cell Distribution Width 15.8H, Platelet Count 267, Neutrophils (%) (Auto) 79.2H , Lymphocytes (%) (Auto) 11.9L, Monocytes (%) (Auto) 7.6H, Eosinophils (%) (Auto ) 0.6, Basophils (%) (Auto) 0.4, Neutrophils # (Auto) 6.3, Lymphocytes # (Auto) 1.0L, Monocytes # (Auto) 0.6, Eosinophils # (Auto) 0.1, Basophils # (Auto) 0.0, Immature Granulocyte # (Auto) 0.0, Nucleated Red Blood Cells % (auto) 0.0, Prothrombin Time 13.1, Prothromb Time International Ratio 0.98, Activated Partial Thromboplast Time 35.2, Anion Gap 10, Glomerular Filtration Rate 14.3L, Blood Urea Nitrogen 38H, Creatinine 4.45H, Sodium Level 139, Potassium Level 4.1 , Chloride Level 96L, Carbon Dioxide Level 33H, Calcium Level 9.0 07/22/17 14:12: Bedside Glucose (Misc Panel) 151H CBC/BMP Laboratory Tests 07/22/17 13:54 Red Blood Count 3.94 L, Mean Corpuscular Volume 91.6, Mean Corpuscular Hemoglobin 28.9, Mean Corpuscular Hemoglobin Concent 31.6 L, Red Cell Distribution Width 15.8 H, Neutrophils (%) (Auto) 79.2 H, Lymphocytes (%) (Auto ) 11.9 L, Monocytes (%) (Auto) 7.6 H, Eosinophils (%) (Auto) 0.6, Basophils (%) (Auto) 0.4, Neutrophils # (Auto) 6.3, Lymphocytes # (Auto) 1.0 L, Monocytes # ( Auto) 0.6, Eosinophils # (Auto) 0.1, Basophils # (Auto) 0.0, Calcium Level 9.0 Allergies Coded Allergies: Metformin (Verified Adverse Reaction, Severe, Heart Failure, 07/02/17) Rosiglitazone (Verified Adverse Reaction, Severe, Heart Failure, 07/02/17) Home Medications Scheduled (Sertraline HCl) 50 Mg Tab, 50 MG PO DAILY, (Reported) Cephalexin Monohydrate (Cephalexin) 500 Mg Tab, 500 MG PO ASDIRECTED, (Reported) TAKES ON DIALYSIS DAYS, FRIDAY, FRIDAY AND FRIDAY Insulin Glargine (Lantus) 100 Unit/Ml Inj, 1 DOSE SC BID, (Reported) SLIDING SCALE USUALLY 8 TO 12 UNITS Multivitamins *[facility] STOCKED* (Thera M Plus *[facility] STOCKED*) 1 Tab Tab, 1 TAB PO DAILY, (Reported) Sevelamer Carbonate (Renvela Oral Suspension) 2.4 Gm Ron, 4.8 GM PO WM, ( Reported) Torsemide (Torsemide) 100 Mg Tab, 100 MG PO DAILY, (Reported) Scheduled PRN Gabapentin (Gabapentin) 100 Mg Cap, 100 MG PO BID PRN for PAIN, (Reported) Pantoprazole Sodium (Pantoprazole Sodium) 40 Mg Tab, 40 MG PO DAILY PRN for HEARTBURN, (Reported) Sucralfate (Carafate) 1 Gm Tab, 1 GM PO ACHS PRN for ULCER, (Reported) ELLIOTT JACOBSEN DO Jul 22, 2017 15:36
[2017-07-22 16:40] LABS: PHOSPHORUS LEVEL 5.8 MG/DL (2.5-4.9)
[2017-07-22] MEDS ORDERED: PROTAMINE SULF INJ 50 MG/5 ML VIAL (J2720) As Ordered ONE (17:50)
[2017-07-22] MEDS ORDERED: MIDAZOLAM INJ 2 MG/2 ML VIAL (J2250) As Ordered ONE (17:50)
[2017-07-22] MEDS ORDERED: fentaNYL 100 MCG/2 ML INJECTION (J3010) As Ordered ONE (17:50)
[2017-07-22] MEDS ORDERED: ISOVUE-300 61% 50ML VIAL (Q9967) As Ordered ONE (17:51)
[2017-07-22] MEDS ORDERED: HEPARIN 1,000 UNITS/ML 10ML VIAL (FOR RADIOLOGY& DIALYSIS ONLY) As Ordered ONE (17:51)
[2017-07-22 19:10] VITALS: BP 143/70
[2017-07-22] MEDS: PIPERACILLIN/TAZOBACTAM SOD 3.375 GM in APPROPRIATE DILUENT 1 EA IV SCH (19:31)
[2017-07-22] MEDS: LANTHANUM CARBONATE 500 MG CHEW TABLET PO SCH (19:31)
[2017-07-22 19:40] VITALS: BP 157/78
[2017-07-22 20:10] VITALS: BP 144/68
[2017-07-22] MEDS: DOCUSATE SODIUM 100 MG CAP PO SCH (20:38)
[2017-07-22 20:40] VITALS: BP 128/63
[2017-07-23] MEDS: PIPERACILLIN/TAZOBACTAM SOD 3.375 GM in APPROPRIATE DILUENT 1 EA IV SCH ×3 (01:32→18:02)
[2017-07-23 06:00] VITALS: BP 129/60
[2017-07-23] MEDS: HumaLOG INSULIN (NovoLOG) PER UNIT SC SCH ×4 (06:30→21:00)
[2017-07-23] MEDS: LANTHANUM CARBONATE 500 MG CHEW TABLET PO SCH ×3 (06:32→18:02)
[2017-07-23] MEDS: GABAPENTIN 100 MG CAP PO PRN (06:32)
[2017-07-23] MEDS: DOCUSATE SODIUM 100 MG CAP PO SCH ×2 (06:32→21:00)
[2017-07-23 07:06] LABS: CALCIUM LEVEL 8.7 MG/DL (8.8-10.2); CREATININE FOR GFR 5.05 MG/DL (0.70-1.30); GLOMERULAR FILTRATION RATE 12.3 (>49); POTASSIUM SERUM 4.2 MEQ/L (3.5-5.1)
[2017-07-23] MEDS: SERTRALINE HCL 50 MG TAB PO SCH (07:59)
[2017-07-23] MEDS: MULTIVITAMINS/MINERALS THERAP 1 TAB PO SCH (07:59)
[2017-07-23] MEDS: TORSEMIDE 100 MG TAB PO SCH (07:59)
[2017-07-23 14:00] VITALS: BP 123/57
[2017-07-23] MEDS ORDERED: HEPARIN 1,000 UNITS/ML 10ML VIAL (FOR RADIOLOGY& DIALYSIS ONLY) IV ONE (14:15)
[2017-07-23] MEDS ORDERED: LIDOCAINE 1% SDV 5 ML VIAL SQ ONE (14:15)
[2017-07-23] MEDS ORDERED: DEXTROSE 50% 50 ML SYRINGE IV PRN (14:45)
[2017-07-23] MEDS ORDERED: GLUCAGON FOR INJ 1 MG VIAL (J1610) SC PRN (14:45)
[2017-07-23] MEDS ORDERED: GLUCOSE 4 GM CHEW TABLET PO PRN (14:45)
[2017-07-23 22:00] VITALS: BP 129/76
[2017-07-24] MEDS: GABAPENTIN 100 MG CAP PO PRN (03:49)
--- NOTE | 2017-07-24 03:49 | IPN ---
DATE OF SERVICE: 07/23/2017 SUBJECTIVE: Patient was seen and examined at the bedside today morning. Patient is afebrile, hemodynamically stable. Patient reports that he got the angiogram done yesterday and his right foot big toe amputation is tentatively planned for tomorrow and today is patient's day of dialysis. REVIEW OF SYSTEMS: Patient denies any fever, chills, rigors, headache, nausea, vomiting, chest pain, shortness of breath, pain abdomen, constipation, diarrhea. He does report right foot big toe gangrene and ulcer. Otherwise, rest of review of systems is negative. OBJECTIVE: Vital signs: Temperature is 97.3 degrees Fahrenheit. Blood pressure is 129/60. Pulse is 88. Respiratory rate of 18, saturating 93% on room air. Intake and output: Urine output recorded as 150 mL so far today since overnight. Weight on the bed scale is 90.1 kg. PHYSICAL EXAMINATION: General: Patient is awake, alert, oriented times three, sitting on the sofa, no apparent distress. Head and neck exam: Extraocular muscles intact. Pupils equally round and reactive to light. Mucous membranes are moist. Neck is supple. There is no jugular venous distention (JVD). Cardiovascular: S1, S2, regular rate. No murmur, rub or gallop. Respiratory: Chest is clear to auscultation bilaterally. Bilateral equal air entry. No rales or rhonchi. Abdomen: Soft, positive bowel sounds, nontender. No ascites. No organomegaly. Musculoskeletal: Patient has 3+ pitting edema of the bilateral lower extremities up to his thighs and he has dressing on the right foot because of right big toe gangrene. Central nervous system ([employer]): No focal neurological deficit. Power is 5/5 in all extremities. Psychiatric: Normal mood and affect. LABORATORY REVIEW: CBC showed a WBC of 8, hemoglobin 11.4, platelets were 267. BMP this morning showed a sodium of 135, potassium 4.2, chloride 96, bicarbonate 27, BUN 45, creatinine 5, calcium 8.7. CURRENT INPATIENT MEDICATIONS: Patient's medications were all reviewed by me. He continues to be on intravenous (IV) Zosyn. I have decreased the Zosyn dose according to patient's glomerular filtration rate (GFR). I have stopped sucralfate because fdc use of Carafate can cause aluminum toxicity in renal failure patients. ASSESSMENT: 66-year-old male with past medical history of end-stage renal disease on hemodialysis, diabetes mellitus type 2, hypertension, obstructive sleep apnea, admitted this time because of gangrene of the right big toe. PLAN: 1. End-stage renal disease on hemodialysis. Today is patient's regular day of dialysis. Patient will be dialyzed today in the afternoon and 2.5 liters of ultrafiltration will be done as tolerated by his blood pressure. 2. Gangrene of the right big toe. Patient got the angiogram done yesterday. Patient continues to be on Zosyn. Zosyn dose has been changed to 2.25 grams intravenously (IV) every 12 hours because of end-stage renal disease. Patient will possibly get amputation done tomorrow morning. 3. Lower extremity edema. I shall try to optimize patient's volume status with hemodialysis. I would also continue patient's home dose of torsemide 100 mg by mouth daily. 4. Gastroesophageal reflux disease. Continue current dose of Protonix. Sucralfate has been held because of risk of aluminum toxicity. 5. Insulin-dependent diabetes. Continue current dose of insulin sliding scale. Hold insulin sliding scale when patient is nothing by mouth. 6. Chronic kidney disease mineral bone disease. Patient is on Renvela as outpatient. During this hospitalization, patient is getting lanthanum. When he is discharged, he will be restarted on home dose of Renvela. 7. Anemia in end-stage renal disease. Hemoglobin is 11.4, which is optimal. No need of Aranesp administration at this time.
[2017-07-24] MEDS: PIPERACILLIN/TAZOBACTAM SOD 2.25 GM in APPROPRIATE DILUENT 1 EA IV SCH ×2 (05:31→17:43)
[2017-07-24 06:00] VITALS: BP 141/66
[2017-07-24 07:13] LABS: CALCIUM LEVEL 6.7 MG/DL (8.8-10.2); CREATININE FOR GFR 3.24 MG/DL (0.70-1.30); GLOMERULAR FILTRATION RATE 20.6 (>49); POTASSIUM SERUM 3.3 MEQ/L (3.5-5.1)
[2017-07-24] MEDS: LANTHANUM CARBONATE 500 MG CHEW TABLET PO SCH ×3 (07:58→17:01)
[2017-07-24] MEDS: MULTIVITAMINS/MINERALS THERAP 1 TAB PO SCH (08:00)
[2017-07-24] MEDS: TORSEMIDE 100 MG TAB PO SCH (08:00)
[2017-07-24] MEDS: DOCUSATE SODIUM 100 MG CAP PO SCH ×2 (08:00→23:35)
[2017-07-24] MEDS: SERTRALINE HCL 50 MG TAB PO SCH (08:00)
[2017-07-24 08:40] LABS: CALCIUM LEVEL 8.7 MG/DL (8.8-10.2); CREATININE FOR GFR 3.99 MG/DL (0.70-1.30); GLOMERULAR FILTRATION RATE 16.2 (>49); POTASSIUM SERUM 4.3 MEQ/L (3.5-5.1)
[2017-07-24] MEDS: HumaLOG INSULIN (NovoLOG) PER UNIT SC SCH ×4 (09:17→21:00)
--- NOTE | 2017-07-24 11:20 | IPNPDOC ---
Date Seen The patient was seen on 07/24/17. Progress Note SUBJECTIVE: Patient was seen and examined at the bedside this morning. He offers up no complaints. Is preparing for amputation of right great toe with vascular surgery. REVIEW OF SYSTEMS: Patient denies any fever, chills, rigors, headache, nausea, vomiting, chest pain, shortness of breath, pain abdomen, constipation, diarrhea. He does report right foot big toe gangrene and ulcer. Otherwise, rest of review of systems is negative. PHYSICAL EXAMINATION: General: Patient is awake, alert, oriented times three, laying in bed, no apparent distress. Head and neck exam: Extraocular muscles intact. Pupils equally round and reactive to light. Mucous membranes are moist. Neck is supple. There is no jugular venous distention (JVD). Cardiovascular: S1, S2, regular rate. No murmur, rub or gallop. Respiratory: Chest is clear to auscultation bilaterally. Bilateral equal air entry. No rales or rhonchi. Abdomen: Soft, positive bowel sounds, nontender. No ascites. No organomegaly. Musculoskeletal: Patient has 3+ pitting edema of the bilateral lower extremities up to his thighs and he has dressing on the right foot because of right big toe gangrene. Central nervous system (NETWORK AND THREAT SUPPORT SPECIALIST): No focal neurological deficit. Power is 5/5 in all extremities. Psychiatric: Normal mood and affect. LABORATORY REVIEW: See below. CURRENT INPATIENT MEDICATIONS: Patient's medications were all reviewed by myself and my attending. He continues on decreased dose of intravenous (IV) Zosyn based on his GFR. ASSESSMENT: 66-year-old male with past medical history of end-stage renal disease on hemodialysis, diabetes mellitus type 2, hypertension, obstructive sleep apnea, admitted this time because of gangrene of the right big toe. PLAN: 1. End-stage renal disease on hemodialysis: Regular dialysis days are Friday, Friday, Friday. Ultrafiltration of 2500mL yesterday. Tolerated well. Patient still has quite a bit of fluid and we could consider dialyzing patient daily to get patient back to his dry-weight. 2. Gangrene of the right big toe: Zosyn has been renally dosed. Amputation with vascular surgery today. 3. Lower extremity edema: Could consider dialyzing patient daily to optimize patient's volume status. Will continue with patient's home dose of Torsemide 100mg orally daily. 4. Gastroesophageal reflux disease: Continue current dose of Protonix. Discontinued Sucralfate. 5. Insulin-dependent diabetes: Continue current dose of insulin sliding scale. Hold insulin sliding scale when patient is nothing by mouth. 6. Chronic kidney disease mineral bone disease: Patient is on Renvela as outpatient. During this hospitalization, patient is getting lanthanum. When he is discharged, he will be restarted on home dose of Renvela. 7. Anemia in end-stage renal disease. Hemoglobin is 11.4 which was checked on 07/22/17, which is optimal. No need of Aranesp administration at this time. DISPOSITION: Amputation of right great toe scheduled for today. Continue with current hemodialysis schedule. VS, I&O, 24H, Fishbone Vital Signs/I&O Vital Signs Date Time Temp Pulse Resp B/P (MAP) Pulse Ox O2 Delivery O2 Flow Rate FiO2 07/24/17 06:00 98.1 80 18 141/66 (91) 95 Room Air I&O- Last 24 Hours up to 6 AM 07/25/17 06:00 Intake Total 240 ml Output Total 100 ml Balance 140 ml Laboratory Data 24H LABS Laboratory Tests 2 07/23/17 12:06: Bedside Glucose (Misc Panel) 196H 07/23/17 17:55: Bedside Glucose (Misc Panel) 116H 07/23/17 21:01: Bedside Glucose (Misc Panel) 165H 07/23/17 23:56: Bedside Glucose (Misc Panel) 138H 07/24/17 06:03: Anion Gap 45H, Glomerular Filtration Rate 20.6L, Blood Urea Nitrogen 24H, Creatinine 3.24H, Sodium Level 142#, Potassium Level 3.3#L, Chloride Level 75L, Carbon Dioxide Level 22, Calcium Level 6.7#L 07/24/17 07:41: Bedside Glucose (Misc Panel) 106 07/24/17 07:53: Anion Gap 10, Glomerular Filtration Rate 16.2L, Blood Urea Nitrogen 29H, Creatinine 3.99H, Sodium Level 136, Potassium Level 4.3#, Chloride Level 98, Carbon Dioxide Level 28, Calcium Level 8.7#L CBC/BMP Laboratory Tests 07/24/17 06:03 Calcium Level 6.7 #L 07/24/17 07:53 Calcium Level 8.7 #L ELLIOTT JACOBSEN DO Jul 24, 2017 11:20
[2017-07-24 14:00] VITALS: BP 138/70
[2017-07-24 20:00] VITALS: BP 138/72
[2017-07-24] MEDS ORDERED: MIDAZOLAM INJ 2 MG/2 ML VIAL (J2250) As Ordered ONE (21:19)
[2017-07-24] MEDS ORDERED: fentaNYL 100 MCG/2 ML INJECTION (J3010) As Ordered ONE (21:19)
[2017-07-24] MEDS ORDERED: PERCOCET 5MG/325MG TAB PO PRN (22:45)
[2017-07-24] MEDS ORDERED: fentaNYL 100 MCG/2 ML INJECTION (J3010) IV PRN (22:45)
[2017-07-24] MEDS ORDERED: ONDANSETRON 4MG/2ML VIAL (J2405) IV PRN (22:45)
[2017-07-24] MEDS ORDERED: LR 1,000 ML IV SCH (22:45)
[2017-07-24] MEDS ORDERED: METOCLOPRAMIDE INJ 10MG/2ML VIAL (J2765) IV PRN (22:45)
[2017-07-24 22:55] VITALS: BP 158/84
[2017-07-24 23:25] VITALS: BP 143/70
[2017-07-24 23:55] VITALS: BP 126/60
[2017-07-25] VITALS (7 sets, daily range): BP systolic 117–144; BP diastolic 56–89
[2017-07-25] MEDS: PIPERACILLIN/TAZOBACTAM SOD 2.25 GM in APPROPRIATE DILUENT 1 EA IV SCH ×2 (05:47→18:38)
[2017-07-25 06:37] LABS: CALCIUM LEVEL 8.3 MG/DL (8.8-10.2); CREATININE FOR GFR 4.89 MG/DL (0.70-1.30); GLOMERULAR FILTRATION RATE 12.8 (>49); POTASSIUM SERUM 4.7 MEQ/L (3.5-5.1)
[2017-07-25] MEDS: GABAPENTIN 100 MG CAP PO PRN (07:58)
[2017-07-25] MEDS: SERTRALINE HCL 50 MG TAB PO SCH (08:01)
[2017-07-25] MEDS: TORSEMIDE 100 MG TAB PO SCH (08:01)
[2017-07-25] MEDS: MULTIVITAMINS/MINERALS THERAP 1 TAB PO SCH (08:01)
[2017-07-25] MEDS: LANTHANUM CARBONATE 500 MG CHEW TABLET PO SCH ×3 (08:01→18:36)
[2017-07-25] MEDS: DOCUSATE SODIUM 100 MG CAP PO SCH ×2 (08:01→20:09)
[2017-07-25] MEDS: HumaLOG INSULIN (NovoLOG) PER UNIT SC SCH ×4 (08:48→20:49)
[2017-07-25] MEDS: DAKIN'S 0.25% HALF-STRENGTH SOLN 480 ML TOP SCH ×2 (09:00→17:00)
[2017-07-25 09:37] LABS: BASO % 0.9 % (0.0-1.0); EOS # 0.1 10^3/uL (0.0-0.50); EOS % 2.8 % (0.0-3.0); IMMATURE GRANULOCYTE % 0.2 % (0-0); LYMPH # 0.9 10^3/uL (1.5-4.5); LYMPH % 21.8 % (24.0-44.0); MEAN CORPUSCULAR HEMOGLOBIN 29.7 pg (27.0-33.0); MEAN CORPUSCULAR HGB CONC 32.9 g/dl (32.0-36.5); MEAN CORPUSCULAR VOLUME 90.2 fl (80.0-96.0); MONO # 0.2 10^3/uL (0.0-0.8); MONO % 5.2 % (0.0-5.0); NEUTROPHILS # 2.9 10^3/uL (1.8-7.7); NEUTROPHILS % 69.1 % (36.0-66.0); PLATELET COUNT, AUTOMATED 225 10^3/uL (150-450); RED CELL DISTRIBUTION WIDTH 15.9 % (11.5-14.5); WHITE BLOOD COUNT 4.2 10^3/uL (4.0-10.0)
[2017-07-25] MEDS ORDERED: DARBEPOETIN 100 MCG/0.5 ML *DIALYSIS* SYRINGE (J0882) IV SCH (11:15)
[2017-07-25] MEDS ORDERED: LIDOCAINE 1% SDV 5 ML VIAL SQ ONE (11:30)
[2017-07-25] MEDS ORDERED: HEPARIN 1,000 UNITS/ML 10ML VIAL (FOR RADIOLOGY& DIALYSIS ONLY) IV ONE (11:30)
[2017-07-25] MEDS: PERCOCET 5MG/325MG TAB PO PRN (21:00)
[2017-07-26 02:00] VITALS: BP 129/77
[2017-07-26 06:00] VITALS: BP 125/66
[2017-07-26] MEDS: GABAPENTIN 100 MG CAP PO PRN ×2 (06:29→17:58)
[2017-07-26] MEDS: PERCOCET 5MG/325MG TAB PO PRN ×3 (06:29→18:52)
[2017-07-26] MEDS: PIPERACILLIN/TAZOBACTAM SOD 2.25 GM in APPROPRIATE DILUENT 1 EA IV SCH ×2 (06:30→17:58)
[2017-07-26 08:04] LABS: CALCIUM LEVEL 8.9 MG/DL (8.8-10.2); CREATININE FOR GFR 3.98 MG/DL (0.70-1.30); GLOMERULAR FILTRATION RATE 16.2 (>49); POTASSIUM SERUM 4.2 MEQ/L (3.5-5.1)
[2017-07-26] MEDS: MULTIVITAMINS/MINERALS THERAP 1 TAB PO SCH (08:25)
[2017-07-26] MEDS: TORSEMIDE 100 MG TAB PO SCH (08:25)
[2017-07-26] MEDS: HumaLOG INSULIN (NovoLOG) PER UNIT SC SCH ×4 (08:26→20:26)
[2017-07-26] MEDS: DOCUSATE SODIUM 100 MG CAP PO SCH ×2 (08:26→20:25)
[2017-07-26] MEDS: LANTHANUM CARBONATE 500 MG CHEW TABLET PO SCH ×3 (08:26→17:58)
[2017-07-26] MEDS: SERTRALINE HCL 50 MG TAB PO SCH (08:28)
[2017-07-26] MEDS: DAKIN'S 0.25% HALF-STRENGTH SOLN 480 ML TOP SCH ×2 (09:00→17:04)
[2017-07-26 10:00] VITALS: BP 106/54
[2017-07-26] MEDS ORDERED: LIDOCAINE 1% SDV 5 ML VIAL SQ ONE (10:45)
[2017-07-26] MEDS ORDERED: HEPARIN 1,000 UNITS/ML 10ML VIAL (FOR RADIOLOGY& DIALYSIS ONLY) IV ONE (10:45)
[2017-07-26 14:00] VITALS: BP 123/71
--- NOTE | 2017-07-26 15:59 | IPN ---
DATE: 07/25/2017 SUBJECTIVE: Patient was seen and examined at the bedside today morning during hemodialysis procedure. Patient got the right big toe amputation done yesterday. Patient is tolerating the hemodialysis procedure. He is hemodynamically stable. REVIEW OF SYSTEMS: Patient denies any fever, chills, rigors. He denies any chest pain, shortness of breath, pain in abdomen, constipation, or diarrhea. He reports mild pain in the right big toe amputation site and he reports bilateral lower extremity edema. Rest of review of systems is negative. OBJECTIVE: VITAL SIGNS: Temperature is 98.5 degrees Fahrenheit, blood pressure is 117/56, pulse is 90, respiratory rate of 18, saturating 95% on room air. Intake and output: Urine output is not recorded. Weight in the bed scale is 90.9 kg. PHYSICAL EXAMINATION: GENERAL: Patient is awake, alert, oriented times three, laying in the bed getting hemodialysis done. HEAD AND NECK EXAM: Extraocular muscles intact. Pupils equally round and reactive to light. Mucous membranes are moist. Neck is supple. There is no jugular venous distention (JVD). CARDIOVASCULAR: S1, S2, regular rate. No murmur, rub or gallop. RESPIRATORY: Chest is clear to auscultation bilaterally. Bilateral equal air entry. No rales or rhonchi. ABDOMEN: Soft, positive bowel sounds, nontender. No ascites. No organomegaly. MUSCULOSKELETAL: Patient has 3+ pitting edema on the bilateral lower extremities up to his thighs and he has a dressing on the right foot after a recent right big toe amputation. CENTRAL NERVOUS SYSTEM (DREDGE PIPEMAN): No focal neurological deficit. Power is 5/5 in all extremities. PSYCHIATRIC: Normal mood and affect. LABORATORY REVIEW: CBC showed a WBC of 4.2, hemoglobin is 10, platelets are 225. BMP showed sodium 137, potassium 4.7, chloride 99, bicarbonate 26, BUN 36, creatinine 4.89. CURRENT INPATIENT MEDICATIONS: Patient's medications were all reviewed by me. He continues to be on IV Zosyn 2.25 grams every 12 hours. Patient was given a dose of Aranesp 100 mcg IV with hemodialysis today. There is no other change in the medications today as compared with yesterday. ASSESSMENT: 66-year-old male with past medical history of end-stage renal disease on hemodialysis, diabetes mellitus type 2, hypertension, obstructive sleep apnea, admitted at this time because of gangrene of the right big toe. PLAN: 1. End-stage renal disease on hemodialysis. The patient is being dialyzed according to his Friday, Friday, Friday schedule. However, patient has massive edema of the bilateral lower extremities. We shall try to do an ultrafiltration of about 3.5 to 4 liters as tolerated by his blood pressures. 2. Status post amputation of the right big toe. Patient had gangrene of the big toe. Amputation is done. Continue the IV antibitoics, Zosyn 2.25 grams IV every 12 hours. Rest of the management is as per surgical team. 3. Lower extremity edema. Patient has massive edema of the bilateral lower extrmeities. Patient will possibly need another session of ultrafiltration tomorrow. Continue torsemide 100 mg by mouth daily. Ultrafiltration goal is 3.5 to 4 liters today. 4. Insulin-dependent diabetes. Continue current dose of insulin sliding scale. 5. Anemia in end-stage renal disease. Hemoglobin was above 11, however he lost some blood during surgery as well. Hemoglobin is down to 10. He was given a dose of Aranesp 100 mcg IV with hemodialysis.
[2017-07-26 18:00] VITALS: BP 132/59
[2017-07-26 22:00] VITALS: BP 120/56
[2017-07-26] MEDS: NORCO, ANEXSIA 5/325MG TABLET (HYDROcodone/ACETAMINOPHEN) PO PRN (22:53)
[2017-07-27] MEDS: DAKIN'S 0.25% HALF-STRENGTH SOLN 480 ML TOP SCH ×3 (01:00→17:00)
[2017-07-27] MEDS: PERCOCET 5MG/325MG TAB PO PRN ×3 (01:06→18:10)
[2017-07-27 02:00] VITALS: BP 121/58
[2017-07-27] MEDS: PIPERACILLIN/TAZOBACTAM SOD 2.25 GM in APPROPRIATE DILUENT 1 EA IV SCH ×2 (05:51→18:08)
[2017-07-27 05:53] LABS: MEAN CORPUSCULAR HEMOGLOBIN 29.2 pg (27.0-33.0); MEAN CORPUSCULAR HGB CONC 32.2 g/dl (32.0-36.5); MEAN CORPUSCULAR VOLUME 90.6 fl (80.0-96.0); PLATELET COUNT, AUTOMATED 214 10^3/uL (150-450); RED CELL DISTRIBUTION WIDTH 15.7 % (11.5-14.5); WHITE BLOOD COUNT 6.1 10^3/uL (4.0-10.0)
[2017-07-27 06:00] VITALS: BP 123/57
[2017-07-27 06:19] LABS: CALCIUM LEVEL 8.3 MG/DL (8.8-10.2); GLOMERULAR FILTRATION RATE 12.5 (>49); POTASSIUM SERUM 4.1 MEQ/L (3.5-5.1)
[2017-07-27] MEDS: HumaLOG INSULIN (NovoLOG) PER UNIT SC SCH ×4 (07:04→21:00)
[2017-07-27] MEDS: SERTRALINE HCL 50 MG TAB PO SCH (08:34)
[2017-07-27] MEDS: MULTIVITAMINS/MINERALS THERAP 1 TAB PO SCH (08:34)
[2017-07-27] MEDS: DOCUSATE SODIUM 100 MG CAP PO SCH ×2 (08:34→21:18)
[2017-07-27] MEDS: LANTHANUM CARBONATE 500 MG CHEW TABLET PO SCH ×3 (08:35→18:09)
[2017-07-27] MEDS: TORSEMIDE 100 MG TAB PO SCH (08:35)
--- NOTE | 2017-07-27 08:47 | IPN ---
DATE: 07/26/2017 SUBJECTIVE: The patient is seen this morning on hemodialysis, comfortable, in no acute distress. He has no complaints. We scheduled an extra dialysis treatment today in view of his peripheral edema. REVIEW OF SYSTEMS: The patient denies fevers, chills, headaches, nausea, vomiting, chest pain, palpitations, shortness of breath, constipation, diarrhea. The pain in his right foot is currently controlled. Remainder of review of systems is negative. VITAL SIGNS: Temperature 99.1, pulse 81, respiratory rate 18, blood pressure 125/66, saturating 95% on room air. INTAKE AND OUTPUT: Hemodialysis yesterday removed 3500 mL and dialysis today removed 3500 mL. GENERAL: The patient is seen on dialysis. He was sleeping comfortably when I awoke him, and he was in good spirits with no distress. HEAD AND NECK: Extraocular muscles are intact. Moist mucous membranes. Neck is supple. CARDIAC: S1, S2, regular rate. No murmur. There is 3+ pitting edema in the lower extremities which extends up to the thigh and no edema in the upper extremities. RESPIRATORY: Clear to auscultation bilaterally without crackles or rales. ABDOMEN: Soft, nontender. Positive bowel sounds. EXTREMITIES: Pitting edema present in the lower extremity up to the thighs. The left upper extremity has a fistula with thrill and bruit. NEUROLOGIC: There is no focal deficit. PSYCHIATRIC: Appropriate mood and affect. LABORATORY: Sodium 136, potassium 4.2, bicarbonate 30, calcium 8.9. INPATIENT MEDICATIONS: Reviewed by myself. The patient continues on Aranesp 100 mcg IV weekly, and there are no changes in his medications. PROBLEMS: 1. End-stage renal disease, on hemodialysis. The patient's maintenance days are Friday, Friday, Friday. Today, he received an extra session of ultrafiltration in view of his chronic peripheral edema for further correction of his volume status. Goal ultrafiltration (UF) is around 3 kg over 3 hours as tolerated by hemodynamics. 2. Gangrene of the right big toe. The patient is status post amputation and continues to followup with vascular surgery. He is on renally dosed Zosyn. 3. Heart failure with preserved ejection fraction and volume overload. Echo of January 2017 reviewed, which shows grade 2 diastolic dysfunction with left ventricular ejection fraction of about 60%. The patient's volume status is principally regulated through ultrafiltration on dialysis. He is also concurrently on oral diuretics, torsemide 100 mg by mouth daily. He was counseled in regards to fluid restriction. He received an extra session of ultrafiltration today for further correction of his edema. 4. Anemia of end-stage renal disease. The patient's hemoglobin is at goal, and he continue on Aranesp once weekly for a goal hemoglobin of 10-11.
[2017-07-27] MEDS: NORCO, ANEXSIA 5/325MG TABLET (HYDROcodone/ACETAMINOPHEN) PO PRN ×2 (09:25→21:20)
[2017-07-27 10:00] VITALS: BP 99/54
[2017-07-27 14:00] VITALS: BP 124/59
--- NOTE | 2017-07-27 19:05 | IPN ---
DATE: 07/27/2017 SUBJECTIVE: The patient is seen this morning out of bed to the chair, comfortable. He only complains of pain in the right foot. Tolerated his dialysis treatment yesterday without any issues. VITAL SIGNS: Temperature 97.8, pulse 68, respiratory rate 16, blood pressure 99/54, saturating 94% to 98% on room air. Intake and output: Hemodialysis yesterday removed 3500 mL, oral intake was 1640, net negative 1840. There is no weight recorded in the bed scale today. GENERAL: The patient is seen sitting out of bed to the chair, comfortable, in no acute distress. Extraocular muscles are intact. Oral mucosa is moist. Neck is supple. CARDIAC: S1, S2, regular rate. There is 3+ pitting edema chronically in the lower extremities, which extends up to the thigh. RESPIRATORY: Clear to auscultation. Symmetric air entry. No rales or crackles. Comfortable on room air. ABDOMEN: Soft, nontender. Positive bowel sounds. NEUROLOGIC: He is at his baseline mentation. PSYCHIATRIC: Appropriate mood and affect. LABORATORY DATA: White count 6.1, hemoglobin 10.5, sodium 136, potassium 4.1, bicarbonate 26. INPATIENT MEDICATIONS: Reviewed by myself and no change from prior. PROBLEMS: 1. End-stage renal disease on hemodialysis. On a chronic Friday, Friday, Friday maintenance schedule. The patient received an extra ultrafiltration session yesterday in view of his decompensated volume status. His next dialysis will be tomorrow, 07/28/2017, with a goal volume removal of 3.5 kg as tolerated by hemodynamics. He is counseled in regards to fluid restriction. He, as well, continues on daily torsemide. 2. Gangrene of the right big toe. The patient is pending wound closure on 07/29/2017, with Dr. Molina. He continues on Zosyn and local wound care. 3. Diabetes. His glucose has been labile, last evening 336 and this morning 76 on the chemistry. He continues on insulin. 4. History of gastrointestinal (GI) bleed. Sucralfate was discontinued due to concern of aluminum toxicity. The patient continues on Protonix.
[2017-07-27 22:00] VITALS: BP 112/57
[2017-07-28] VITALS (9 sets, daily range): BP systolic 108–147; BP diastolic 58–79
[2017-07-28] MEDS: PERCOCET 5MG/325MG TAB PO PRN ×4 (00:45→20:28)
[2017-07-28] MEDS: DAKIN'S 0.25% HALF-STRENGTH SOLN 480 ML TOP SCH ×3 (00:46→17:00)
[2017-07-28] MEDS: PIPERACILLIN/TAZOBACTAM SOD 2.25 GM in APPROPRIATE DILUENT 1 EA IV SCH ×2 (05:53→18:33)
[2017-07-28] MEDS: DOCUSATE SODIUM 100 MG CAP PO SCH ×2 (06:22→20:27)
[2017-07-28] MEDS: LANTHANUM CARBONATE 500 MG CHEW TABLET PO SCH ×3 (06:23→18:32)
[2017-07-28] MEDS: SERTRALINE HCL 50 MG TAB PO SCH (06:23)
[2017-07-28] MEDS: MULTIVITAMINS/MINERALS THERAP 1 TAB PO SCH (06:23)
[2017-07-28] MEDS: TORSEMIDE 100 MG TAB PO SCH (06:23)
[2017-07-28 06:55] LABS: CALCIUM LEVEL 9.1 MG/DL (8.8-10.2); CREATININE FOR GFR 5.94 MG/DL (0.70-1.30); GLOMERULAR FILTRATION RATE 10.2 (>49); POTASSIUM SERUM 4.2 MEQ/L (3.5-5.1)
[2017-07-28] MEDS: HumaLOG INSULIN (NovoLOG) PER UNIT SC SCH ×4 (07:30→21:00)
[2017-07-28] MEDS ORDERED: HEPARIN 1,000 UNITS/ML 10ML VIAL (FOR RADIOLOGY& DIALYSIS ONLY) IV ONE (11:15)
--- NOTE | 2017-07-28 13:45 | IPNPDOC ---
Date Seen The patient was seen on 07/28/17. Progress Note SUBJECTIVE: The patient is evaluated this morning during dialysis. He is receiving ultrafiltration of 3.5kg as long as his blood pressure is able to tolerate it. He is scheduled for wound closure of his right hallux amputation with vascular surgery today. He offers no complaints and states that his bandage on his right foot is getting changed more frequently and that it has not been as blood-soaked. VITAL SIGNS: See below. GENERAL: The patient is seen and evaluated during hemodialysis this morning, appears comfortable, in no acute distress. Extraocular muscles are intact. Oral mucosa is moist. Neck is supple. CARDIAC: S1, S2, regular rate. There is 3+ pitting edema chronically in the lower extremities, which extends up to the thigh. RESPIRATORY: Clear to auscultation. Symmetric air entry. No rales or crackles. Comfortable on room air. ABDOMEN: Soft, nontender. Positive bowel sounds. NEUROLOGIC: He is at his baseline mentation. PSYCHIATRIC: Appropriate mood and affect. LABORATORY DATA: See below. INPATIENT MEDICATIONS: Reviewed by myself and my attending. No changes have been made. PROBLEMS: 1. End-stage renal disease on hemodialysis: On a chronic Friday, Friday, Friday maintenance schedule. The patient received an extra ultrafiltration session in view of his decompensated volume status. He is currently receiving his regularly scheduled dialysis this morning. The goal is to remove 3.5kg pending hemodynamic stability. Discussed with patient the need to increase his dialysis to 4x week for the next several weeks in order to optimize the chronic lower extremity edema. Patient to remain on a fluid restriction as well as continue with Torsemide 100mg by mouth daily. Receives Fosrenol 1g by mouth with meals and Aranesp during hemodialysis. Hemoglobin is 10.5 this morning, which is an acceptable level. 2. Gangrene of the right big toe: Status-post right hallux amputation. Pending wound closure today, 07/28/17. Continue with Zosyn and local wound care. 3. Diabetes: Fasting blood glucose on labs this morning was 101. Continue with Insulin. 4. History of gastrointestinal (GI) bleed: Sucralfate was discontinued due to concern of aluminum toxicity. The patient continues on Protonix. DISPOSITION: Continue with regularly scheduled hemodialysis. Recommend increasing hemodialysis to 4x weekly in order to optimize peripheral edema. Wound closure later today with vascular surgery. VS, I&O, 24H, Fishbone Vital Signs/I&O Vital Signs Date Time Temp Pulse Resp B/P (MAP) Pulse Ox O2 Delivery O2 Flow Rate FiO2 07/28/17 10:14 Room Air 07/28/17 08:21 20 07/28/17 06:00 97.3 75 131/61 (84) 92 Laboratory Data 24H LABS Laboratory Tests 2 07/27/17 12:04: Bedside Glucose (Misc Panel) 177H 07/27/17 17:27: Bedside Glucose (Misc Panel) 241H 07/28/17 06:31: Anion Gap 11, Glomerular Filtration Rate 10.2L, Blood Urea Nitrogen 48H, Creatinine 5.94H, Sodium Level 133L, Potassium Level 4.2, Chloride Level 97L, Carbon Dioxide Level 25, Calcium Level 9.1 CBC/BMP Laboratory Tests 07/28/17 06:31 Calcium Level 9.1 ELLIOTT JACOBSEN DO Jul 28, 2017 11:57
[2017-07-28] MEDS ORDERED: PROPOFOL 200 MG/20 ML VIAL As Ordered ONE (16:31)
[2017-07-28] MEDS ORDERED: MIDAZOLAM INJ 2 MG/2 ML VIAL (J2250) As Ordered ONE (16:31)
[2017-07-28] MEDS ORDERED: fentaNYL 100 MCG/2 ML INJECTION (J3010) As Ordered ONE (16:55)
[2017-07-28] MEDS ORDERED: fentaNYL 100 MCG/2 ML INJECTION (J3010) IV PRN (17:45)
[2017-07-28] MEDS ORDERED: ONDANSETRON 4MG/2ML VIAL (J2405) IV PRN (17:45)
[2017-07-28] MEDS ORDERED: LR 1,000 ML IV SCH (17:45)
[2017-07-28] MEDS: NORCO, ANEXSIA 5/325MG TABLET (HYDROcodone/ACETAMINOPHEN) PO PRN ×2 (18:32→23:44)
[2017-07-28] MEDS: GABAPENTIN 100 MG CAP PO PRN (20:28)
[2017-07-29] MEDS: DAKIN'S 0.25% HALF-STRENGTH SOLN 480 ML TOP SCH (01:00)
[2017-07-29 02:00] VITALS: BP 119/65
[2017-07-29] MEDS: PERCOCET 5MG/325MG TAB PO PRN ×2 (02:30→08:43)
[2017-07-29] MEDS: NORCO, ANEXSIA 5/325MG TABLET (HYDROcodone/ACETAMINOPHEN) PO PRN (05:11)
[2017-07-29] MEDS: PIPERACILLIN/TAZOBACTAM SOD 2.25 GM in APPROPRIATE DILUENT 1 EA IV SCH (05:11)
[2017-07-29 06:00] VITALS: BP 117/63
[2017-07-29 06:27] LABS: CALCIUM LEVEL 8.6 MG/DL (8.8-10.2); CREATININE FOR GFR 4.69 MG/DL (0.70-1.30); GLOMERULAR FILTRATION RATE 13.4 (>49); POTASSIUM SERUM 4.3 MEQ/L (3.5-5.1)
[2017-07-29] MEDS: HumaLOG INSULIN (NovoLOG) PER UNIT SC SCH (07:30)
[2017-07-29] MEDS: SERTRALINE HCL 50 MG TAB PO SCH (08:41)
[2017-07-29] MEDS: LANTHANUM CARBONATE 500 MG CHEW TABLET PO SCH (08:41)
[2017-07-29] MEDS: MULTIVITAMINS/MINERALS THERAP 1 TAB PO SCH (08:42)
[2017-07-29] MEDS: DOCUSATE SODIUM 100 MG CAP PO SCH (08:42)
[2017-07-29] MEDS: TORSEMIDE 100 MG TAB PO SCH (08:42)
[2017-07-29] MEDS ORDERED: PERCOCET PO (09:01)
--- NOTE | 2017-07-29 11:43 | IPNPDOC ---
Date Seen The patient was seen on 07/29/17. Progress Note SUBJECTIVE: The patient is evaluated this morning at bedside. He is ready to getting to be discharged. He underwent closure of the wound of the right hallux amputation. Renal function is stable. Patient underwent hemodialysis yesterday with successful removal of 3.5kg. He will continue outpatient with regularly scheduled hemodialysis tomorrow. VITAL SIGNS: See below. GENERAL: The patient is seen and evaluated at bedside this morning, getting ready for discharge, appears comfortable, in no acute distress. Extraocular muscles are intact. Oral mucosa is moist. Neck is supple. CARDIAC: S1, S2, regular rate. There is 3+ pitting edema chronically in the lower extremities, which extends up to the thigh. RESPIRATORY: Clear to auscultation. Symmetric air entry. No rales or crackles. Comfortable on room air. ABDOMEN: Soft, nontender. Positive bowel sounds. NEUROLOGIC: He is at his baseline mentation. PSYCHIATRIC: Appropriate mood and affect. LABORATORY DATA: See below. INPATIENT MEDICATIONS: Reviewed by myself and my attending. No changes have been made. PROBLEMS: 1. End-stage renal disease on hemodialysis: On a chronic Friday, Friday, Friday maintenance schedule. Patient will resume his regularly scheduled hemodialysis as an outpatient. Resume home medications of Renvela and Torsemide. 2. Gangrene of the right big toe: Status-post right hallux amputation and subsequent wound closure on 07/28/17. Continue with Cephalexin as prescribed. Patient to follow-up with vascular surgery on 08/13/17 at 13:10. 3. Diabetes: Resume home dosing. 4. History of gastrointestinal (GI) bleed: Continue with home dosing of Protonix and Sucralfate. DISPOSITION: Stable from a renal standpoint. Continue with current outpatient hemodialysis. ATTENDING ADDENDUM: i agree with above, with the exception that pt is discontinued off sucralfate due to ESRD. VS, I&O, 24H, Fishbone Vital Signs/I&O Vital Signs Date Time Temp Pulse Resp B/P (MAP) Pulse Ox O2 Delivery O2 Flow Rate FiO2 07/29/17 08:43 17 Room Air 07/29/17 06:00 98.3 69 117/63 (81) 96 07/28/17 17:15 2 I&O- Last 24 Hours up to 6 AM 07/30/17 06:00 Intake Total 20 ml Output Total 0 ml Balance 20 ml Laboratory Data 24H LABS Laboratory Tests 2 07/28/17 13:17: Bedside Glucose (Misc Panel) 106 07/28/17 16:02: Bedside Glucose (Misc Panel) 105 07/28/17 17:56: Bedside Glucose (Misc Panel) 99 07/28/17 20:59: Bedside Glucose (Misc Panel) 298H 07/29/17 05:36: Anion Gap 11, Glomerular Filtration Rate 13.4L, Blood Urea Nitrogen 35H, Creatinine 4.69H, Sodium Level 134L, Potassium Level 4.3, Chloride Level 97L, Carbon Dioxide Level 26, Calcium Level 8.6L CBC/BMP Laboratory Tests 07/29/17 05:36 Calcium Level 8.6 L ELLIOTT JACOBSEN DO Jul 29, 2017 11:43 NIKKO HERRON DO Aug 07, 2017 21:33
--- NOTE | 2017-07-31 06:00 | REPIR ---
DATE OF PROCEDURE: 07/22/2017 PREPROCEDURE DIAGNOSES: Endstage renal disease. Diabetes mellitus. Right first toe gangrene. POSTPROCEDURE DIAGNOSES: Endstage renal disease. Diabetes mellitus. Right first toe gangrene. PROCEDURE: Aortogram, iliofemoral angiogram selective, right common femoral artery catheter placement, right lower extremity angiogram, right superficial femoral artery catheter placement, right lower extremity angiogram, MYNX closure of the left common femoral arteriotomy. SURGEON: Dr. Dipika Molina TOOL FILER HAND: ANESTHESIA: Local with 10 mL of 2% lidocaine. FLUORO TIME: 1.4 minutes. CONTRAST: 23 mL. HEPARIN: None. COMPLICATIONS: None. DRAINS: None. SPECIMENS: None. IMPLANTS: None. INDICATION: The patient is a 66-year-old male with endstage renal disease and diabetes mellitus who have developed gangrene of his right first toe and was admitted for angiography with further treatment for his right first toe gangrene. Risks, benefits and alternative treatment options were discussed with the patient. DESCRIPTION OF PROCEDURE: The patient was taken to the angiography suite, place supine on the angiography room table and then prepped and draped in a standard surgical fashion. The left common femoral artery was cannulated with a micropuncture needle and after anesthetizing the overlying skin with 2% lidocaine, the micropuncture wire was advanced through the micropuncture needle, which was upsized to a micropuncture sheath. A Bentson wire was advanced through the micropuncture sheath which was upsized to a #5-Korean sheath. An Omni Flush catheter was then placed in the aorta and the aortogram was performed. The catheter was pulled down to level of the bifurcation of the iliac arteries and then iliofemoral angiogram was performed. The catheter was directed over the bifurcation and placed in the right common femoral artery and a right lower extremity angiogram was performed. The catheter was then directed as far distal as possible in the superficial femoral artery and the remainder of the right lower extremity angiography was performed. A MYNX closure device was then used to close the arteriotomy in the left common femoral artery. Once the catheters and wires were removed, an additional 10 minutes of adjunctive pressure was applied for hemostasis. Dressings were then applied. All instruments, sponge and needle counts were correct at the end of the case. There were no complications. Dr. Molina was present for and directed the entire case. The patient was transferred to the holding area and subsequently admitted in stable condition. RADIOLOGIC SUPERVISION INTERPRETATION: The aortogram showed the aorta to be widely patent as well as the common iliac, external and internal iliac bilaterally. The right lower extremity showed tibioperoneal disease distally. A MYNX closure device was used to close the arteriotomy in the left common femoral artery.
--- NOTE | 2017-08-01 18:06 | DSES ---
DATE OF ADMISSION: 07/22/2017 DATE OF DISCHARGE: 07/29/2017 PROCEDURES PERFORMED [facility] ADMISSION: Angiogram, guillotine right 1st toe amputation, right 1st toe completion amputation and revision with resection of metatarsal head and debridement of nonviable tissue. HOSPITAL COURSE: Patient was admitted and underwent an angiogram showing no intervention was required, and the patient subsequently underwent a right 1st toe amputation with continued antibiotic therapy and hemodialysis during his stay. The cellulitis in his right foot resolved, at which point the amputation site was closed with resection of the 1st metatarsal head and debridement of the wound. Patient was discharged on 07/29/2017 with instructions to followup in 1 week.
--- NOTE | 2017-08-01 18:57 | RO ---
DATE OF PROCEDURE: 07/24/2017 PREPROCEDURE DIAGNOSES: Diabetes mellitus. End-stage renal disease. Right first toe gangrene. POSTPROCEDURE DIAGNOSES: Diabetes mellitus. End-stage renal disease. Right first toe gangrene. OPERATIVE PROCEDURE: Guillotine right first toe amputation. SURGEON: iDpika Molina MD HAM PUMPER: None. ANESTHESIA: Monitored anesthesia care (MAC). ESTIMATED BLOOD LOSS: 25 mL IV FLUIDS: 150 mL. SPECIMENS: Right first toe. INDICATION: The patient is a 66-year-old male with gangrene and ischemic of his right first toe who underwent angiography showing no intervention required. The patient will now undergo amputation of the toe and will undergo a guillotine amputation due to gangrene of the right first toe and cellulitis in the right foot. Risks, benefits and alternative treatment options were discussed with the patient. Alternative treatment options included but were not limited to no intervention. DESCRIPTION OF PROCEDURE: The patient was taken to the operating room, placed supine on the operating room table and the right foot was prepped and draped in a standard surgical fashion. The right first toe was amputated at the metatarsophalangeal joint with a guillotine amputation performed and the wound left open. The wound was then packed with wet to dry dressing. All instrument, sponge and needle counts were correct at the end of the case. There were no complications. Dr. Molina was present for and directed the entire case. The patient was transferred to the recovery room and subsequently to the floor in stable condition.
--- NOTE | 2017-08-01 19:05 | RO ---
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 PROCEDURE: Completion right first toe amputation with resection of the first metatarsal head and debridement of nonviable tissue with excisional debridement of skin and subcutaneous tissue. SURGEON: Dr. Dipika Molina GUIDE PLANT: None. ANESTHESIA: MAC. ESTIMATED BLOOD LOSS: Minimal. IV FLUID: 15 mL. ESTIMATED BLOOD LOSS: 5 mL. INDICATION: The patient is a 66-year-old male with gangrene of his right first toe who underwent a guillotine amputation, who has now had resolution of his cellulitis and will undergo closure of the wound and resection of the first metatarsal head. Risks, benefits and alternative treatment options were discussed with the patient. DESCRIPTION OF PROCEDURE: Patient was taken to the operating room, placed supine on the operating room table and the right foot was prepped and draped in a standard surgical fashion. The tissue surrounding metatarsal head was sharply dissected free and then the metatarsal head was transected using a bone cutter. The nonviable skin and subcutaneous tissue was debrided sharply using a scalpel with excisional debridement after which the wound was closed using #2-0 nylon suture in vertical mattress fashion. Dressings were applied. The patient tolerated the procedure well. All instrument, sponge and needle counts were correct at the end of the case. There were no complications. Dr. Molina was present for and directed the entire case. The patient was transferred to the recovery room and then subsequently to the floor in stable condition.
== END 2017-07-29 11:05 | disposition home health service (06) | DRG 255 ==
LOC: M MSPAV 13:40
PROVIDERS: ADMIT Surgery Vascular Surgery; ATTEND Surgery Vascular Surgery
PROC: 0Y6P0Z1 Detachment at Right 1st Toe, High, Open Approach (ICD-10-PCS; principal; 2017-07-24 13:15)
PROC: 0JBR0ZZ Excision of Left Foot Subcutaneous Tissue and Fascia, Open Approach (ICD-10-PCS; 2017-07-29)
PROC: 0QBL0ZZ Excision of Right Tarsal, Open Approach (ICD-10-PCS; 2017-07-29)
DX: E11.52 Type 2 diabetes mellitus with diabetic peripheral angiopathy with gangrene (principal); N18.6 End stage renal disease; L03.115 Cellulitis of right lower limb; I12.0 Hypertensive chronic kidney disease with stage 5 chronic kidney disease or end stage renal disease; N25.81 Secondary hyperparathyroidism of renal origin; E11.22 Type 2 diabetes mellitus with diabetic chronic kidney disease; E11.69 Type 2 diabetes mellitus with other specified complication; E11.40 Type 2 diabetes mellitus with diabetic neuropathy, unspecified; E11.21 Type 2 diabetes mellitus with diabetic nephropathy; K21.9 Gastro-esophageal reflux disease without esophagitis; F32.9 Major depressive disorder, single episode, unspecified; E78.5 Hyperlipidemia, unspecified; G47.33 Obstructive sleep apnea (adult) (pediatric); E11.621 Type 2 diabetes mellitus with foot ulcer; E83.39 Other disorders of phosphorus metabolism; Z79.899 Other long term (current) drug therapy; D63.1 Anemia in chronic kidney disease

== ENCOUNTER 2017-08-05 18:38 | Emergency (ER) | payer MEDICARE ==
[2017-08-05 21:35] LABS: BASO % 0.3 % (0.0-1.0); EOS % 0.2 % (0.0-3.0); IMMATURE GRANULOCYTE # 0.1 10^3/uL (0-0); IMMATURE GRANULOCYTE % 0.5 % (0-0); LYMPH # 0.7 10^3/uL (1.5-4.5); LYMPH % 4.4 % (24.0-44.0); MEAN CORPUSCULAR HEMOGLOBIN 29.5 pg (27.0-33.0); MEAN CORPUSCULAR HGB CONC 33.4 g/dl (32.0-36.5); MEAN CORPUSCULAR VOLUME 88.3 fl (80.0-96.0); MONO # 1.5 10^3/uL (0.0-0.8); MONO % 9.8 % (0.0-5.0); NEUTROPHILS % 84.8 % (36.0-66.0); PLATELET COUNT, AUTOMATED 277 10^3/uL (150-450); RED CELL DISTRIBUTION WIDTH 16.1 % (11.5-14.5); WHITE BLOOD COUNT 15.3 10^3/uL (4.0-10.0)
[2017-08-05 22:01] LABS: ERYTHROCYTE SEDIMENTATION RATE 56 mm/hr (0-20)
[2017-08-05 22:14] LABS: INR 1.14
[2017-08-05 22:37] LABS: LACTIC ACID SEPSIS PROTOCOL 1.3 MMOL/L (0.4-2.0)
[2017-08-05 22:38] LABS: ALBUMIN 2.6 GM/DL (3.2-5.2); ALBUMIN/GLOBULIN RATIO 0.62 (1.00-1.93); ALKALINE PHOSPHATASE 234 U/L (45-117); ALT/SGPT 33 U/L (12-78); ANION GAP 12 MEQ/L (8-16); AST/SGOT 31 U/L (7-37); BILIRUBIN,DIRECT 0.5 MG/DL (0.0-0.2); BLOOD UREA NITROGEN 53 MG/DL (7-18); CALCIUM LEVEL 8.8 MG/DL (8.8-10.2); CARBON DIOXIDE LEVEL 30 MEQ/L (21-32); CHLORIDE LEVEL 87 MEQ/L (98-107); CREATININE FOR GFR 5.57 MG/DL (0.70-1.30); GLUCOSE, FASTING 216 MG/DL (80-110); POTASSIUM SERUM 4.8 MEQ/L (3.5-5.1); SODIUM LEVEL 129 MEQ/L (136-145); TOTAL PROTEIN 6.8 GM/DL (6.4-8.2)
[2017-08-05] MEDS: NS 1,000 ML IV (23:10)
[2017-08-05] MEDS: PIPERACILLIN/TAZOBACTAM SOD 2.25 GM in APPROPRIATE DILUENT 1 EA IV (23:28)
[2017-08-06] MEDS: MORPHINE 4 MG/ML 1ML SYRINGE IV (06:00)
== END 2017-08-06 06:22 | disposition short-term general hospital (02) ==
LOC: M ED 08-06 06:22
DX: I97.89 Other postprocedural complications and disorders of the circulatory system, not elsewhere classified (principal); Z89.411 Acquired absence of right great toe; L03.115 Cellulitis of right lower limb; W01.10XA Fall on same level from slipping, tripping and stumbling with subsequent striking against unspecified object, initial encounter; Y92.091 Bathroom in other non-institutional residence as the place of occurrence of the external cause; Y93.9 Activity, unspecified; I50.9 Heart failure, unspecified; I10 Essential (primary) hypertension; E78.5 Hyperlipidemia, unspecified; E11.9 Type 2 diabetes mellitus without complications; N18.6 End stage renal disease; F32.9 Major depressive disorder, single episode, unspecified; Z98.84 Bariatric surgery status; K42.9 Umbilical hernia without obstruction or gangrene; Z99.2 Dependence on renal dialysis; Z79.4 Long term (current) use of insulin; Z79.899 Other long term (current) drug therapy; Z88.8 Allergy status to other drugs, medicaments and biological substances
CPT/HCPCS: J2543

== ENCOUNTER → 2017-08-28 | Outpatient (REF) | payer MEDICARE | LOC: M SFHCPLAZ 06:40 | DX: D50.0 Iron deficiency anemia secondary to blood loss (chronic) (principal); N18.5 Chronic kidney disease, stage 5; Z53.9 Procedure and treatment not carried out, unspecified reason ==

== ENCOUNTER → 2017-09-09 | Outpatient (CLI) | payer MEDICARE ==
[~2017-09-09] MED LIST changes: -/TERBI25T PO; -APAP325T4 PO; -ASPI81CH32 PO; -ATOR40TA75 PO; -CINA30TA PO; -DIAL3000 PO; -DOXY100C37 PO; -FURO80TA2 PO; -GABA-279 PO; -HUMU70IN SC; -INSULADS SC; +ISOVUE-300 61% 50ML VIAL (Q9967) As Ordered; -KEFL500C17 PO; -LOSA100T36 PO; -Lantus SQ; -NEPHTAB PO; -PANT40TA2 PO; -PROT1TAB2 PO; -RENV2.4P PO; -SERT-155 PO; -SUCR1TA PO; -SUCR1TAB56 PO; -Spironolactone PO; -THYR30TA PO; -TORS100T PO; -TORS20TA2 PO; -TRIL600T PO
[2017-09-09 13:46] LABS: BEDSIDE GLUCOSE 133 MG/DL (80-115)
== END | disposition home or self-care (01) ==
LOC: M IRPRO 12:21
DX: T82.858A Stenosis of other vascular prosthetic devices, implants and grafts, initial encounter (principal); N18.6 End stage renal disease; E11.9 Type 2 diabetes mellitus without complications
CPT/HCPCS: 36902

== ENCOUNTER → 2017-09-18 | Outpatient (CLI) | payer MEDICARE ==
[~2017-09-18] MED LIST changes: -ISOVUE-300 61% 50ML VIAL (Q9967) As Ordered; +ISOVUE-370 76% 100ML VIAL (Q9967) As Ordered
== END ==
LOC: M RAD 14:08
DX: Z89.611 Acquired absence of right leg above knee (principal)
CPT/HCPCS: Q9967

== ENCOUNTER → 2017-10-08 | Outpatient (REF) | payer MEDICARE ==
[2017-10-08 12:49] LABS: ANION GAP 7 MEQ/L (8-16); BLOOD UREA NITROGEN 51 MG/DL (7-18); CALCIUM LEVEL 9.1 MG/DL (8.8-10.2); CARBON DIOXIDE LEVEL 33 MEQ/L (21-32); CHLORIDE LEVEL 95 MEQ/L (98-107); CREATININE FOR GFR 4.65 MG/DL (0.70-1.30); GLOMERULAR FILTRATION RATE 13.5 (>49); GLUCOSE, FASTING 254 MG/DL (70-100); SODIUM LEVEL 135 MEQ/L (136-145)
[2017-10-08 12:52] LABS: POTASSIUM SERUM 5.4 MEQ/L (3.5-5.1)
[2017-10-08 13:08] LABS: BASO # 0.1 10^3/uL (0.0-0.2); BASO % 0.9 % (0.0-1.0); EOS # 0.1 10^3/uL (0.0-0.50); EOS % 2.6 % (0.0-3.0); HEMATOCRIT 34.2 % (42.0-52.0); IMMATURE GRANULOCYTE % 0.2 % (0-3.0); LYMPH # 1.1 10^3/uL (1.5-4.5); LYMPH % 20.2 % (24.0-44.0); MEAN CORPUSCULAR HEMOGLOBIN 29.5 pg (27.0-33.0); MEAN CORPUSCULAR HGB CONC 32.2 g/dl (32.0-36.5); MEAN CORPUSCULAR VOLUME 91.7 fl (80.0-96.0); MONO # 0.5 10^3/uL (0.0-0.8); MONO % 8.7 % (0.0-5.0); NEUTROPHILS # 3.6 10^3/uL (1.8-7.7); NEUTROPHILS % 67.4 % (36.0-66.0); PLATELET COUNT, AUTOMATED 186 10^3/uL (150-450); RED BLOOD COUNT 3.73 10^6/uL (4.30-6.10); RED CELL DISTRIBUTION WIDTH 14.2 % (11.5-14.5); WHITE BLOOD COUNT 5.4 10^3/uL (4.0-10.0)
[2017-10-08 13:16] LABS: INR 1.02; PROTHROMBIN TIME 13.5 SECONDS (12.4-14.5)
[2017-10-08 13:17] LABS: PARTIAL THROMBOPLASTIN TIME 36.7 SECONDS (26.8-37.9)
== END ==
LOC: M SFHCPLAZ 09:44
DX: Z01.818 Encounter for other preprocedural examination (principal); T87.89 Other complications of amputation stump; Z79.899 Other long term (current) drug therapy
CPT/HCPCS: 80048

== ENCOUNTER 2017-10-21 10:56 | Inpatient (IN) | payer MEDICARE ==
[2017-10-21] MEDS: DOCUSATE SODIUM 100 MG CAP PO ×2 (09:00→21:00)
[2017-10-21] MEDS: SENOKOT S TAB PO ×2 (09:00→21:00)
[~2017-10-21 10:56] MED LIST changes: +BISACODYL 10 MG SUPP PR; -ISOVUE-370 76% 100ML VIAL (Q9967) As Ordered; +MOM 30ML SUSPENSION UDC PO; +ONDANSETRON 4MG/2ML VIAL (J2405) IV
[2017-10-21 12:07] LABS: BASO % 0.5 % (0.0-1.0); EOS # 0.1 10^3/uL (0.0-0.50); EOS % 1.3 % (0.0-3.0); HEMATOCRIT 39.8 % (42.0-52.0); HEMOGLOBIN 12.7 g/dl (14.0-18.0); IMMATURE GRANULOCYTE % 0.3 % (0-3.0); LYMPH # 0.6 10^3/uL (1.5-4.5); LYMPH % 9.9 % (24.0-44.0); MEAN CORPUSCULAR HEMOGLOBIN 29.3 pg (27.0-33.0); MEAN CORPUSCULAR HGB CONC 31.9 g/dl (32.0-36.5); MEAN CORPUSCULAR VOLUME 91.7 fl (80.0-96.0); MONO # 0.6 10^3/uL (0.0-0.8); MONO % 9.9 % (0.0-5.0); NEUTROPHILS # 4.6 10^3/uL (1.8-7.7); NEUTROPHILS % 78.1 % (36.0-66.0); PLATELET COUNT, AUTOMATED 193 10^3/uL (150-450); RED BLOOD COUNT 4.34 10^6/uL (4.30-6.10); RED CELL DISTRIBUTION WIDTH 14.6 % (11.5-14.5)
[2017-10-21 12:18] LABS: INR 1.01; PROTHROMBIN TIME 13.4 SECONDS (12.4-14.5)
[2017-10-21 12:19] LABS: PARTIAL THROMBOPLASTIN TIME 35.5 SECONDS (26.8-37.9)
[2017-10-21 12:35] LABS: ANION GAP 10 MEQ/L (8-16); BLOOD UREA NITROGEN 33 MG/DL (7-18); CARBON DIOXIDE LEVEL 32 MEQ/L (21-32); CHLORIDE LEVEL 93 MEQ/L (98-107); CREATININE FOR GFR 3.85 MG/DL (0.70-1.30); GLOMERULAR FILTRATION RATE 16.8 (>49); GLUCOSE, FASTING 244 MG/DL (70-100); POTASSIUM SERUM 3.9 MEQ/L (3.5-5.1); SODIUM LEVEL 135 MEQ/L (136-145)
[2017-10-21] MEDS: PIPERACILLIN/TAZOBACTAM SOD 2.25 GM in APPROPRIATE DILUENT 1 EA IV ×2 (14:00→21:11)
[2017-10-21] MEDS ORDERED: fentaNYL 100 MCG/2 ML INJECTION (J3010) As Ordered (17:19)
[2017-10-21] MEDS ORDERED: LIDOCAINE 2% INJ 100 MG/5 ML SDV (FOR ANES.) As Ordered (17:19)
[2017-10-21] MEDS ORDERED: PROPOFOL 200 MG/20 ML VIAL As Ordered (17:19)
[2017-10-21] MEDS ORDERED: MIDAZOLAM INJ 2 MG/2 ML VIAL (J2250) As Ordered (17:19)
[2017-10-21] MEDS ORDERED: ONDANSETRON 4MG/2ML VIAL (J2405) As Ordered (17:19)
[2017-10-21] MEDS ORDERED: PANTOPRAZOLE 40MG TAB (PROTONIX) PO (17:30)
[2017-10-21] MEDS ORDERED: GABAPENTIN 100 MG CAP PO (17:30)
[2017-10-21] MEDS ORDERED: PERCOCET 5MG/325MG TAB As Ordered (17:46)
[2017-10-21] MEDS: PERCOCET 5MG/325MG TAB PO (17:52)
[2017-10-21] MEDS ORDERED: diphenhydrAMINE INJ 50MG/ML VIAL (J1200) IV (18:00)
[2017-10-21] MEDS: LR 1,000 ML IV (18:00)
[2017-10-21] MEDS ORDERED: PROMETHAZINE INJ 25 MG/ML VIAL (J2550) IV (18:00)
[2017-10-21] MEDS ORDERED: MORPHINE 10 MG/ML 1ML VIAL (J2270) IV (18:00)
[2017-10-21] MEDS ORDERED: ONDANSETRON 4MG/2ML VIAL (J2405) IV (18:00)
[2017-10-21] MEDS ORDERED: NORCO, ANEXSIA 5/325MG TABLET (HYDROcodone/ACETAMINOPHEN) PO (18:00)
[2017-10-21] MEDS ORDERED: METOCLOPRAMIDE INJ 10MG/2ML VIAL (J2765) IV (18:00)
[2017-10-21] MEDS ORDERED: NALBUPHINE HCL 10 MG/ML AMP (J2300) IV (18:00)
[2017-10-21] MEDS ORDERED: LR 1,000 ML IV (18:00)
[2017-10-21] MEDS ORDERED: fentaNYL 100 MCG/2 ML INJECTION (J3010) IV (18:00)
[2017-10-21] MEDS ORDERED: KETOROLAC 30 MG/ML VIAL (J1885) IV (18:00)
[2017-10-21] MEDS ORDERED: MEPERIDINE INJ 25 MG/ML VIAL (J2175) IV (18:00)
[2017-10-21] MEDS ORDERED: PERCOCET 5MG/325MG TAB PO (18:00)
[2017-10-21] MEDS ORDERED: HYDROmorphone HCL 1 MG/ML SYRINGE (J1170) IV (18:00)
[2017-10-21] MEDS: NORCO, ANEXSIA 5/325MG TABLET (HYDROcodone/ACETAMINOPHEN) PO ×2 (19:34→21:10)
[2017-10-22] MEDS: NORCO, ANEXSIA 5/325MG TABLET (HYDROcodone/ACETAMINOPHEN) PO ×3 (00:03→18:12)
[2017-10-22] MEDS: MORPHINE 4 MG/ML 1ML VIAL (J2270) IV ×4 (01:18→22:08)
[2017-10-22] MEDS: PIPERACILLIN/TAZOBACTAM SOD 2.25 GM in APPROPRIATE DILUENT 1 EA IV ×3 (06:00→22:09)
[2017-10-22] MEDS: SENOKOT S TAB PO ×2 (07:55→22:07)
[2017-10-22] MEDS: MULTIVITAMINS/MINERALS THERAP 1 TAB PO (07:55)
[2017-10-22] MEDS: SERTRALINE HCL 50 MG TAB PO (07:55)
[2017-10-22] MEDS: DOCUSATE SODIUM 100 MG CAP PO ×2 (07:55→22:07)
[2017-10-22] MEDS: TORSEMIDE 100 MG TAB PO (07:55)
[2017-10-23 01:48] LABS: BEDSIDE GLUCOSE 154 MG/DL (80-115)
[2017-10-23] MEDS: NORCO, ANEXSIA 5/325MG TABLET (HYDROcodone/ACETAMINOPHEN) PO ×3 (02:40→13:31)
[2017-10-23] MEDS: PIPERACILLIN/TAZOBACTAM SOD 2.25 GM in APPROPRIATE DILUENT 1 EA IV ×2 (06:05→14:00)
[2017-10-23] MEDS ORDERED: PIPERACILLIN/TAZOBACTAM SOD 2.25 GM in APPROPRIATE DILUENT 1 EA IV (06:12)
[2017-10-23] MEDS: SENOKOT S TAB PO (08:51)
[2017-10-23] MEDS: SERTRALINE HCL 50 MG TAB PO (08:51)
[2017-10-23] MEDS: MULTIVITAMINS/MINERALS THERAP 1 TAB PO (08:51)
[2017-10-23] MEDS: TORSEMIDE 100 MG TAB PO (08:51)
[2017-10-23] MEDS: DOCUSATE SODIUM 100 MG CAP PO (08:51)
[2017-10-23] MEDS: DIAPER RELIEF PASTE (DESITIN) 60GM TOP (09:00)
== END 2017-10-23 13:50 | disposition home or self-care (01) | DRG 500 ==
LOC: M MS5PR 10:56
PROC: 0KBS0ZZ Excision of Right Lower Leg Muscle, Open Approach (ICD-10-PCS; principal; 2017-10-21 11:10)
PROC: 5A1D70Z Performance of Urinary Filtration, Intermittent, Less than 6 Hours Per Day (ICD-10-PCS; 2017-10-21 11:10)
PROC: 0KCS0ZZ Extirpation of Matter from Right Lower Leg Muscle, Open Approach (ICD-10-PCS; 2017-10-21 17:06)
DX: T87.89 Other complications of amputation stump (principal); N18.6 End stage renal disease; N25.81 Secondary hyperparathyroidism of renal origin; I13.2 Hypertensive heart and chronic kidney disease with heart failure and with stage 5 chronic kidney disease, or end stage renal disease; I50.22 Chronic systolic (congestive) heart failure; E11.22 Type 2 diabetes mellitus with diabetic chronic kidney disease; D63.1 Anemia in chronic kidney disease; E11.51 Type 2 diabetes mellitus with diabetic peripheral angiopathy without gangrene; K21.9 Gastro-esophageal reflux disease without esophagitis; F32.9 Major depressive disorder, single episode, unspecified; E11.319 Type 2 diabetes mellitus with unspecified diabetic retinopathy without macular edema; E78.5 Hyperlipidemia, unspecified; G47.33 Obstructive sleep apnea (adult) (pediatric); Z98.84 Bariatric surgery status; Z98.41 Cataract extraction status, right eye; Z98.42 Cataract extraction status, left eye; Z95.828 Presence of other vascular implants and grafts; Z99.2 Dependence on renal dialysis; Z89.511 Acquired absence of right leg below knee

== ENCOUNTER 2017-10-27 09:16 | Inpatient (IN) | payer MEDICARE ==
[2017-10-27] MEDS ORDERED: NS 1,000 ML IV (09:45)
[2017-10-27] MEDS: NS 500 ML IV (10:00)
[2017-10-27 10:01] LABS: BASO % 0.4 % (0.0-1.0); EOS # 0.1 10^3/uL (0.0-0.50); EOS % 1.1 % (0.0-3.0); HEMOGLOBIN 9.1 g/dl (14.0-18.0); IMMATURE GRANULOCYTE % 0.4 % (0-3.0); LYMPH # 0.9 10^3/uL (1.5-4.5); LYMPH % 11.3 % (24.0-44.0); MEAN CORPUSCULAR HEMOGLOBIN 29.3 pg (27.0-33.0); MEAN CORPUSCULAR HGB CONC 32.5 g/dl (32.0-36.5); MONO # 0.5 10^3/uL (0.0-0.8); MONO % 5.8 % (0.0-5.0); NEUTROPHILS # 6.7 10^3/uL (1.8-7.7); PLATELET COUNT, AUTOMATED 181 10^3/uL (150-450); RED BLOOD COUNT 3.11 10^6/uL (4.30-6.10); RED CELL DISTRIBUTION WIDTH 14.5 % (11.5-14.5); WHITE BLOOD COUNT 8.2 10^3/uL (4.0-10.0)
[2017-10-27 10:28] LABS: ALBUMIN 2.4 GM/DL (3.2-5.2); ALBUMIN/GLOBULIN RATIO 0.63 (1.00-1.93); ALKALINE PHOSPHATASE 83 U/L (45-117); ALT/SGPT 6 U/L (12-78); AMYLASE 22 U/L (25-115); ANION GAP 13 MEQ/L (8-16); AST/SGOT 9 U/L (7-37); BILIRUBIN,DIRECT 0.4 MG/DL (0.0-0.2); BILIRUBIN,TOTAL 0.7 MG/DL (0.2-1.0); BLOOD UREA NITROGEN 57 MG/DL (7-18); CALCIUM LEVEL 8.8 MG/DL (8.8-10.2); CARBON DIOXIDE LEVEL 26 MEQ/L (21-32); CHLORIDE LEVEL 93 MEQ/L (98-107); CK-MB VALUE MASS 1.3 NG/ML (0.0-3.6); CPK CREATINE PHOSPHOKINASE 23 U/L (39-308); CREATININE FOR GFR 4.97 MG/DL (0.70-1.30); GLOMERULAR FILTRATION RATE 12.5 (>49); GLUCOSE, FASTING 206 MG/DL (70-100); LIPASE 82 U/L (73-393); MB/CK RELATIVE INDEX 5.65 (< OR =4); POTASSIUM SERUM 5.1 MEQ/L (3.5-5.1); SODIUM LEVEL 132 MEQ/L (136-145); TOTAL PROTEIN 6.2 GM/DL (6.4-8.2); TROPONIN I 0.08 NG/ML (< 0.10)
[2017-10-27 10:30] LABS: LACTIC ACID SEPSIS PROTOCOL 2.1 MMOL/L (0.4-2.0)
[2017-10-27 10:52] LABS: INR 1.05; PROTHROMBIN TIME 13.8 SECONDS (12.4-14.5)
[2017-10-27 10:53] LABS: PARTIAL THROMBOPLASTIN TIME 35.1 SECONDS (26.8-37.9)
[2017-10-27] MEDS: PANTOPRAZOLE 40MG INJ (PROTONIX) (C9113) IV (11:10)
[2017-10-27] MEDS: NS 1,000 ML IV ×2 (11:36→23:21)
[2017-10-27] MEDS ORDERED: HumaLOG INSULIN (NovoLOG) PER UNIT SC ×2 (12:00→21:00)
[2017-10-27] MEDS ORDERED: GLUCOSE 4 GM CHEW TABLET PO (12:15)
[2017-10-27] MEDS ORDERED: GLUCAGON FOR INJ 1 MG VIAL (J1610) SC (12:15)
[2017-10-27 15:17] LABS: HEMATOCRIT 19.5 % (42.0-52.0); MEAN CORPUSCULAR HEMOGLOBIN 29.4 pg (27.0-33.0); MEAN CORPUSCULAR HGB CONC 33.3 g/dl (32.0-36.5); MEAN CORPUSCULAR VOLUME 88.2 fl (80.0-96.0); PLATELET COUNT, AUTOMATED 164 10^3/uL (150-450); RED BLOOD COUNT 2.21 10^6/uL (4.30-6.10); RED CELL DISTRIBUTION WIDTH 14.4 % (11.5-14.5); WHITE BLOOD COUNT 7.1 10^3/uL (4.0-10.0)
[2017-10-27 15:27] LABS: HEMOGLOBIN 6.5 g/dl (14.0-18.0)
[2017-10-27 18:31] LABS: BEDSIDE GLUCOSE 111 MG/DL (80-115)
[2017-10-27 18:32] LABS: POTASSIUM SERUM 3.9 MEQ/L (3.5-5.1)
[2017-10-27] MEDS: EPINEPHrine 1MG/10ML SYRINGE 1.5IN As Ordered (18:53)
[2017-10-27 19:34] LABS: BEDSIDE GLUCOSE 140 MG/DL (80-115)
[2017-10-27] MEDS ORDERED: LR 1,000 ML IV (19:45)
[2017-10-27] MEDS: PANTOPRAZOLE SODIUM 40 MG in D5W 50 ML IV ×2 (20:40→23:21)
[2017-10-27] MEDS: HumaLOG INSULIN (NovoLOG) PER UNIT SC ×3 (20:40→23:37)
[2017-10-27] MEDS: (RENVELA) SEVELAMER **CARBONate** 800 MG TAB PO (20:40)
[2017-10-27 20:41] LABS: IMMEDIATE SPIN CROSSMATCH 1 2
[2017-10-27 21:13] LABS: HEMATOCRIT 22.8 % (42.0-52.0); HEMOGLOBIN 7.5 g/dl (14.0-18.0); MEAN CORPUSCULAR HGB CONC 32.9 g/dl (32.0-36.5); PLATELET COUNT, AUTOMATED 145 10^3/uL (150-450); RED BLOOD COUNT 2.59 10^6/uL (4.30-6.10); RED CELL DISTRIBUTION WIDTH 15.1 % (11.5-14.5); WHITE BLOOD COUNT 9.7 10^3/uL (4.0-10.0)
[2017-10-27 23:44] LABS: BEDSIDE GLUCOSE 90 MG/DL (80-115)
[2017-10-28] MEDS: PANTOPRAZOLE SODIUM 40 MG in D5W 50 ML IV ×5 (04:11→23:04)
[2017-10-28 04:31] LABS: HEMATOCRIT 25.5 % (42.0-52.0); HEMOGLOBIN 8.4 g/dl (14.0-18.0); MEAN CORPUSCULAR HEMOGLOBIN 28.8 pg (27.0-33.0); MEAN CORPUSCULAR HGB CONC 32.9 g/dl (32.0-36.5); MEAN CORPUSCULAR VOLUME 87.3 fl (80.0-96.0); PLATELET COUNT, AUTOMATED 155 10^3/uL (150-450); RED BLOOD COUNT 2.92 10^6/uL (4.30-6.10); RED CELL DISTRIBUTION WIDTH 15.5 % (11.5-14.5); WHITE BLOOD COUNT 10.1 10^3/uL (4.0-10.0)
[2017-10-28 04:45] LABS: ANION GAP 9 MEQ/L (8-16); BLOOD UREA NITROGEN 29 MG/DL (7-18); CALCIUM LEVEL 8.1 MG/DL (8.8-10.2); CARBON DIOXIDE LEVEL 29 MEQ/L (21-32); CHLORIDE LEVEL 100 MEQ/L (98-107); CREATININE FOR GFR 2.75 MG/DL (0.70-1.30); GLOMERULAR FILTRATION RATE 24.8 (>49); GLUCOSE, FASTING 104 MG/DL (70-100); POTASSIUM SERUM 4.2 MEQ/L (3.5-5.1); SODIUM LEVEL 138 MEQ/L (136-145)
[2017-10-28] MEDS: HumaLOG INSULIN (NovoLOG) PER UNIT SC ×3 (06:00→17:56)
[2017-10-28 06:33] LABS: BEDSIDE GLUCOSE 97 MG/DL (80-115)
[2017-10-28] MEDS: (RENVELA) SEVELAMER **CARBONate** 800 MG TAB PO ×3 (08:07→17:57)
[2017-10-28] MEDS: SERTRALINE HCL 50 MG TAB PO (09:08)
[2017-10-28 09:53] LABS: HEMATOCRIT 23.9 % (42.0-52.0); HEMOGLOBIN 8.1 g/dl (14.0-18.0); MEAN CORPUSCULAR HEMOGLOBIN 29.9 pg (27.0-33.0); MEAN CORPUSCULAR HGB CONC 33.9 g/dl (32.0-36.5); MEAN CORPUSCULAR VOLUME 88.2 fl (80.0-96.0); PLATELET COUNT, AUTOMATED 156 10^3/uL (150-450); RED BLOOD COUNT 2.71 10^6/uL (4.30-6.10); RED CELL DISTRIBUTION WIDTH 15.7 % (11.5-14.5); WHITE BLOOD COUNT 9.1 10^3/uL (4.0-10.0)
[2017-10-28 12:24] LABS: HEMOGLOBIN 9.1 g/dl (14.0-18.0)
[2017-10-28 12:27] LABS: BEDSIDE GLUCOSE 188 MG/DL (80-115)
[2017-10-28 15:17] LABS: HEMATOCRIT 25.7 % (42.0-52.0); HEMOGLOBIN 8.5 g/dl (14.0-18.0); MEAN CORPUSCULAR HEMOGLOBIN 29.8 pg (27.0-33.0); MEAN CORPUSCULAR HGB CONC 33.1 g/dl (32.0-36.5); MEAN CORPUSCULAR VOLUME 90.2 fl (80.0-96.0); PLATELET COUNT, AUTOMATED 172 10^3/uL (150-450); RED BLOOD COUNT 2.85 10^6/uL (4.30-6.10); RED CELL DISTRIBUTION WIDTH 15.9 % (11.5-14.5); WHITE BLOOD COUNT 9.1 10^3/uL (4.0-10.0)
[2017-10-28] MEDS: BISACODYL 5 MG TAB PO (17:57)
[2017-10-28 17:58] LABS: BEDSIDE GLUCOSE 147 MG/DL (80-115)
[2017-10-28] MEDS: GABAPENTIN 100 MG CAP PO ×2 (20:24)
[2017-10-28] MEDS: GOLYTELY SOLN 4000 ML BTL PO (20:24)
[2017-10-28 21:46] LABS: HEMOGLOBIN 8.7 g/dl (14.0-18.0); MEAN CORPUSCULAR HEMOGLOBIN 28.6 pg (27.0-33.0); MEAN CORPUSCULAR HGB CONC 32.2 g/dl (32.0-36.5); MEAN CORPUSCULAR VOLUME 88.8 fl (80.0-96.0); PLATELET COUNT, AUTOMATED 184 10^3/uL (150-450); RED BLOOD COUNT 3.04 10^6/uL (4.30-6.10); RED CELL DISTRIBUTION WIDTH 15.7 % (11.5-14.5); WHITE BLOOD COUNT 8.5 10^3/uL (4.0-10.0)
[2017-10-29] MEDS: DEXTROSE 50% 50 ML SYRINGE IV (00:38)
[2017-10-29] MEDS: NORCO, ANEXSIA 5/325MG TABLET (HYDROcodone/ACETAMINOPHEN) PO (01:14)
[2017-10-29 01:42] LABS: BEDSIDE GLUCOSE 27 MG/DL (80-115)
[2017-10-29 01:42] LABS: BEDSIDE GLUCOSE 78 MG/DL (80-115)
[2017-10-29] MEDS: PANTOPRAZOLE SODIUM 40 MG in D5W 50 ML IV ×4 (04:07→20:50)
[2017-10-29 05:03] LABS: HEMATOCRIT 25.1 % (42.0-52.0); HEMOGLOBIN 8.4 g/dl (14.0-18.0); MEAN CORPUSCULAR HEMOGLOBIN 30.1 pg (27.0-33.0); MEAN CORPUSCULAR HGB CONC 33.5 g/dl (32.0-36.5); PLATELET COUNT, AUTOMATED 180 10^3/uL (150-450); RED BLOOD COUNT 2.79 10^6/uL (4.30-6.10); RED CELL DISTRIBUTION WIDTH 15.5 % (11.5-14.5); WHITE BLOOD COUNT 7.7 10^3/uL (4.0-10.0)
[2017-10-29] MEDS: HumaLOG INSULIN (NovoLOG) PER UNIT SC ×4 (05:15→18:00)
[2017-10-29 05:20] LABS: BEDSIDE GLUCOSE 61 MG/DL (80-115)
[2017-10-29 05:23] LABS: ANION GAP 7 MEQ/L (8-16); BLOOD UREA NITROGEN 33 MG/DL (7-18); CALCIUM LEVEL 8.5 MG/DL (8.8-10.2); CARBON DIOXIDE LEVEL 30 MEQ/L (21-32); CHLORIDE LEVEL 100 MEQ/L (98-107); GLOMERULAR FILTRATION RATE 18.1 (>49); GLUCOSE, FASTING 62 MG/DL (70-100); SODIUM LEVEL 137 MEQ/L (136-145)
[2017-10-29] MEDS: GOLYTELY SOLN 4000 ML BTL PO (06:06)
[2017-10-29 06:37] LABS: BEDSIDE GLUCOSE 80 MG/DL (80-115)
[2017-10-29] MEDS: (RENVELA) SEVELAMER **CARBONate** 800 MG TAB PO ×3 (08:00→18:00)
[2017-10-29] MEDS: SERTRALINE HCL 50 MG TAB PO (09:00)
[2017-10-29] MEDS: FLEET ENEMA PR (09:22)
[2017-10-29 09:34] LABS: HEMATOCRIT 25.1 % (42.0-52.0); HEMOGLOBIN 8.2 g/dl (14.0-18.0); MEAN CORPUSCULAR HEMOGLOBIN 29.1 pg (27.0-33.0); MEAN CORPUSCULAR HGB CONC 32.7 g/dl (32.0-36.5); PLATELET COUNT, AUTOMATED 206 10^3/uL (150-450); RED BLOOD COUNT 2.82 10^6/uL (4.30-6.10); RED CELL DISTRIBUTION WIDTH 15.4 % (11.5-14.5); WHITE BLOOD COUNT 8.9 10^3/uL (4.0-10.0)
[2017-10-29] MEDS ORDERED: LIDOCAINE 2% INJ 100 MG/5 ML SDV (FOR ANES.) As Ordered (09:47)
[2017-10-29] MEDS ORDERED: PROPOFOL 200 MG/20 ML VIAL As Ordered (09:47)
[2017-10-29] MEDS ORDERED: PHENYLephrine HCL 500 MCG/5 ML (100MCG/ML) SYRINGE (J2370) As Ordered (10:52)
[2017-10-29 12:36] LABS: BEDSIDE GLUCOSE 108 MG/DL (80-115)
[2017-10-29 16:13] LABS: HEMATOCRIT 28.7 % (42.0-52.0); HEMOGLOBIN 9.3 g/dl (14.0-18.0); MEAN CORPUSCULAR HEMOGLOBIN 29.1 pg (27.0-33.0); MEAN CORPUSCULAR HGB CONC 32.4 g/dl (32.0-36.5); MEAN CORPUSCULAR VOLUME 89.7 fl (80.0-96.0); PLATELET COUNT, AUTOMATED 226 10^3/uL (150-450); RED CELL DISTRIBUTION WIDTH 15.4 % (11.5-14.5); WHITE BLOOD COUNT 10.3 10^3/uL (4.0-10.0)
[2017-10-29 18:20] LABS: BEDSIDE GLUCOSE 104 MG/DL (80-115)
[2017-10-30] MEDS: NORCO, ANEXSIA 5/325MG TABLET (HYDROcodone/ACETAMINOPHEN) PO ×3 (00:28→18:45)
[2017-10-30] MEDS: PANTOPRAZOLE SODIUM 40 MG in D5W 50 ML IV ×2 (01:28→05:57)
[2017-10-30 05:43] LABS: HEMATOCRIT 25.5 % (42.0-52.0); HEMOGLOBIN 8.4 g/dl (14.0-18.0); MEAN CORPUSCULAR HEMOGLOBIN 29.9 pg (27.0-33.0); MEAN CORPUSCULAR HGB CONC 32.9 g/dl (32.0-36.5); MEAN CORPUSCULAR VOLUME 90.7 fl (80.0-96.0); PLATELET COUNT, AUTOMATED 173 10^3/uL (150-450); RED BLOOD COUNT 2.81 10^6/uL (4.30-6.10); RED CELL DISTRIBUTION WIDTH 14.8 % (11.5-14.5); WHITE BLOOD COUNT 8.4 10^3/uL (4.0-10.0)
[2017-10-30 05:59] LABS: ANION GAP 8 MEQ/L (8-16); BLOOD UREA NITROGEN 36 MG/DL (7-18); CALCIUM LEVEL 8.3 MG/DL (8.8-10.2); CARBON DIOXIDE LEVEL 27 MEQ/L (21-32); CHLORIDE LEVEL 100 MEQ/L (98-107); CREATININE FOR GFR 4.12 MG/DL (0.70-1.30); GLOMERULAR FILTRATION RATE 15.5 (>49); GLUCOSE, FASTING 99 MG/DL (70-100); POTASSIUM SERUM 4.2 MEQ/L (3.5-5.1); SODIUM LEVEL 135 MEQ/L (136-145)
[2017-10-30] MEDS: HumaLOG INSULIN (NovoLOG) PER UNIT SC ×5 (06:00→21:00)
[2017-10-30 07:23] LABS: BEDSIDE GLUCOSE 111 MG/DL (80-115)
[2017-10-30 07:23] LABS: BEDSIDE GLUCOSE 100 MG/DL (80-115)
[2017-10-30 07:58] LABS: IMMEDIATE SPIN CROSSMATCH 1 2
[2017-10-30] MEDS: (RENVELA) SEVELAMER **CARBONate** 800 MG TAB PO ×3 (08:00→17:57)
[2017-10-30] MEDS ORDERED: SLF 3 ML SYR IV (10:45)
[2017-10-30] MEDS: SERTRALINE HCL 50 MG TAB PO (12:06)
[2017-10-30 12:10] LABS: BEDSIDE GLUCOSE 75 MG/DL (80-115)
[2017-10-30] MEDS: SLF 3 ML SYR IV ×2 (13:08→22:00)
[2017-10-30] MEDS ORDERED: HumaLOG INSULIN (NovoLOG) PER UNIT SC (17:30)
[2017-10-30 17:48] LABS: BEDSIDE GLUCOSE 87 MG/DL (80-115)
[2017-10-30 21:34] LABS: BEDSIDE GLUCOSE 137 MG/DL (80-115)
[2017-10-30 22:19] LABS: HEMATOCRIT 29.5 % (42.0-52.0); HEMOGLOBIN 9.7 g/dl (14.0-18.0)
[2017-10-31] MEDS: NORCO, ANEXSIA 5/325MG TABLET (HYDROcodone/ACETAMINOPHEN) PO ×2 (04:51→22:53)
[2017-10-31] MEDS: SLF 3 ML SYR IV ×3 (04:52→20:49)
[2017-10-31 07:08] LABS: BEDSIDE GLUCOSE 105 MG/DL (80-115)
[2017-10-31] MEDS: HumaLOG INSULIN (NovoLOG) PER UNIT SC ×4 (07:30→20:49)
[2017-10-31] MEDS: (RENVELA) SEVELAMER **CARBONate** 800 MG TAB PO ×3 (08:00→18:00)
[2017-10-31] MEDS: MIDODRINE 5 MG TAB PO (09:08)
[2017-10-31] MEDS: PANTOPRAZOLE 40MG TAB (PROTONIX) PO (09:08)
[2017-10-31] MEDS: SERTRALINE HCL 50 MG TAB PO (09:08)
[2017-10-31 12:27] LABS: BEDSIDE GLUCOSE 150 MG/DL (80-115)
[2017-10-31 17:42] LABS: APPEARANCE, BODY FLUID CLEAR (CLEAR); BF DIFF IF INDICATED? YES (NO); BF MONONUCLEAR CELL % 86.6 % (0-0); BF POLYMORPHONUCLEAR CELL % 13.4 % (0-0); PLEURAL FL COLOR YELLOW (COLORLESS); RBC BODY FLUID < 2 10^3/uL (<2); SOURCE, BODY FLUID PLEURAL; WBC BODY FLUID 75 /uL (0-10)
[2017-10-31 17:52] LABS: AMYLASE, BODY FLUID 23 U/L (NOT ESTABLISHED); LDH, BODY FLUID 54 U/L (NOT ESTABLISHED); SOURCE, BODY FLUID AMYLASE PLEURAL; SOURCE, BODY FLUID GLUCOSE PLEURAL; SOURCE, BODY FLUID LDH PLEURAL; SOURCE, BODY FLUID TOT PROTEIN PLEURAL; TOTAL PROTEIN, BODY FLUID 2.2 G/DL (NOT ESTABLISHED)
[2017-10-31 17:55] LABS: SOURCE, BODY FLUID pH PLEURAL
[2017-10-31 17:56] LABS: PH BODY FLUID 7.649 UNITS (NOT ESTABLISHED)
[2017-10-31 20:51] LABS: BEDSIDE GLUCOSE 166 MG/DL (80-115)
[2017-11-01 04:11] LABS: HEMATOCRIT 27.9 % (42.0-52.0); HEMOGLOBIN 8.9 g/dl (14.0-18.0); MEAN CORPUSCULAR HEMOGLOBIN 29.7 pg (27.0-33.0); MEAN CORPUSCULAR HGB CONC 31.9 g/dl (32.0-36.5); PLATELET COUNT, AUTOMATED 205 10^3/uL (150-450); RED CELL DISTRIBUTION WIDTH 14.9 % (11.5-14.5); WHITE BLOOD COUNT 9.5 10^3/uL (4.0-10.0)
[2017-11-01 04:28] LABS: ANION GAP 3 MEQ/L (8-16); BLOOD UREA NITROGEN 25 MG/DL (7-18); CALCIUM LEVEL 8.5 MG/DL (8.8-10.2); CARBON DIOXIDE LEVEL 32 MEQ/L (21-32); CHLORIDE LEVEL 101 MEQ/L (98-107); CREATININE FOR GFR 3.67 MG/DL (0.70-1.30); GLOMERULAR FILTRATION RATE 17.8 (>49); GLUCOSE, FASTING 100 MG/DL (70-100); POTASSIUM SERUM 4.4 MEQ/L (3.5-5.1); SODIUM LEVEL 136 MEQ/L (136-145)
[2017-11-01] MEDS: SLF 3 ML SYR IV ×3 (06:00→20:23)
[2017-11-01] MEDS: HumaLOG INSULIN (NovoLOG) PER UNIT SC ×4 (07:30→20:21)
[2017-11-01] MEDS: SERTRALINE HCL 50 MG TAB PO (07:51)
[2017-11-01] MEDS: MIDODRINE 5 MG TAB PO (07:51)
[2017-11-01] MEDS: PANTOPRAZOLE 40MG TAB (PROTONIX) PO (07:51)
[2017-11-01] MEDS: TORSEMIDE 100 MG TAB PO (07:52)
[2017-11-01] MEDS: (RENVELA) SEVELAMER **CARBONate** 800 MG TAB PO ×3 (07:56→17:20)
[2017-11-01 20:14] LABS: BEDSIDE GLUCOSE 158 MG/DL (80-115)
[2017-11-01] MEDS ORDERED: DARBEPOETIN 100 MCG/0.5 ML *DIALYSIS* SYRINGE (J0882) IV (22:45)
[2017-11-02 04:08] LABS: ANION GAP 4 MEQ/L (8-16); BLOOD UREA NITROGEN 15 MG/DL (7-18); CALCIUM LEVEL 8.4 MG/DL (8.8-10.2); CARBON DIOXIDE LEVEL 31 MEQ/L (21-32); CHLORIDE LEVEL 102 MEQ/L (98-107); CREATININE FOR GFR 2.62 MG/DL (0.70-1.30); GLOMERULAR FILTRATION RATE 26.2 (>49); GLUCOSE, FASTING 120 MG/DL (70-100); POTASSIUM SERUM 4.2 MEQ/L (3.5-5.1); SODIUM LEVEL 137 MEQ/L (136-145)
[2017-11-02] MEDS: SLF 3 ML SYR IV ×3 (05:34→21:49)
[2017-11-02] MEDS: HumaLOG INSULIN (NovoLOG) PER UNIT SC ×4 (07:30→21:00)
[2017-11-02] MEDS: (RENVELA) SEVELAMER **CARBONate** 800 MG TAB PO ×3 (08:00→17:00)
[2017-11-02] MEDS: SERTRALINE HCL 50 MG TAB PO (08:18)
[2017-11-02] MEDS: TORSEMIDE 100 MG TAB PO (08:18)
[2017-11-02] MEDS: PANTOPRAZOLE 40MG TAB (PROTONIX) PO (08:18)
[2017-11-02 12:02] LABS: BEDSIDE GLUCOSE 142 MG/DL (80-115)
[2017-11-02 16:56] LABS: BEDSIDE GLUCOSE 154 MG/DL (80-115)
[2017-11-02] MEDS: FUROSEMIDE 100 MG/10 ML VIAL (J1940) IV (21:48)
[2017-11-03] MEDS: NORCO, ANEXSIA 5/325MG TABLET (HYDROcodone/ACETAMINOPHEN) PO ×2 (00:57→22:27)
[2017-11-03 04:23] LABS: ANION GAP 5 MEQ/L (8-16); BLOOD UREA NITROGEN 25 MG/DL (7-18); CALCIUM LEVEL 8.6 MG/DL (8.8-10.2); CARBON DIOXIDE LEVEL 30 MEQ/L (21-32); CHLORIDE LEVEL 101 MEQ/L (98-107); CREATININE FOR GFR 3.49 MG/DL (0.70-1.30); GLOMERULAR FILTRATION RATE 18.8 (>49); GLUCOSE, FASTING 126 MG/DL (70-100); MAGNESIUM LEVEL 2.3 MG/DL (1.8-2.4); PHOSPHORUS LEVEL 4.9 MG/DL (2.5-4.9); POTASSIUM SERUM 4.6 MEQ/L (3.5-5.1); SODIUM LEVEL 136 MEQ/L (136-145)
[2017-11-03] MEDS: SERTRALINE HCL 50 MG TAB PO (06:10)
[2017-11-03] MEDS: SLF 3 ML SYR IV ×3 (06:10→22:00)
[2017-11-03] MEDS: (RENVELA) SEVELAMER **CARBONate** 800 MG TAB PO ×3 (06:10→18:12)
[2017-11-03] MEDS: PANTOPRAZOLE 40MG TAB (PROTONIX) PO (06:10)
[2017-11-03] MEDS: TORSEMIDE 100 MG TAB PO (06:16)
[2017-11-03] MEDS: HumaLOG INSULIN (NovoLOG) PER UNIT SC ×4 (08:09→21:00)
[2017-11-03] MEDS: MIDODRINE 5 MG TAB PO (08:09)
[2017-11-03 09:23] LABS: BASO % 0.6 % (0.0-1.0); EOS # 0.1 10^3/uL (0.0-0.50); EOS % 1.4 % (0.0-3.0); HEMATOCRIT 30.2 % (42.0-52.0); HEMOGLOBIN 9.7 g/dl (14.0-18.0); IMMATURE GRANULOCYTE % 0.6 % (0-3.0); LYMPH % 13.6 % (24.0-44.0); MEAN CORPUSCULAR HEMOGLOBIN 29.9 pg (27.0-33.0); MEAN CORPUSCULAR HGB CONC 32.1 g/dl (32.0-36.5); MEAN CORPUSCULAR VOLUME 93.2 fl (80.0-96.0); MONO # 0.6 10^3/uL (0.0-0.8); MONO % 8.4 % (0.0-5.0); NEUTROPHILS # 5.4 10^3/uL (1.8-7.7); NEUTROPHILS % 75.4 % (36.0-66.0); PLATELET COUNT, AUTOMATED 245 10^3/uL (150-450); RED BLOOD COUNT 3.24 10^6/uL (4.30-6.10); RED CELL DISTRIBUTION WIDTH 15.1 % (11.5-14.5); WHITE BLOOD COUNT 7.1 10^3/uL (4.0-10.0)
[2017-11-03 09:47] LABS: ALBUMIN 2.4 GM/DL (3.2-5.2); ANION GAP 8 MEQ/L (8-16); BLOOD UREA NITROGEN 28 MG/DL (7-18); CALCIUM LEVEL 8.7 MG/DL (8.8-10.2); CARBON DIOXIDE LEVEL 28 MEQ/L (21-32); CHLORIDE LEVEL 99 MEQ/L (98-107); CREATININE FOR GFR 3.59 MG/DL (0.70-1.30); GLOMERULAR FILTRATION RATE 18.2 (>49); GLUCOSE, FASTING 181 MG/DL (70-100); POTASSIUM SERUM 4.3 MEQ/L (3.5-5.1); SODIUM LEVEL 135 MEQ/L (136-145)
[2017-11-03 13:53] LABS: BEDSIDE GLUCOSE 74 MG/DL (80-115)
[2017-11-03 17:52] LABS: BEDSIDE GLUCOSE 70 MG/DL (80-115)
[2017-11-03 19:55] LABS: ANION GAP 5 MEQ/L (8-16); BLOOD UREA NITROGEN 15 MG/DL (7-18); CALCIUM LEVEL 8.5 MG/DL (8.8-10.2); CARBON DIOXIDE LEVEL 31 MEQ/L (21-32); CHLORIDE LEVEL 102 MEQ/L (98-107); CREATININE FOR GFR 2.26 MG/DL (0.70-1.30); GLOMERULAR FILTRATION RATE 31.1 (>49); GLUCOSE, FASTING 109 MG/DL (70-100); MAGNESIUM LEVEL 2.2 MG/DL (1.8-2.4); POTASSIUM SERUM 4.1 MEQ/L (3.5-5.1); SODIUM LEVEL 138 MEQ/L (136-145)
[2017-11-04 05:36] LABS: HEMATOCRIT 30.3 % (42.0-52.0); HEMOGLOBIN 9.5 g/dl (14.0-18.0); MEAN CORPUSCULAR HEMOGLOBIN 29.9 pg (27.0-33.0); MEAN CORPUSCULAR HGB CONC 31.4 g/dl (32.0-36.5); MEAN CORPUSCULAR VOLUME 95.3 fl (80.0-96.0); PLATELET COUNT, AUTOMATED 216 10^3/uL (150-450); RED BLOOD COUNT 3.18 10^6/uL (4.30-6.10); WHITE BLOOD COUNT 8.5 10^3/uL (4.0-10.0)
[2017-11-04 05:54] LABS: ALBUMIN 2.2 GM/DL (3.2-5.2); ANION GAP 6 MEQ/L (8-16); BLOOD UREA NITROGEN 19 MG/DL (7-18); CALCIUM LEVEL 8.4 MG/DL (8.8-10.2); CARBON DIOXIDE LEVEL 30 MEQ/L (21-32); CHLORIDE LEVEL 101 MEQ/L (98-107); CREATININE FOR GFR 2.71 MG/DL (0.70-1.30); GLOMERULAR FILTRATION RATE 25.2 (>49); GLUCOSE, FASTING 200 MG/DL (70-100); PHOSPHORUS LEVEL 4.5 MG/DL (2.5-4.9); POTASSIUM SERUM 4.1 MEQ/L (3.5-5.1); SODIUM LEVEL 137 MEQ/L (136-145)
[2017-11-04] MEDS: SLF 3 ML SYR IV ×2 (06:00→13:48)
[2017-11-04] MEDS: SERTRALINE HCL 50 MG TAB PO (07:12)
[2017-11-04] MEDS: TORSEMIDE 100 MG TAB PO (07:12)
[2017-11-04] MEDS: PANTOPRAZOLE 40MG TAB (PROTONIX) PO (07:14)
[2017-11-04] MEDS: (RENVELA) SEVELAMER **CARBONate** 800 MG TAB PO ×3 (07:14→18:00)
[2017-11-04] MEDS: HumaLOG INSULIN (NovoLOG) PER UNIT SC ×4 (08:11→21:59)
[2017-11-04 12:58] LABS: BEDSIDE GLUCOSE 88 MG/DL (80-115)
[2017-11-04] MEDS: MIDODRINE 5 MG TAB PO (15:20)
[2017-11-04] MEDS: NORCO, ANEXSIA 5/325MG TABLET (HYDROcodone/ACETAMINOPHEN) PO (22:05)
[2017-11-04 22:37] LABS: BEDSIDE GLUCOSE 124 MG/DL (80-115)
[2017-11-05] MEDS: SLF 3 ML SYR IV ×2 (00:01→06:51)
[2017-11-05 05:38] LABS: HEMATOCRIT 30.7 % (42.0-52.0); HEMOGLOBIN 9.7 g/dl (14.0-18.0); MEAN CORPUSCULAR HEMOGLOBIN 29.9 pg (27.0-33.0); MEAN CORPUSCULAR HGB CONC 31.6 g/dl (32.0-36.5); MEAN CORPUSCULAR VOLUME 94.8 fl (80.0-96.0); PLATELET COUNT, AUTOMATED 213 10^3/uL (150-450); RED BLOOD COUNT 3.24 10^6/uL (4.30-6.10); WHITE BLOOD COUNT 7.6 10^3/uL (4.0-10.0)
[2017-11-05 05:52] LABS: ALBUMIN 2.3 GM/DL (3.2-5.2); ANION GAP 5 MEQ/L (8-16); BLOOD UREA NITROGEN 26 MG/DL (7-18); CALCIUM LEVEL 8.8 MG/DL (8.8-10.2); CARBON DIOXIDE LEVEL 30 MEQ/L (21-32); CHLORIDE LEVEL 102 MEQ/L (98-107); CREATININE FOR GFR 3.42 MG/DL (0.70-1.30); GLOMERULAR FILTRATION RATE 19.3 (>49); GLUCOSE, FASTING 130 MG/DL (70-100); PHOSPHORUS LEVEL 4.8 MG/DL (2.5-4.9); POTASSIUM SERUM 4.3 MEQ/L (3.5-5.1); SODIUM LEVEL 137 MEQ/L (136-145)
[2017-11-05] MEDS: (RENVELA) SEVELAMER **CARBONate** 800 MG TAB PO ×2 (07:26→11:55)
[2017-11-05] MEDS: HumaLOG INSULIN (NovoLOG) PER UNIT SC ×2 (07:30→11:55)
[2017-11-05] MEDS: PANTOPRAZOLE 40MG TAB (PROTONIX) PO (08:51)
[2017-11-05] MEDS: SERTRALINE HCL 50 MG TAB PO (08:51)
[2017-11-05] MEDS: TORSEMIDE 100 MG TAB PO (08:52)
[2017-11-05 17:13] LABS: BEDSIDE GLUCOSE 152 MG/DL (80-115)
[2017-11-05 17:13] LABS: BEDSIDE GLUCOSE 102 MG/DL (80-115)
== END 2017-11-05 12:50 | disposition short-term general hospital (02) | DRG 377 ==
LOC: M PCU 10-28 23:30 → M ED 09:16 → M ED INP 11:59 → M PCU 15:23 → M ICU 15:49
PROC: 3E0G8GC Introduction of Other Therapeutic Substance into Upper GI, Via Natural or Artificial Opening Endoscopic (ICD-10-PCS; principal; 2017-10-27 11:30)
PROC: 0DJ08ZZ Inspection of Upper Intestinal Tract, Via Natural or Artificial Opening Endoscopic (ICD-10-PCS; 2017-10-27 11:30)
PROC: 0DJD8ZZ Inspection of Lower Intestinal Tract, Via Natural or Artificial Opening Endoscopic (ICD-10-PCS; 2017-10-27 18:37)
PROC: 30233N1 Transfusion of Nonautologous Red Blood Cells into Peripheral Vein, Percutaneous Approach (ICD-10-PCS; 2017-10-27 18:37)
PROC: 0W993ZZ Drainage of Right Pleural Cavity, Percutaneous Approach (ICD-10-PCS; 2017-10-27 18:37)
DX: K29.51 Unspecified chronic gastritis with bleeding (principal); N18.6 End stage renal disease; I50.23 Acute on chronic systolic (congestive) heart failure; D62 Acute posthemorrhagic anemia; J90 Pleural effusion, not elsewhere classified; E46 Unspecified protein-calorie malnutrition; N25.81 Secondary hyperparathyroidism of renal origin; K28.7 Chronic gastrojejunal ulcer without hemorrhage or perforation; E11.319 Type 2 diabetes mellitus with unspecified diabetic retinopathy without macular edema; K21.9 Gastro-esophageal reflux disease without esophagitis; F32.9 Major depressive disorder, single episode, unspecified; K64.4 Residual hemorrhoidal skin tags; E86.1 Hypovolemia; I08.0 Rheumatic disorders of both mitral and aortic valves; Z79.4 Long term (current) use of insulin; Z79.899 Other long term (current) drug therapy; Z88.8 Allergy status to other drugs, medicaments and biological substances; E78.5 Hyperlipidemia, unspecified; D63.1 Anemia in chronic kidney disease; G47.33 Obstructive sleep apnea (adult) (pediatric); Z89.511 Acquired absence of right leg below knee; I95.9 Hypotension, unspecified